=== PATIENT | female | born 1995 | race Caucasian/White ===

== ENCOUNTER 2021-01-21 03:05 | Emergency (ER) | payer MEDICAID ==
[2021-01-21] MEDS ORDERED: Reglan 10 MG/2 ML IV ONE (03:38)
[2021-01-21] MEDS ORDERED: TYLENOL 325 MG PO ONE (03:38)
[2021-01-21] MEDS ORDERED: MORPHINE SULFATE 4 MG INJ IV ONE (03:38)
[2021-01-21] MEDS ORDERED: BENADRYL 50 MG/ML IV ONE (03:38)
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
[2021-01-21] MEDS ORDERED: BENADRYL 50 MG/ML ONE (03:49)
[2021-01-21] MEDS ORDERED: TYLENOL 325 MG ONE ×2 (03:50→03:54)
[2021-01-21] MEDS ORDERED: MORPHINE SULFATE 4 MG INJ ONE ×2 (03:50→06:09)
[2021-01-21] MEDS ORDERED: Reglan 10 MG/2 ML ONE (03:50)
[2021-01-21] MEDS ORDERED: Sodium Chloride 0.9% 1000 ML 1,000 ML ONE (03:50)
[2021-01-21] MEDS: Sodium Chloride 0.9% 1000 ML 1,000 ML IV STA ×2 (03:53→06:19)
[2021-01-21] MEDS ORDERED: MORPHINE SULFATE 4 MG INJ IM ONE (06:08)
[2021-01-21 06:11] VITALS: BP 155/109; PULSE 74
[2021-01-23 08:39] VITALS: O2SAT 99
== END 2021-01-21 06:35 | disposition home or self-care (01) ==
LOC: ED 03:05
DX: G43.909 Migraine, unspecified, not intractable, without status migrainosus (principal)
CPT/HCPCS: 96372; 96374; 96375; 99284; J1200; J2270; A9270-GY

== ENCOUNTER 2021-02-15 21:08 | Emergency (ER) | payer MEDICAID ==
[2021-02-15] MEDS ORDERED: Zofran 4 MG/2 ML VIAL ONE (21:13)
[2021-02-15] MEDS ORDERED: MORPHINE SULFATE 4 MG INJ IV ONE (21:22)
[2021-02-15] MEDS ORDERED: Sodium Chloride 0.9% 1000 ML 1,000 ML IV STA (21:22)
[2021-02-15] MEDS ORDERED: Reglan 10 MG/2 ML IV ONE (21:22)
[2021-02-15] MEDS ORDERED: BENADRYL 50 MG/ML IV ONE (21:22)
[2021-02-15] MEDS ORDERED: Zofran 4 MG/2 ML VIAL IV ONE (21:32)
[2021-02-15] MEDS ORDERED: BENADRYL 50 MG/ML ONE (21:34)
[2021-02-15] MEDS ORDERED: Reglan 10 MG/2 ML ONE (21:35)
[2021-02-15] MEDS ORDERED: MORPHINE SULFATE 4 MG INJ ONE (21:35)
[2021-02-15] MEDS ORDERED: Sodium Chloride 0.9% 1000 ML 1,000 ML ONE (21:35)
[2021-02-15] MEDS ORDERED: MORPHINE SULFATE 2 MG INJ IV ONE (21:39)
[2021-02-15] MEDS ORDERED: MORPHINE SULFATE 2 MG INJ ONE (21:40)
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
[2021-02-15 21:47] LABS: Absolute Neutrophil Ct (ANC) 1.98 (1.4-6.9); BASOPHIL % 0.6 % (0.0-0.4); Basophil (Absolute #) 0.03 (0-0.4); Eosinophil % 4.3 % (0.00-5.0); Eosinophil (Absolute #) 0.21 (0-0.5); Hematocrit 39.9 % (35-47); Hemoglobin 12.9 gm/dl (12.0-16.0); Lymphocyte (Absolute #) 2.21 (1.0-4.6); Mean Cell Volume 94.3 fl (78-100); Mean Corpuscular Hemoglobin 30.5 pg (26-32); Mean Corpuscular Hgb Concent. 32.3 g/dl (32-36); Mean Platelet Volume 9.8 fl (7.5-11.0); Monocyte (Absolute #) 0.48 (0.0-1.3); Monocytes % 9.8 % (0.0-12.0); Neutrophil % 40.3 % (36.0-66.0); Platelet Count 185 K/mm3 (150-450); Red Blood Count 4.23 M/mm3 (4.1-5.4); Red Cell Distribution Width 13.4 % (11.5-14.0); White Blood Count 4.9 K/mm3 (4.0-10.5)
[2021-02-15 21:51] LABS: ALBUMIN 4.2 g/dL (3.5-5.0); ALKALINE PHOSPHATASE 100 U/L (38-126); ANION GAP 21.6 MEQ/L (5-15); BLOOD UREA NITROGEN 12 mg/dL (7-17); CHLORIDE 101 mmol/L (98-107); Calcium 9.4 mg/dL (8.4-10.2); Carbon Dioxide 28 mmol/L (22-30); Creatinine 1 0.51 mg/dL (0.52-1.04); EST GLOMERULAR FILTRATION RATE > 60.0 ML/MIN; Glucose 85 mg/dL (74-106); LIPASE 103 U/L (23-300); SGOT/AST 56 U/L (14-36); SGPT/ALT 87 U/L (0-35); SODIUM 147 mmol/L (137-145); Total Protein 7.6 g/dL (6.3-8.2)
[2021-02-16] MEDS ORDERED: MORPHINE SULFATE 2 MG INJ IV ONE (00:06)
[2021-02-16] MEDS ORDERED: MORPHINE SULFATE 2 MG INJ ONE (00:10)
[2021-02-16 00:40] VITALS: O2SAT 96
[2021-02-16 01:03] VITALS: BP 103/63; PULSE 65
--- NOTE | 2021-02-16 08:44 | XRAY ---
Indication: Aspiration. Comparison: None Portable chest demonstrates a few left perihilar calcified granulomas. Remaining heart and lungs unremarkable. 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 Impression: Nonacute chest with chronic features.
== END 2021-02-16 01:09 | disposition home or self-care (01) ==
LOC: ED 21:08
DX: E86.0 Dehydration (principal); G43.909 Migraine, unspecified, not intractable, without status migrainosus
CPT/HCPCS: 36415; 71045; 80053; 81025; 83690; 85025; 96360; 96361; 96374; 96375; 96376; 99284; J1200; J2270; J2405

== ENCOUNTER 2021-02-17 18:38 | Emergency (ER) | payer MEDICAID ==
[2021-02-17] MEDS ORDERED: TORAdol 30 mg Injection IV ONE (18:53)
[2021-02-17] MEDS ORDERED: Compazine 10 MG/2 ML IV ONE (18:53)
[2021-02-17] MEDS ORDERED: BENADRYL 50 MG/ML IV ONE (18:54)
[2021-02-17] MEDS ORDERED: BENADRYL 50 MG/ML ONE (18:56)
[2021-02-17] MEDS ORDERED: Compazine 10 MG/2 ML ONE (18:56)
[2021-02-17] MEDS ORDERED: Sodium Chloride 0.9% 1000 ML 1,000 ML ONE (18:56)
[2021-02-17] MEDS ORDERED: Sodium Chloride 0.9% 1000 ML 1,000 ML IV SCH (19:00)
[2021-02-17] MEDS ORDERED: TORAdol 30 mg Injection ONE (19:59)
[2021-02-17 20:04] VITALS: O2SAT 96
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
[2021-02-17 21:13] VITALS: BP 135/97; PULSE 64
--- NOTE | 2021-02-18 08:39 | XRAY ---
Indication: Headache, nausea, and vomiting. Multiple contiguous axial images obtained through the head without contrast. Comparison: None Normal appearing brain parenchyma, ventricles, and bony calvarium. Visualized paranasal sinuses and mastoid air cells are clear. Impression: Normal CT head without contrast exam.
== END 2021-02-17 21:18 | disposition home or self-care (01) ==
LOC: ED 18:38
DX: G43.909 Migraine, unspecified, not intractable, without status migrainosus (principal)
CPT/HCPCS: 36000; 70450; 94760; 96360; 96374; 96375; 99284; J1200; J1885

== ENCOUNTER 2021-02-26 23:18 | Emergency (ER) | payer MEDICAID ==
[2021-02-26] MEDS ORDERED: Compazine 10 MG/2 ML IV ONE (23:24)
[2021-02-26] MEDS ORDERED: TORAdol 30 mg Injection IV ONE (23:24)
[2021-02-26] MEDS ORDERED: BENADRYL 12.5 MG/5 ML PO STA (23:25)
[2021-02-26] MEDS ORDERED: Compazine 10 MG/2 ML ONE (23:53)
[2021-02-26] MEDS ORDERED: BENADRYL 12.5 MG/5 ML ONE (23:53)
[2021-02-26] MEDS ORDERED: TORAdol 30 mg Injection ONE (23:53)
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
[2021-02-27 01:23] VITALS: BP 105/56; PULSE 75
[2021-02-27 02:14] VITALS: O2SAT 98
== END 2021-02-27 02:14 | disposition home or self-care (01) ==
LOC: ED 23:18
DX: G43.909 Migraine, unspecified, not intractable, without status migrainosus (principal)
CPT/HCPCS: 96374; 96375; 99284; J1885; A9270-GY

== ENCOUNTER 2024-05-24 12:59 | Inpatient (IN) | payer MEDICAID ==
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
[2024-05-24] MEDS ORDERED: TYLENOL 325 MG ONE (14:06)
[2024-05-24] MEDS ORDERED: Sodium Chloride 0.9% 1000 ML 1,000 ML ONE (14:06)
[2024-05-24] MEDS: TYLENOL 325 MG PO ONE (14:07)
[2024-05-24] MEDS: Sodium Chloride 0.9% 1000 ML 1,000 ML IV STA (14:07)
[2024-05-24 14:35] LABS: Absolute Neutrophil Ct (ANC) 15.53 x10^3/uL (1.56-6.13); BASOPHIL % 0.3 % (0.1-1.2); Basophil (Absolute #) 0.05 x10^3/uL (0.01-0.08); Eosinophil (Absolute #) 0 x10^3/uL (0.04-0.36); Hematocrit 32.1 % (34.1-44.9); Hemoglobin 10.8 g/dL (11.2-15.7); IMMATURE GRAN # 0.23 x10^3u/L (0.001-0.031); IMMATURE GRAN % 1.2 % (0.001-0.429); Lymphocyte (Absolute #) 1.44 x10^3/uL (1.18-3.74); Lymphocytes % 7.5 % (19.3-51.7); Mean Cell Volume 86.1 fL (79.4-94.8); Mean Corpuscular Hgb Concent. 33.6 g/dL (32.2-35.5); Mean Platelet Volume 9.7 fL (9.4-12.3); Monocyte (Absolute #) 1.88 x10^3/uL (0.24-0.86); Monocytes % 9.8 % (4.7-12.5); Neutrophil % 81.2 % (34.0-71.1); Platelet Count 163 x10^3/uL (182-369); Red Blood Count 3.73 x10^6/uL (3.93-5.22); Red Cell Distribution Width 14.6 % (11.7-14.4); White Blood Count 19.1 x10^3/uL (3.98-10.04)
[2024-05-24 14:48] LABS: ALBUMIN 3.6 g/dL (3.5-5.0); ANION GAP 12.4 MEQ/L (5-15); BILIRUBIN,TOTAL 1.1 mg/dL (0.2-1.3); Calcium 8.2 mg/dL (8.4-10.2); Creatinine 1 0.86 mg/dL (0.52-1.04); EST GLOMERULAR FILTRATION RATE 95.5 ML/MIN; Potassium 3.5 mmol/L (3.5-5.1); Total Protein 6.7 g/dL (6.3-8.2)
[2024-05-24 15:12] LABS: Slide Review 1 YES
[2024-05-24 15:19] LABS: HCG URINE TEST NEGATIVE (NEGATIVE)
[2024-05-24] MEDS ORDERED: ROCEPHIN 2 GM/100 ML NACL 2 GM/100 ML IVPB IV ONE (15:20)
[2024-05-24] MEDS: ROCEPHIN 2 GM/100 ML NACL 2 GM/100 ML IVPB IV ONE (15:22)
[2024-05-24 15:49] LABS: Appearance Cloudy (Clear); Bacteria Rare /HPF (None Seen); Bilirubin Negative (Negative); Blood Large (Negative); Glucose, Urine Negative (Negative); Ketones Negative (Negative); Leukocyte Esterase Large (Negative); Nitrite Negative (Negative); Ph 6.5 (4.6-8.0); Protein,Urine Dip 100 (Negative); Urobilinogen 0.2 mg/dL (0.2); WBC >100 /HPF (0-5)
[2024-05-24 15:51] LABS: Epithelial Cells Rare /HPF (None Seen); Hyaline Casts None Seen /LPF (0-2)
--- NOTE | 2024-05-24 16:44 | XRAY ---
CLINICAL HISTORY: abd pain, uti COMPARISON: None TECHNIQUE: Non-contrast CT of the abdomen and pelvis was performed, with the following protocol: axial images, and reconstructed coronal and sagittal images. No intravenous contrast was administered. One of the following dose reduction techniques was utilized for this exam: Automated exposure control, adjustment of the mA and/or kV according to patient size, and use of iterative reconstruction. FINDINGS: Lung bases show left basal consolidation band, with ground glass veiling, may be sequel of previous infection. Abdomen: Liver: Normal in size, shape, and density. No focal lesions, cysts, or masses were identified. Gallbladder and Biliary System: The gallbladder is normal in size and shape. No wall thickening, pericholecystic fluid, or gallstones were identified. Pancreas: Pancreatic head, body, and tail are visualized and appear normal in size and density. No pancreatic masses or calcifications were noted. Spleen: Normal in size, shape, and density. No splenic lesions or masses were identified. Kidneys and Adrenal Glands: Both kidneys are enlarged in size, with mild [id number], no obstructing stones. Focal right renal parenchymal hypodense area in concern for focal acute pyelonephritis. Bilateral perinephris stranding, and retroperitoneal fluid tracking to right iliac fossa. Adrenal glands are unremarkable. Appendix: The appendix is normal in size without cary appendiceal fat stranding, and without an appendicolith. No evidence of appendiceal abscess or perforation. Pelvis: Urinary Bladder: martinez`s catheter in place, diffuse mild smooth wall thickening of 7.5 mm. Uterus: Normal in size and contour. No masses or abnormal thickening. Ovaries: Not well visualized but no gross abnormalities noted. Vagina: Normal in contour and wall thickness. Cervix: No evidence of mass or abnormal thickening. Peritoneal and Retroperitoneal Structures: No free fluid or abnormal fluid collections were identified within the abdomen or pelvis. No lymphadenopathy was noted. Bowel: The visualized bowel loops are normal in caliber and appearance. No evidence of bowel obstruction or wall thickening. Bones and Soft Tissues: Bone window shows mild osteopenia, multilevel facet and sacro-iliac joints (more on left) arthropathy. IMPRESSION: 1. Both kidneys are enlarged in size, with mild [id number], no obstructing stones. 2. Focal right renal parenchymal hypodense area in concern for focal acute pyelonephritis. 3. Bilateral perinephris stranding, and retroperitoneal fluid tracking to right iliac fossa. 4. Urinary Bladder: martinez`s catheter in place, diffuse mild smooth wall thickening of 7.5 mm. 5. Lung bases show left basal consolidation band, with ground glass veiling, may be sequel of previous infection. 6. Bone window shows mild osteopenia, multilevel facet and sacro-iliac joints (more on left) arthropathy. Overall picture of acute upper and lower urinary tract infectious process, denoted by: [facility] ER was called at [phone] at 03:37 PM SURG TECH, 05/24/2024 Merced Fernandez was informed regarding the presence of significant medical findings in the report. Electronically Signed by: Mariya Dimas MD. (05/24/2024 16:40:43 EDT)
[2024-05-24] MEDS ORDERED: Zofran 4 MG/2 ML VIAL ONE (17:40)
[2024-05-24] MEDS: Zofran 4 MG/2 ML VIAL IV ONE (17:41)
[2024-05-24] MEDS ORDERED: SUBLIMAZE 100 MCG/2 ML ONE (17:41)
[2024-05-24] MEDS: SUBLIMAZE 100 MCG/2 ML IV ONE (17:42)
[2024-05-24 19:16] LABS: Hemoglobin 9.8 g/dL (11.2-15.7); Mean Cell Volume 87.5 fL (79.4-94.8); Mean Corpuscular Hemoglobin 28.6 pg (25.6-32.2); Mean Corpuscular Hgb Concent. 32.7 g/dL (32.2-35.5); Mean Platelet Volume 9.6 fL (9.4-12.3); Platelet Count 153 x10^3/uL (182-369); Red Blood Count 3.43 x10^6/uL (3.93-5.22); Red Cell Distribution Width 14.6 % (11.7-14.4); White Blood Count 16.2 x10^3/uL (3.98-10.04)
[2024-05-24 19:36] LABS: ANION GAP 9.4 MEQ/L (5-15); Calcium 7.8 mg/dL (8.4-10.2); Creatinine 1 0.76 mg/dL (0.52-1.04); EST GLOMERULAR FILTRATION RATE 110.8 ML/MIN; PREALBUMIN 4.72 mg/dL (17.6-36.0); Potassium 3.4 mmol/L (3.5-5.1)
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
[2024-05-24] MEDS ORDERED: NON-FORMULARY ITEM (Quetiapine Fumarate [Quetiapine Fumarate] 50 MG Tablet) PO SCH (22:00)
[2024-05-24] MEDS ORDERED: NON-FORMULARY ITEM (Melatonin [Melatonin] 10 MG Tablet) PO SCH (22:00)
[2024-05-24] MEDS ORDERED: LACTOBACILLUS ACIDOPHILUS PO SCH (22:00)
[2024-05-24] MEDS ORDERED: NON-FORMULARY ITEM (Midodrine Hcl [Midodrine Hcl] 10 MG Tablet) PO SCH (22:00)
[2024-05-24] MEDS ORDERED: GUAIFENESIN 1200 MG PO SCH (22:00)
[2024-05-24] MEDS ORDERED: NON-FORMULARY ITEM (Baclofen [Baclofen] 5 MG Tablet) PO SCH (22:00)
[2024-05-24] MEDS ORDERED: OXYCODONE HCL 15 MG PO SCH (22:00)
[2024-05-24] MEDS ORDERED: NON-FORMULARY ITEM (Sertraline Hcl [Sertraline Hcl] 100 MG Tablet) PO SCH (22:00)
[2024-05-24] MEDS ORDERED: NON-FORMULARY ITEM (Gabapentin [Gabapentin] 800 MG Tablet) PO SCH (22:00)
[2024-05-24] MEDS ORDERED: SIMETHICONE 125 MG PO SCH (22:00)
[2024-05-24] MEDS ORDERED: XANAX 1 MG PO SCH (22:00)
[2024-05-24] MEDS: Sodium Chloride 0.9% 1000 ML 1,000 ML IV SCH (22:23)
[2024-05-24] MEDS: Mylicon 80MG PO SCH (22:23)
[2024-05-24] MEDS: ZOLOFT 50 MG TABLET PO SCH (22:26)
[2024-05-24] MEDS: Neurontin PO SCH (22:27)
[2024-05-24] MEDS: SENOKOT 8.6 MG PO SCH (22:27)
[2024-05-24] MEDS: MELATONIN PO SCH (22:27)
[2024-05-24] MEDS: LIORESAL 10 MG PO SCH (22:27)
[2024-05-24] MEDS: xanAX 0.5 MG PO SCH (22:29)
[2024-05-24] MEDS: Mucinex 600MG ER Tabs PO SCH (22:29)
[2024-05-24] MEDS: Pepcid 20 MG PO SCH (22:29)
[2024-05-24] MEDS: Oxy-IR 5 MG PO SCH (22:29)
[2024-05-24] MEDS: Docusate Sodium 100 MG PO SCH (22:29)
[2024-05-24] MEDS: Acidophilus TABLET PO SCH (22:29)
[2024-05-24] MEDS: Miralax Powder 17GM PACKET PO SCH (22:30)
[2024-05-24] MEDS: DUONEB 0.5-3 MG/3 ml Neb IH SCH (22:31)
[2024-05-24] MEDS: Zithromax 500 MG/ 250 ML NaCl Premix 500 MG/250 ML IVPB IV SCH (22:33)
[2024-05-24] MEDS: PROAMATINE PO SCH (22:33)
--- NOTE | 2024-05-24 23:21 | XRAY ---
CLINICAL HISTORY: pna COMPARISON: None. TECHNIQUE: Contiguous axial CT images of the chest were acquired without administration of intravenous contrast. Coronal and sagittal reconstructions were obtained. One of the following dose reduction techniques were utilized for this exam: Automated exposure control, adjustment of the mA and/or kV according to patient size, use of iterative reconstruction. FINDINGS: Lungs: 8 mm calcified nodule in the apical posterior segment of left upper lobe with thick fibroatelectatic bands and posterior parietal pleural thickening in the left lung. No evidence of interstitial lung disease or emphysema. No pleural effusion or pleural thickening. Mediastinum: Few subcentimeteric mediastinal nodes. The heart size is within normal limits. Hilar Structures: The hilar structures appear normal without enlargement or abnormality. Trachea and Main Bronchi: The trachea and main bronchi are patent without evidence of obstruction or abnormality. Chest Wall: The chest wall is unremarkable with no evidence of soft tissue or bony abnormalities. Upper Abdomen: The abdominal findings are discussed in separate report. Bones: Dextroscoliosis of thoracic spine. Lower cervical spinal fixation status. IMPRESSION: 1. 8 mm calcified nodule in the apical posterior segment of left upper lobe with thick fibro atelectatic bands and posterior parietal pleural thickening in left lung, Secondary to previous infection 2. No acute pathology is noted in both lungs. Electronically Signed by: Mariya Dimas MD. (05/24/2024 23:17:43 EDT)
[2024-05-24] MEDS: Zofran 4 MG/2 ML VIAL IV PRN (23:36)
[2024-05-24] MEDS: PIPERACILLIN/TAZOBACTAM 3.375 GM in Sodium Chloride 100ML MINI-BAG PLUS 100 ML IV SCH (23:36)
[2024-05-25 05:01] LABS: Absolute Neutrophil Ct (ANC) 10.45 x10^3/uL (1.56-6.13); BASOPHIL % 0.2 % (0.1-1.2); Basophil (Absolute #) 0.02 x10^3/uL (0.01-0.08); Eosinophil % 0.5 % (0.7-5.8); Eosinophil (Absolute #) 0.06 x10^3/uL (0.04-0.36); Hematocrit 26.7 % (34.1-44.9); Hemoglobin 8.5 g/dL (11.2-15.7); IMMATURE GRAN # 0.07 x10^3u/L (0.001-0.031); IMMATURE GRAN % 0.5 % (0.001-0.429); Lymphocytes % 9.2 % (19.3-51.7); Mean Cell Volume 87.8 fL (79.4-94.8); Mean Corpuscular Hgb Concent. 31.8 g/dL (32.2-35.5); Mean Platelet Volume 9.8 fL (9.4-12.3); Monocyte (Absolute #) 1.23 x10^3/uL (0.24-0.86); Monocytes % 9.4 % (4.7-12.5); Neutrophil % 80.2 % (34.0-71.1); Platelet Count 115 x10^3/uL (182-369); Red Blood Count 3.04 x10^6/uL (3.93-5.22); Red Cell Distribution Width 14.6 % (11.7-14.4)
--- NOTE | 2024-05-25 05:16 | PCM.NOTE ---
Date and Time: 05/25/24 0510 Subjective Assessment: Ms. Arzola is a 28 year old female with a pmhx of paraplegia with an indwelling catheter, recurrent UTIs/kidney stones, DVT, orthostatic hypotension (on midodrine) who presented to ED 05/24/24 with complaints of a 4-5 day history of fever (Tmax 103), cough, left sided abdominal/flank pain, nausea, vomiting, and hematuria. Patient septic on presentation with a temp of 103.9, tachycardic with HR at 115, and hypotensive with BP of 79/53. Ct of the abdomen/pelvis demonstrates bilateral enlarged kidneys with mild [id number], no obstructing stones. right side acute pyelonephritis and bilateral perinephric stranding and retroperitoneal fluid tracking into right iliac. Lab findings remarkable for leukocytosis with WBC at 19.1, normocytic anemia with hemoglobin at 10.8, thrombocytopenia with plts at 163, hyponatremia with sodium at 128, and UA suspicious for infection. Patient given fluid bolus and Rocephin in ED. CT chest showing no acute findings. Admission for sepsis secondary to pyelonephritis/hyponatremia. Plan for continued zosyn. 05/25/24: Met with patient bedside. Feeling much better today. Endorses continued left flank pain but this has improved some. Martinez cath secured - no hematuria noted- good output with clear/yellow urine. Afebrile overnight. Urine culture with gram negative ID. Plan to continue Zosyn - follow culture. Denies fever,cough, sob, cp, abdominal pain, dizziness, N/V/D. - Review of Systems Constitutional: Weakness Eyes: No Symptoms Ears, Nose, & Throat: No Symptoms Respiratory: Cough Cardiac: No Symptoms Genitourinary Symptoms: Flank Pain (left) Musculoskeletal: No Symptoms Skin: No Symptoms Neurological: Paralysis (BLE) Psychological: No Symptoms Endocrine: No Symptoms Hematologic/Lymphatic: Anemia Immunological/Allergic: No Symptoms Objective Exam General Appearance: no apparent distress Neurologic Exam: alert, oriented x 3, cooperative Skin Exam: dry, pale Wound Assessment: Skin/Wound Assessment Wound/Incision Assessment Start: 05/24/24 18:30 Text: Status: Active Freq: Q6H Protocol: Document 05/25/24 00:30 MP (Rec: 05/25/24 04:40 MP [id number]) Wound/Incision Assessment Right Anterior Foot Wound Assessment Shift Assessment Wound Type Abrasion Wound Stage Non Pressure Wound Comment sores on anterior foot and ankle Right Posterior Heel Wound Assessment Admission Wound Type Pressure Ulcer Wound Bed Greatest Portion Dusky Red Wound Bed Lesser Portion Black (Eschar) Wound Photo Photo Taken Yes Eye Exam: PERRL Ears, Nose, Throat Exam: normal ENT inspection Neck Exam: normal inspection Respiratory Exam: normal breath sounds, lungs clear Cardiovascular Exam: regular rate/rhythm, normal heart sounds Gastrointestinal/Abdomen Exam: soft, normal bowel sounds, other (martinez cath) Extremity Exam: paralysis (paraplegia) Back Exam: normal inspection Pelvic Exam: deferred Rectal Exam: deferred Objective Data Vital Signs: Vital Signs - 24 hr Temp Pulse Resp BP BP Pulse Ox 05/25/24 03:00 99.8 F 104 H 102/51 94 L 05/24/24 23:20 98.1 F 89 18 88/49 99 05/24/24 22:35 94 H 16 99 05/24/24 20:00 97.7 F 87 16 102/53 96 05/24/24 19:35 96 05/24/24 18:21 97.7 F 87 16 102/53 96 05/24/24 18:08 97.7 F 87 16 102/53 96 05/24/24 18:01 94 L 05/24/24 17:40 97 05/24/24 17:30 82 16 94/55 94 L 05/24/24 17:00 75 92/44 94 L 05/24/24 16:30 78 16 93/44 93 L 05/24/24 16:07 98.8 F 70 16 95/43 93 L 05/24/24 15:30 94/54 05/24/24 15:01 91/50 93 L 05/24/24 14:30 18 L 97/57 97 05/24/24 14:06 100 H 16 110/74 99 05/24/24 14:03 105 H 18 134/104 97 05/24/24 13:00 103.9 F 115 H 18 79/53 97 Pain Assessment - Last Documented Pain Intensity 0 Pain Scale Used 0-10 Pain Scale Intake and Output: Intake & Output 05/22/24 05/23/24 05/24/24 05/25/24 11:59 11:59 11:59 11:59 Output Total 1600 Balance -1600 Weight 73.1 kg Lab Results: Lab Results-Last 24 Hours 05/24/24 05/24/24 05/24/24 Range/Units 13:47 14:21 14:21 WBC 19.1 H (3.98-10.04) x10^3/uL RBC 3.73 L (3.93-5.22) x10^6/uL Hgb 10.8 L (11.2-15.7) g/dL Hct 32.1 L (34.1-44.9) % MCV 86.1 (79.4-94.8) fL MCH 29.0 (25.6-32.2) pg MCHC 33.6 (32.2-35.5) g/dL RDW 14.6 H (11.7-14.4) % Plt Count 163 L (182-369) x10^3/uL MPV 9.7 (9.4-12.3) fL Gran % 81.2 H (34.0-71.1) % Immature Gran % (Auto) 1.2 H (0.001-0.429) % Nucleat RBC Rel Count 0.0 (0.00-0.2) % Eos # (Auto) 0 L (0.04-0.36) x10^3/uL Immature Gran # (Auto) 0.23 H (0.001-0.031) x10^3u/L Absolute Lymphs (auto) 1.44 (1.18-3.74) x10^3/uL Absolute Monos (auto) 1.88 H (0.24-0.86) x10^3/uL Absolute Nucleated RBC 0.00 (0.00-0.012) x10^3u/L Lymphocytes % 7.5 L (19.3-51.7) % Monocytes % 9.8 (4.7-12.5) % Eosinophils % 0.0 L (0.7-5.8) % Basophils % 0.3 (0.1-1.2) % Absolute Granulocytes 15.53 H (1.56-6.13) x10^3/uL Basophils # 0.05 (0.01-0.08) x10^3/uL Sodium 128 L (135-145) mmol/L Potassium 3.5 (3.5-5.1) mmol/L Chloride 96 L (98-107) mmol/L Carbon Dioxide 23 (22-30) mmol/L Anion Gap 12.4 (5-15) MEQ/L BUN 18 H (7-17) mg/dL Creatinine 0.86 (0.52-1.04) mg/dL Estimated GFR 95.5 ML/MIN Glucose 106 (74-106) mg/dL Lactic Acid 0.9 (0.4-2.0) Calcium 8.2 L (8.4-10.2) mg/dL Total Bilirubin 1.10 (0.2-1.3) mg/dL AST 26 (14-36) U/L ALT 30 (0-35) U/L Alkaline Phosphatase 75 (38-126) U/L Serum Total Protein 6.7 (6.3-8.2) g/dL Albumin 3.6 (3.5-5.0) g/dL Prealbumin (17.6-36.0) mg/dL Lipase 15 L (23-300) U/L Urine Color (Yellow) Urine Appearance (Clear) Urine pH (4.6-8.0) Ur Specific [place] (1.005-1.030) Urine Protein (Negative) Urine Glucose (UA) (Negative) mg/dL Urine Ketones (Negative) Urine Blood (Negative) Urine Nitrite (Negative) Urine Bilirubin (Negative) Urine Urobilinogen (0.2) mg/dL Ur Leukocyte Esterase (Negative) U Hyaline Cast (Auto) (0-2) /LPF Urine Microscopic RBC (0-5) /HPF Urine Microscopic WBC (0-5) /HPF Ur Epithelial Cells (None Seen) /HPF Urine Bacteria (None Seen) /HPF Urine Culture Reflexed (NO) Urine HCG, Qual (NEGATIVE) Slides for Path Review YES 05/24/24 05/24/24 05/24/24 Range/Units 14:47 15:08 19:10 WBC 16.2 H (3.98-10.04) x10^3/uL RBC 3.43 L (3.93-5.22) x10^6/uL Hgb 9.8 L (11.2-15.7) g/dL Hct 30.0 L (34.1-44.9) % MCV 87.5 (79.4-94.8) fL MCH 28.6 (25.6-32.2) pg MCHC 32.7 (32.2-35.5) g/dL RDW 14.6 H (11.7-14.4) % Plt Count 153 L (182-369) x10^3/uL MPV 9.6 (9.4-12.3) fL Gran % (34.0-71.1) % Immature Gran % (Auto) (0.001-0.429) % Nucleat RBC Rel Count (0.00-0.2) % Eos # (Auto) (0.04-0.36) x10^3/uL Immature Gran # (Auto) (0.001-0.031) x10^3u/L Absolute Lymphs (auto) (1.18-3.74) x10^3/uL Absolute Monos (auto) (0.24-0.86) x10^3/uL Absolute Nucleated RBC (0.00-0.012) x10^3u/L Lymphocytes % (19.3-51.7) % Monocytes % (4.7-12.5) % Eosinophils % (0.7-5.8) % Basophils % (0.1-1.2) % Absolute Granulocytes (1.56-6.13) x10^3/uL Basophils # (0.01-0.08) x10^3/uL Sodium (135-145) mmol/L Potassium (3.5-5.1) mmol/L Chloride (98-107) mmol/L Carbon Dioxide (22-30) mmol/L Anion Gap (5-15) MEQ/L BUN (7-17) mg/dL Creatinine (0.52-1.04) mg/dL Estimated GFR ML/MIN Glucose (74-106) mg/dL Lactic Acid (0.4-2.0) Calcium (8.4-10.2) mg/dL Total Bilirubin (0.2-1.3) mg/dL AST (14-36) U/L ALT (0-35) U/L Alkaline Phosphatase (38-126) U/L Serum Total Protein (6.3-8.2) g/dL Albumin (3.5-5.0) g/dL Prealbumin (17.6-36.0) mg/dL Lipase (23-300) U/L Urine Color [place] A (Yellow) Urine Appearance Cloudy A (Clear) Urine pH 6.5 (4.6-8.0) Ur Specific [place] 1.010 (1.005-1.030) Urine Protein 100 A (Negative) Urine Glucose (UA) Negative (Negative) mg/dL Urine Ketones Negative (Negative) Urine Blood Large A (Negative) Urine Nitrite Negative (Negative) Urine Bilirubin Negative (Negative) Urine Urobilinogen 0.2 (0.2) mg/dL Ur Leukocyte Esterase Large A (Negative) U Hyaline Cast (Auto) None Seen (0-2) /LPF Urine Microscopic RBC 6-10 A (0-5) /HPF Urine Microscopic WBC >100 A (0-5) /HPF Ur Epithelial Cells Rare (None Seen) /HPF Urine Bacteria Rare A (None Seen) /HPF Urine Culture Reflexed YES (NO) Urine HCG, Qual NEGATIVE (NEGATIVE) Slides for Path Review 05/24/24 Range/Units 19:10 WBC (3.98-10.04) x10^3/uL RBC (3.93-5.22) x10^6/uL Hgb (11.2-15.7) g/dL Hct (34.1-44.9) % MCV (79.4-94.8) fL MCH (25.6-32.2) pg MCHC (32.2-35.5) g/dL RDW (11.7-14.4) % Plt Count (182-369) x10^3/uL MPV (9.4-12.3) fL Gran % (34.0-71.1) % Immature Gran % (Auto) (0.001-0.429) % Nucleat RBC Rel Count (0.00-0.2) % Eos # (Auto) (0.04-0.36) x10^3/uL Immature Gran # (Auto) (0.001-0.031) x10^3u/L Absolute Lymphs (auto) (1.18-3.74) x10^3/uL Absolute Monos (auto) (0.24-0.86) x10^3/uL Absolute Nucleated RBC (0.00-0.012) x10^3u/L Lymphocytes % (19.3-51.7) % Monocytes % (4.7-12.5) % Eosinophils % (0.7-5.8) % Basophils % (0.1-1.2) % Absolute Granulocytes (1.56-6.13) x10^3/uL Basophils # (0.01-0.08) x10^3/uL Sodium 130 L (135-145) mmol/L Potassium 3.4 L (3.5-5.1) mmol/L Chloride 101 (98-107) mmol/L Carbon Dioxide 23 (22-30) mmol/L Anion Gap 9.4 (5-15) MEQ/L BUN 16 (7-17) mg/dL Creatinine 0.76 (0.52-1.04) mg/dL Estimated GFR 110.8 ML/MIN Glucose 97 (74-106) mg/dL Lactic Acid (0.4-2.0) Calcium 7.8 L (8.4-10.2) mg/dL Total Bilirubin (0.2-1.3) mg/dL AST (14-36) U/L ALT (0-35) U/L Alkaline Phosphatase (38-126) U/L Serum Total Protein (6.3-8.2) g/dL Albumin (3.5-5.0) g/dL Prealbumin 4.72 L (17.6-36.0) mg/dL Lipase (23-300) U/L Urine Color (Yellow) Urine Appearance (Clear) Urine pH (4.6-8.0) Ur Specific [place] (1.005-1.030) Urine Protein (Negative) Urine Glucose (UA) (Negative) mg/dL Urine Ketones (Negative) Urine Blood (Negative) Urine Nitrite (Negative) Urine Bilirubin (Negative) Urine Urobilinogen (0.2) mg/dL Ur Leukocyte Esterase (Negative) U Hyaline Cast (Auto) (0-2) /LPF Urine Microscopic RBC (0-5) /HPF Urine Microscopic WBC (0-5) /HPF Ur Epithelial Cells (None Seen) /HPF Urine Bacteria (None Seen) /HPF Urine Culture Reflexed (NO) Urine HCG, Qual (NEGATIVE) Slides for Path Review Radiology Exams: Radiology Procedures Category Date Time Status ABDOMEN AND PELVIS W/0 CONTRAS [CT] Stat Exams 05/24/24 13:47 Completed CHEST WITHOUT CONTRAST [CT] Stat Exams 05/24/24 21:14 Completed Assessment/Plan (1) Sepsis Current Visit: Yes Status: Acute Assessment & Plan: -Most likely secondary to UTI - meeting criteria on admission with tachycardia, febrile, known source of infection, elevated lactate, hypotension -2L fluid bolus given -LA now wnl -WBC downtrending 13.0<16.2 -Zosyn/azithromycin started -continue -CT abd/pelvis demonstrates bilateral enlarged kidneys with mild [id number], no obstructing stones. right side acute pyelonephritis and bilateral perinephric stranding and retroperitoneal fluid tracking into right iliac. -blood culture pending -afebrile overnight -follow urine and blood cultures - urine cult pre-sanchez with gram - ID -supplemental oxygen with goal spo2 >92% - currently on RA (2) Acute pyelonephritis Current Visit: Yes Status: Acute Assessment & Plan: -as demonstrate on CT- see sepsis Code(s): N10 - ACUTE PYELONEPHRITIS (3) Pneumonia Current Visit: Yes Status: Acute Assessment & Plan: -CT Chest: IMPRESSION: 1. 8 mm calcified nodule in the apical posterior segment of left upper lobe with thick fibro atelectatic bands and posterior parietal pleural thickening in left lung, Secondary to previous infection 2. No acute pathology is noted in both lungs. -Continue zosyn/azithromycin Code(s): J18.9 - PNEUMONIA, UNSPECIFIED ORGANISM (4) Chronic indwelling Martinez catheter Current Visit: Yes Status: Acute Assessment & Plan: -Catheter changed in ED- monitor output closely - no obstruction noted on CT Code(s): Z97.8 - PRESENCE OF OTHER SPECIFIED DEVICES (5) Hypokalemia Current Visit: Yes Status: Acute Assessment & Plan: -replenish per protocol -tele Code(s): E87.6 - HYPOKALEMIA (6) Recurrent UTI Current Visit: Yes Status: Acute Assessment & Plan: - Zosyn given prior UTIs UCx pending; BCx pending; sputum Cx ordered Code(s): N39.0 - URINARY TRACT INFECTION, SITE NOT SPECIFIED (7) History of orthostatic hypotension Current Visit: Yes Status: Acute Assessment & Plan: -continue home midodrine Code(s): Z86.79 - PERSONAL HISTORY OF OTHER DISEASES OF THE CIRCULATORY SYSTEM (8) History of DVT (deep vein thrombosis) Current Visit: Yes Status: Acute Assessment & Plan: -hold eliquis until hematuria resolves Code(s): Z86.718 - PERSONAL HISTORY OF OTHER VENOUS THROMBOSIS AND EMBOLISM (9) Hyponatremia Current Visit: Yes Status: Acute Assessment & Plan: -improving with IVF - continue to monitor Code(s): E87.1 - HYPO-OSMOLALITY AND HYPONATREMIA (10) Paraplegia Current Visit: Yes Status: Acute Assessment & Plan: -noted adds complexity - chronic indwelling catheter Code(s): G82.20 - PARAPLEGIA, UNSPECIFIED
[2024-05-25 05:24] LABS: ALBUMIN 2.9 g/dL (3.5-5.0); ANION GAP 10.2 MEQ/L (5-15); BILIRUBIN,TOTAL 0.8 mg/dL (0.2-1.3); Calcium 7.5 mg/dL (8.4-10.2); Creatinine 1 0.66 mg/dL (0.52-1.04); Potassium 3.4 mmol/L (3.5-5.1); Total Protein 5.9 g/dL (6.3-8.2)
[2024-05-25] MEDS ORDERED: MELATONIN PO SCH (09:01)
[2024-05-25] MEDS: PROAMATINE PO SCH ×2 (09:16→10:57)
[2024-05-25] MEDS ORDERED: TYLENOL 325 MG PO SCH (10:00)
[2024-05-25] MEDS ORDERED: Dulcolax 10 MG SUPP RC SCH (10:00)
[2024-05-25] MEDS: ATARAX 25 MG PO SCH (10:58)
[2024-05-25] MEDS: Acidophilus TABLET PO SCH (11:06)
[2024-05-25] MEDS: Cyclobenzaprine 10 MG PO SCH (11:06)
[2024-05-25] MEDS: Klor Con PO SCH (11:07)
[2024-05-25] MEDS: Docusate Sodium 100 MG PO SCH (11:07)
[2024-05-25] MEDS: Vitamin B-12 500 MCG PO SCH (11:07)
[2024-05-25] MEDS: LACTULOSE 20 GM/30ML UD CUP PO PRN (11:17)
[2024-05-25] MEDS: BUSPAR 5 MG PO SCH (11:17)
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
[2024-05-25] MEDS: ULTRAM 50 MG PO SCH (12:25)
--- NOTE | 2024-05-25 12:37 | XRAY ---
Indication: Nonhealing heel. Comparison: None 3 nonweightbearing views right foot demonstrates osteopenia, remote 1st-3rd tarsometatarsal arthrodesis with intact screws, and incidental tiny cuboid accessory ossicle. No other bony, articular, or soft tissue abnormalities.
--- NOTE | 2024-05-25 14:33 | XRAY ---
Indication: Right heel ulcer. Paraplegia. Sagittal, coronal, and axial MRI right ankle performed without contrast using T1, T2, and STIR sequences. Comparison: None Right ankle mortise anatomic without abnormal effusion. Posterior lateral heel demonstrates mild subcutaneous soft tissue swelling/edema signal with small focus posterior decubitus ulcer. No focal solid/cystic soft tissue mass or abnormal fluid collection. Mid to posterior calcaneus demonstrates moderate size focus of bone edema signal, probable osteomyelitis. Elsewhere no acute fracture or suspicious bony lesions. Ferromagnetic artifact from tarsometatarsal arthrodesis. Major medial/lateral ankle ligaments/tendons and Achilles tendon intact without abnormal signal. Impression: Small focus known decubitus ulcer posterior heel with surrounding soft tissue swelling/edema. Bony edema signal mid to posterior calcaneus likely represents osteomyelitis.
[2024-05-25] MEDS ORDERED: ULTRAM 50 MG PO SCH (15:00)
[2024-05-25] MEDS ORDERED: PHARMACY DOSING REQUIRED: VANCOMYCIN IV SCH (15:30)
[2024-05-25] MEDS: VANCOMYCIN 1 GRAM/200 ML BAG 1 GM/200 ML PIGGYBACK IV SCH (16:31)
--- NOTE | 2024-05-25 16:48 | XRAY ---
Indication: Nonhealing heel. Two-dimensional sonogram and color Doppler imaging major arteries right leg performed. Comparison: None Visualized right common femoral, deep femoral, superficial femoral, and posterior tibial arteries are widely patent. Mild arteriosclerotic disease in the remaining popliteal and dorsal pedal arteries. Arterial waveforms are multiphasic throughout right leg. Unable to obtain ankle brachial index due to indwelling IV right upper extremity and right ankle wound. Impression: Mild arteriosclerotic disease popliteal and dorsal pedal arteries without critical stenosis/obstruction.
[2024-05-25] MEDS: MORPHINE SULFATE 2 MG INJ IV PRN (18:49)
[2024-05-25] MEDS: DUONEB 0.5-3 MG/3 ml Neb IH SCH (19:29)
[2024-05-25] MEDS: MELATONIN PO SCH (20:35)
[2024-05-25] MEDS ORDERED: Zithromax 500 MG/ 250 ML NaCl Premix 500 MG/250 ML IVPB IV SCH (22:00)
--- NOTE | 2024-05-26 05:06 | PCM.NOTE ---
Date and Time: 05/26/24 0505 Subjective Assessment: Ms. Arzola is a 28 year old female with a pmhx of paraplegia with an indwelling catheter, recurrent UTIs/kidney stones, DVT, orthostatic hypotension (on midodrine) who presented to ED 05/24/24 with complaints of a 4-5 day history of fever (Tmax 103), cough, left sided abdominal/flank pain, nausea, vomiting, and hematuria. Patient septic on presentation with a temp of 103.9, tachycardic with HR at 115, and hypotensive with BP of 79/53. Ct of the abdomen/pelvis demonstrates bilateral enlarged kidneys with mild [id number]-[id number], no obstructing stones. right side acute pyelonephritis and bilateral perinephric stranding and retroperitoneal fluid tracking into right iliac. Lab findings remarkable for leukocytosis with WBC at 19.1, normocytic anemia with hemoglobin at 10.8, thrombocytopenia with plts at 163, hyponatremia with sodium at 128, and UA suspicious for infection. Patient given fluid bolus and Rocephin in ED. CT chest showing no acute findings. Admission for sepsis secondary to pyelonephritis/hyponatremia. Plan for continued zosyn. Right heel ulcer on exam - podiatry consulted - MRI concerning for OM. Podiatry recommendations - obtain bone biopsy and bone culture and will likely treat conservatively with bone debridement. This can be performed at bedside. 05/25/24: Met with patient bedside. Feeling much better today. Endorses continued left flank pain but this has improved some. Ashford cath secured - no hematuria noted- good output with clear/yellow urine. Afebrile overnight. Urine culture with gram negative ID. Plan to continue Zosyn - follow culture. Denies fever,cough, sob, cp, abdominal pain, dizziness, N/V/D. 05/26: Patient is feeling better today. Endorses left foot/ankle pain and mild left flank pain. Patient states she is on oxy ER at home. Will continue. Discussed MRI findings concerning for OM - per podiatry notes, plan for possible bone debridement. WBC now WNL. Continue Vanc/Zosyn for now. - Review of Systems Constitutional: No Symptoms Eyes: No Symptoms Ears, Nose, & Throat: No Symptoms Respiratory: No Symptoms Cardiac: No Symptoms Abdominal/Gastrointestinal: No Symptoms Genitourinary Symptoms: Flank Pain (left) Musculoskeletal: Joint Pain (left ankle) Skin: Other (right heel pressure ulcer stage 3) Neurological: Paralysis Psychological: No Symptoms Endocrine: No Symptoms Hematologic/Lymphatic: No Symptoms Immunological/Allergic: No Symptoms Objective Exam General Appearance: no apparent distress Neurologic Exam: alert, oriented x 3, cooperative Skin Exam: pale, other (Right heel stage 3 pressure ulcer) Wound Assessment: Skin/Wound Assessment Wound/Incision Assessment Start: 05/24/24 18:30 Text: Status: Active Freq: Q6H Protocol: Document 05/26/24 00:00 MP (Rec: 05/26/24 00:15 MP [id number]) Wound/Incision Assessment Right Anterior Foot Wound Assessment Shift Assessment Wound Type Abrasion Wound Stage Non Pressure Wound Comment wrapped per podiatry Right Posterior Heel Wound Assessment Shift Assessment Wound Type Pressure Ulcer Comment wrapped per podiatry Wound Photo Photo Taken No Comment: photo taken at admission Eye Exam: PERRL Ears, Nose, Throat Exam: normal ENT inspection Neck Exam: normal inspection Respiratory Exam: normal breath sounds, lungs clear Cardiovascular Exam: regular rate/rhythm, normal heart sounds Gastrointestinal/Abdomen Exam: soft, normal bowel sounds Extremity Exam: paralysis Back Exam: normal inspection Pelvic Exam: deferred Objective Data Vital Signs: Vital Signs - 24 hr Temp Pulse Resp BP Pulse Ox 05/26/24 00:00 97.7 F 90 15 126/82 96 05/25/24 19:49 98.6 F 87 16 111/62 95 05/25/24 19:10 95 H 16 95 05/25/24 15:20 87 16 94 L 05/25/24 15:00 98.1 F 82 18 121/63 96 05/25/24 11:00 98.6 F 91 H 18 111/59 95 05/25/24 07:00 98.4 F 96 H 16 94/50 92 L 05/25/24 06:39 85 16 94 L Pain Assessment - Last Documented Pain Intensity 5 Pain Scale Used 0-10 Pain Scale Intake and Output: Intake & Output 05/23/24 05/24/24 05/25/24 05/26/24 11:59 11:59 11:59 11:59 Intake Total 120 2413 Output Total 1600 7200 Balance -4450 -2435 Weight 73.1 kg Lab Results: Lab Results-Last 24 Hours 05/25/24 05/25/24 05/25/24 Range/Units 04:50 04:50 04:50 WBC 13.0 H (3.98-10.04) x10^3/uL RBC 3.04 L (3.93-5.22) x10^6/uL Hgb 8.5 L (11.2-15.7) g/dL Hct 26.7 L (34.1-44.9) % MCV 87.8 (79.4-94.8) fL MCH 28.0 (25.6-32.2) pg MCHC 31.8 L (32.2-35.5) g/dL RDW 14.6 H (11.7-14.4) % Plt Count 115 L (182-369) x10^3/uL MPV 9.8 (9.4-12.3) fL Gran % 80.2 H (34.0-71.1) % Immature Gran % (Auto) 0.5 H (0.001-0.429) % Nucleat RBC Rel Count 0.0 (0.00-0.2) % Eos # (Auto) 0.06 (0.04-0.36) x10^3/uL Immature Gran # (Auto) 0.07 H (0.001-0.031) x10^3u/L Absolute Lymphs (auto) 1.20 (1.18-3.74) x10^3/uL Absolute Monos (auto) 1.23 H (0.24-0.86) x10^3/uL Absolute Nucleated RBC 0.00 (0.00-0.012) x10^3u/L Lymphocytes % 9.2 L (19.3-51.7) % Monocytes % 9.4 (4.7-12.5) % Eosinophils % 0.5 L (0.7-5.8) % Basophils % 0.2 (0.1-1.2) % Absolute Granulocytes 10.45 H (1.56-6.13) x10^3/uL Basophils # 0.02 (0.01-0.08) x10^3/uL Sodium 129 L (135-145) mmol/L Potassium 3.4 L (3.5-5.1) mmol/L Chloride 100 (98-107) mmol/L Carbon Dioxide 22 (22-30) mmol/L Anion Gap 10.2 (5-15) MEQ/L BUN 12 (7-17) mg/dL Creatinine 0.66 (0.52-1.04) mg/dL Estimated GFR 124.0 ML/MIN Glucose 92 (74-106) mg/dL Calcium 7.5 L (8.4-10.2) mg/dL Magnesium 2.0 (1.6-2.3) mg/dL Total Bilirubin 0.80 (0.2-1.3) mg/dL AST 18 (14-36) U/L ALT 21 (0-35) U/L Alkaline Phosphatase 65 (38-126) U/L Serum Total Protein 5.9 L (6.3-8.2) g/dL Albumin 2.9 L (3.5-5.0) g/dL Procalcitonin (0.030-0.080) ng/mL 05/25/24 05/25/24 05/25/24 Range/Units 05:20 15:18 17:50 WBC (3.98-10.04) x10^3/uL RBC (3.93-5.22) x10^6/uL Hgb (11.2-15.7) g/dL Hct (34.1-44.9) % MCV (79.4-94.8) fL MCH (25.6-32.2) pg MCHC (32.2-35.5) g/dL RDW (11.7-14.4) % Plt Count (182-369) x10^3/uL MPV (9.4-12.3) fL Gran % (34.0-71.1) % Immature Gran % (Auto) (0.001-0.429) % Nucleat RBC Rel Count (0.00-0.2) % Eos # (Auto) (0.04-0.36) x10^3/uL Immature Gran # (Auto) (0.001-0.031) x10^3u/L Absolute Lymphs (auto) (1.18-3.74) x10^3/uL Absolute Monos (auto) (0.24-0.86) x10^3/uL Absolute Nucleated RBC (0.00-0.012) x10^3u/L Lymphocytes % (19.3-51.7) % Monocytes % (4.7-12.5) % Eosinophils % (0.7-5.8) % Basophils % (0.1-1.2) % Absolute Granulocytes (1.56-6.13) x10^3/uL Basophils # (0.01-0.08) x10^3/uL Sodium 133 L (135-145) mmol/L Potassium 3.5 (3.5-5.1) mmol/L Chloride (98-107) mmol/L Carbon Dioxide (22-30) mmol/L Anion Gap (5-15) MEQ/L BUN (7-17) mg/dL Creatinine (0.52-1.04) mg/dL Estimated GFR ML/MIN Glucose (74-106) mg/dL Calcium (8.4-10.2) mg/dL Magnesium (1.6-2.3) mg/dL Total Bilirubin (0.2-1.3) mg/dL AST (14-36) U/L ALT (0-35) U/L Alkaline Phosphatase (38-126) U/L Serum Total Protein (6.3-8.2) g/dL Albumin (3.5-5.0) g/dL Procalcitonin 1.800 H (0.030-0.080) ng/mL Radiology Exams: Radiology Procedures Category Date Time Status ABDOMEN AND PELVIS W/0 CONTRAS [CT] Stat Exams 05/24/24 13:47 Completed ARTERIAL UNILAT/LTD LOWER EXT [US] Stat Exams 05/25/24 11:52 Completed CHEST WITHOUT CONTRAST [CT] Stat Exams 05/24/24 21:14 Completed FOOT (MINIMUM 3 VIEWS) Stat Exams 05/25/24 11:52 Completed MRI LOWER EXT WITH CONTRAST [MRI] Routine Exams 05/25/24 11:49 Completed Multi-Disciplinary Progress Notes: Multi-Disciplinary Progress Notes 05/25/24 15:47 Pharmacy Note by Mamadou Louis Vancomycin dosed at 1gm iv q12h. Trough with 16:00 dose on 05-27. Initialized on 05/25/24 15:47 - END OF NOTE 05/25/24 11:12 Case Management Note by Savi Worthington S/W [facility]- THEY HAD DROPPED PATIENT D/T BEING OUT OF SERVICING AREA. PATIENT HAS SINCE MOVED IN WITH BROTHER IN [place]. WILL SEND NEW REFERRAL- THEY WILL BE ABLE TO PICK PATIENT BACK UP. REFERRAL SENT THEY WILL NEED NOTIFIED AT TIME OF DC AT [phone]. THEY WILL NEED FAXED THE DC INSTRUCTIONS, DC MED LIST AND DC SUMMARY TO [phone] Initialized on 05/25/24 11:12 - END OF NOTE Assessment/Plan (1) Sepsis Current Visit: Yes Status: Acute Assessment & Plan: -Most likely secondary to UTI - meeting criteria on admission with tachycardia, febrile, known source of infection, elevated lactate, hypotension -2L fluid bolus given -LA now wnl -WBC downtrending 13.0<16.2 -Zosyn/azithromycin started -continue -CT abd/pelvis demonstrates bilateral enlarged kidneys with mild [id number]-drlmyeypj, no obstructing stones. right side acute pyelonephritis and bilateral perinephric stranding and retroperitoneal fluid tracking into right iliac. -blood culture pending -afebrile overnight -follow urine and blood cultures - urine cult pre-sanchez with gram - ID -supplemental oxygen with goal spo2 >92% - currently on RA 05/26: -no longer meeting criteria -multifactoral with UTI/OM to right heel -WBC now wnl -continue vanc/zosyn ## Pressure ulcer stage 3 right heel ##Osteomyelitis -chronic - did receive wound therapy as op - has not had in several months - has not followed up with podiatry -podiatry consulted - reviewed note - MRI is concerning for OM - plan for bedside debridement Tuesday -vanc/zosyn (2) Acute pyelonephritis Current Visit: Yes Status: Acute Assessment & Plan: -as demonstrate on CT- see sepsis Code(s): N10 - ACUTE PYELONEPHRITIS (3) Pneumonia Current Visit: Yes Status: Acute Assessment & Plan: -CT Chest: IMPRESSION: 1. 8 mm calcified nodule in the apical posterior segment of left upper lobe with thick fibro atelectatic bands and posterior parietal pleural thickening in left lung, Secondary to previous infection 2. No acute pathology is noted in both lungs. -Continue zosyn/azithromycin 05/25: -abx changed to vanc/zosyn - azith d/cd due to right heel OM Code(s): J18.9 - PNEUMONIA, UNSPECIFIED ORGANISM (4) Chronic indwelling Ashford catheter Current Visit: Yes Status: Acute Assessment & Plan: -Catheter changed in ED- monitor output closely - no obstruction noted on CT Code(s): Z97.8 - PRESENCE OF OTHER SPECIFIED DEVICES (5) Hypokalemia Current Visit: Yes Status: Acute Assessment & Plan: -replenish per protocol -tele 05/26: -resolved Code(s): E87.6 - HYPOKALEMIA (6) Recurrent UTI Current Visit: Yes Status: Acute Assessment & Plan: - Zosyn given prior UTIs UCx pending; BCx pending; sputum Cx ordered 05/26 _UCult with gram - ID, will follow Code(s): N39.0 - URINARY TRACT INFECTION, SITE NOT SPECIFIED (7) History of orthostatic hypotension Current Visit: Yes Status: Acute Assessment & Plan: -continue home midodrine Code(s): Z86.79 - PERSONAL HISTORY OF OTHER DISEASES OF THE CIRCULATORY SYSTEM (8) History of DVT (deep vein thrombosis) Current Visit: Yes Status: Acute Assessment & Plan: -hold eliquis until hematuria resolves 05/26: -Resume eliquis Code(s): Z86.718 - PERSONAL HISTORY OF OTHER VENOUS THROMBOSIS AND EMBOLISM (9) Hyponatremia Current Visit: Yes Status: Acute Assessment & Plan: -improving with IVF - continue to monitor 05/26: -resolved Code(s): E87.1 - HYPO-OSMOLALITY AND HYPONATREMIA (10) Paraplegia Current Visit: Yes Status: Acute Assessment & Plan: -noted adds complexity - chronic indwelling catheter Code(s): G82.20 - PARAPLEGIA, UNSPECIFIED (2) Acute pyelonephritis Current Visit: Yes Status: Acute Code(s): N10 - ACUTE PYELONEPHRITIS (3) Pneumonia Current Visit: Yes Status: Acute Code(s): J18.9 - PNEUMONIA, UNSPECIFIED ORGANISM (4) Osteomyelitis Current Visit: Yes Status: Acute Code(s): M86.9 - OSTEOMYELITIS, UNSPECIFIED (5) Pressure ulcer of right heel, stage 3 Current Visit: Yes Status: Acute Code(s): L89.613 - PRESSURE ULCER OF RIGHT HEEL, STAGE 3 (6) Chronic indwelling Ashford catheter Current Visit: Yes Status: Acute Code(s): Z97.8 - PRESENCE OF OTHER SPECIFIED DEVICES (7) Hypokalemia Current Visit: Yes Status: Acute Code(s): E87.6 - HYPOKALEMIA (8) Recurrent UTI Current Visit: Yes Status: Acute Code(s): N39.0 - URINARY TRACT INFECTION, SITE NOT SPECIFIED (9) History of orthostatic hypotension Current Visit: Yes Status: Acute Code(s): Z86.79 - PERSONAL HISTORY OF OTHER DISEASES OF THE CIRCULATORY SYSTEM (10) History of DVT (deep vein thrombosis) Current Visit: Yes Status: Acute Code(s): Z86.718 - PERSONAL HISTORY OF OTHER VENOUS THROMBOSIS AND EMBOLISM (11) Hyponatremia Current Visit: Yes Status: Acute Code(s): E87.1 - HYPO-OSMOLALITY AND HYPONATREMIA (12) Paraplegia Current Visit: Yes Status: Acute Code(s): G82.20 - PARAPLEGIA, UNSPECIFIED
[2024-05-26 09:14] LABS: Absolute Neutrophil Ct (ANC) 3.12 x10^3/uL (1.56-6.13); BASOPHIL % 0.6 % (0.1-1.2); Basophil (Absolute #) 0.03 x10^3/uL (0.01-0.08); Eosinophil % 6.3 % (0.7-5.8); Eosinophil (Absolute #) 0.33 x10^3/uL (0.04-0.36); Hematocrit 28.8 % (34.1-44.9); Hemoglobin 9.2 g/dL (11.2-15.7); IMMATURE GRAN # 0.02 x10^3u/L (0.001-0.031); IMMATURE GRAN % 0.4 % (0.001-0.429); Lymphocyte (Absolute #) 1.18 x10^3/uL (1.18-3.74); Lymphocytes % 22.6 % (19.3-51.7); Mean Cell Volume 88.9 fL (79.4-94.8); Mean Corpuscular Hemoglobin 28.4 pg (25.6-32.2); Mean Corpuscular Hgb Concent. 31.9 g/dL (32.2-35.5); Monocyte (Absolute #) 0.53 x10^3/uL (0.24-0.86); Monocytes % 10.2 % (4.7-12.5); Neutrophil % 59.9 % (34.0-71.1); Platelet Count 132 x10^3/uL (182-369); Red Blood Count 3.24 x10^6/uL (3.93-5.22); Red Cell Distribution Width 14.5 % (11.7-14.4); White Blood Count 5.2 x10^3/uL (3.98-10.04)
[2024-05-26 09:36] LABS: ALBUMIN 3.1 g/dL (3.5-5.0); ANION GAP 12.7 MEQ/L (5-15); BILIRUBIN,TOTAL 0.5 mg/dL (0.2-1.3); Calcium 8.8 mg/dL (8.4-10.2); Creatinine 1 0.55 mg/dL (0.52-1.04); EST GLOMERULAR FILTRATION RATE 129.6 ML/MIN; Potassium 3.9 mmol/L (3.5-5.1); Total Protein 6.3 g/dL (6.3-8.2)
--- NOTE | 2024-05-26 10:10 | XRAY ---
CLINICAL HISTORY: foot pain COMPARISON: None. TECHNIQUE: X-ray of left foot was obtained in AP, oblique and lateral views. FINDINGS: Diffuse osteopenia. Subtle cortical breach and overlying periosteal response on the medial aspect in distal shaft of tibia possibly healing fracture. Linear lucency in medullary cavity in distal tibia. Os peroneum seen. Rest of visualised bones appear normal in outline. Normal metatarsophalangeal and interphalangeal joint spaces. Articular margins are intact. Soft tissues appear unremarkable. IMPRESSION: 1. Diffuse osteopenia. 2. Subtle cortical breach and overlying periosteal response on the medial aspect in distal shaft of tibia possibly healing fracture. DISCLAIMER:A subtle bone abnormality or fracture may not be readily apparent on x-rays, thus clinical correlation and further imaging including follow up CT, MRI, or follow up x-rays are advised as needed. Electronically Signed by: Mariya Dimas MD. (05/26/2024 10:05:42 EDT)
[2024-05-26] MEDS: Oxycontin 10 MG ER PO SCH (11:07)
[2024-05-26] MEDS: ELIQUIS 2.5 MG TABLET PO SCH (12:42)
[2024-05-26] MEDS: DUONEB 0.5-3 MG/3 ml Neb IH PRN (19:00)
[2024-05-26] MEDS ORDERED: NON-FORMULARY ITEM (Apixaban [Eliquis] 5 MG Tablet) PO SCH (22:00)
--- NOTE | 2024-05-27 05:05 | PCM.NOTE ---
Date and Time: 05/27/24 0505 Subjective Assessment: Ms. Arzola is a 28 year old female with a pmhx of paraplegia with an indwelling catheter, recurrent UTIs/kidney stones, DVT, orthostatic hypotension (on midodrine) who presented to ED 05/24/24 with complaints of a 4-5 day history of fever (Tmax 103), cough, left sided abdominal/flank pain, nausea, vomiting, and hematuria. Patient septic on presentation with a temp of 103.9, tachycardic with HR at 115, and hypotensive with BP of 79/53. Ct of the abdomen/pelvis demonstrates bilateral enlarged kidneys with mild [id number]-mnlutfepq, no obstructing stones. right side acute pyelonephritis and bilateral perinephric stranding and retroperitoneal fluid tracking into right iliac. Lab findings remarkable for leukocytosis with WBC at 19.1, normocytic anemia with hemoglobin at 10.8, thrombocytopenia with plts at 163, hyponatremia with sodium at 128, and UA suspicious for infection. Patient given fluid bolus and Rocephin in ED. CT chest showing no acute findings. Admission for sepsis secondary to pyelonephritis/hyponatremia. Plan for continued zosyn. Right heel ulcer on exam - podiatry consulted - MRI concerning for OM. Podiatry recommendations - obtain bone biopsy and bone culture and will likely treat conservatively with bone debridement. This can be performed at bedside. 05/25/24: Met with patient bedside. Feeling much better today. Endorses continued left flank pain but this has improved some. [place] cath secured - no hematuria noted- good output with clear/yellow urine. Afebrile overnight. Urine culture with gram negative ID. Plan to continue Zosyn - follow culture. Denies fever,cough, sob, cp, abdominal pain, dizziness, N/V/D. 05/26: Patient is feeling better today. Endorses left foot/ankle pain and mild left flank pain. Patient states she is on oxy ER at home. Will continue. Discussed MRI findings concerning for OM - per podiatry notes, plan for possible bone debridement. WBC now WNL. Continue Vanc/Zosyn for now. 05/27: Met with patient bedside. No overnight events noted. Endorses some constipation - requesting enema this morning. Cough with white/yellow sputum. Pain is contro lled with oxy ER. Wound culture showing ecoli/and proteus mirabilis/ucult with ecoli. All with sensitivities to zosyn - can dc vanc. Blood culture with NGTD. <CARROLL CATALAN - Last Filed: 05/27/24 10:40> Date and Time: 05/27/242139 <TEMO BIGGS - Last Filed: 05/27/24 21:40> - Review of Systems Constitutional: No Symptoms Eyes: No Symptoms Ears, Nose, & Throat: No Symptoms Respiratory: Cough Cardiac: No Symptoms Abdominal/Gastrointestinal: Constipation Genitourinary Symptoms: Flank Pain (left ) Musculoskeletal: No Symptoms Skin: Other (RLE pressure wound stage 3 ) Neurological: Paralysis Psychological: No Symptoms Endocrine: No Symptoms Hematologic/Lymphatic: No Symptoms Immunological/Allergic: No Symptoms <CARROLL CATALAN - Last Filed: 05/27/24 10:40> Objective Exam General Appearance: no apparent distress Neurologic Exam: alert, oriented x 3, cooperative Skin Exam: pale, other (right heel pressure ulcer stage 3) Wound Assessment: Skin/Wound Assessment Wound/Incision Assessment Start: 05/24/24 18:30 Text: Status: Active Freq: Q6H Protocol: Document 05/27/24 02:00 MP (Rec: 05/27/24 02:34 MP [id number]) Wound/Incision Assessment Right Anterior Foot Wound Assessment Shift Assessment Wound Type Abrasion Wound Stage Non Pressure Wound Comment wrapped per podiatry Right Posterior Heel Wound Assessment Shift Assessment Wound Type Pressure Ulcer Comment wrapped per podiatry Wound Photo Photo Taken No Comment: photo taken at admission Eye Exam: PERRL Ears, Nose, Throat Exam: normal ENT inspection Neck Exam: normal inspection Respiratory Exam: normal breath sounds, lungs clear Cardiovascular Exam: regular rate/rhythm, normal heart sounds Gastrointestinal/Abdomen Exam: soft, normal bowel sounds Extremity Exam: paralysis Back Exam: normal inspection Pelvic Exam: deferred Rectal Exam: deferred <CARROLL CATALAN - Last Filed: 05/27/24 10:40> Wound Assessment: Skin/Wound Assessment Wound/Incision Assessment Start: 05/24/24 18:30 Text: Status: Active Freq: Q6H Protocol: Document 05/27/24 20:00 DALE (Rec: 05/27/24 20:22 DALE [id number]) Wound/Incision Assessment Right Anterior Foot Wound Assessment Shift Assessment Wound Type Abrasion Wound Stage Non Pressure Wound Dressing Status Dry & Intact Drainage Amount None Drainage Odor None/Absent Comment Dressing C/D/I; Podiatry to manage dressing care. Right Posterior Heel Wound Assessment Shift Assessment Wound Type Pressure Ulcer Dressing Status Dry & Intact Drainage Amount None Drainage Odor None/Absent Comment Dressing C/D/I; Podiatry to manage dressing care. Wound Photo Photo Taken No Comment: See paper chart for photos on admission. <TEMO BIGGS - Last Filed: 05/27/24 21:40> Objective Data Vital Signs: Vital Signs - 24 hr Temp Pulse Resp BP Pulse Ox 05/27/24 04:00 97.3 F 90 18 94/55 97 05/26/24 23:28 98.9 F 75 15 99/51 98 05/26/24 20:00 97.1 F 95 H 16 117/61 96 05/26/24 19:00 65 16 97 05/26/24 16:00 96.9 F 77 16 152/77 98 05/26/24 11:19 97.3 F 75 19 121/84 100 05/26/24 10:59 77 16 95 05/26/24 07:14 97.1 F 73 20 113/72 96 Pain Assessment - Last Documented Pain Intensity 4 Pain Scale Used 0-10 Pain Scale Intake and Output: Intake & Output 05/24/24 05/25/24 05/26/24 05/27/24 11:59 11:59 11:59 11:59 Intake Total 120 3949 3659 Output Total 1600 9100 3100 Balance -1480 -5151 559 Weight 73.1 kg Lab Results: Lab Results-Last 24 Hours 05/26/24 05/26/24 Range/Units 09:14 09:14 WBC 5.2 (3.98-10.04) x10^3/uL RBC 3.24 L (3.93-5.22) x10^6/uL Hgb 9.2 L (11.2-15.7) g/dL Hct 28.8 L (34.1-44.9) % MCV 88.9 (79.4-94.8) fL MCH 28.4 (25.6-32.2) pg MCHC 31.9 L (32.2-35.5) g/dL RDW 14.5 H (11.7-14.4) % Plt Count 132 L (182-369) x10^3/uL MPV 10.0 (9.4-12.3) fL Gran % 59.9 (34.0-71.1) % Immature Gran % (Auto) 0.4 (0.001-0.429) % Nucleat RBC Rel Count 0.0 (0.00-0.2) % Eos # (Auto) 0.33 (0.04-0.36) x10^3/uL Immature Gran # (Auto) 0.02 (0.001-0.031) x10^3u/L Absolute Lymphs (auto) 1.18 (1.18-3.74) x10^3/uL Absolute Monos (auto) 0.53 (0.24-0.86) x10^3/uL Absolute Nucleated RBC 0.00 (0.00-0.012) x10^3u/L Lymphocytes % 22.6 (19.3-51.7) % Monocytes % 10.2 (4.7-12.5) % Eosinophils % 6.3 H (0.7-5.8) % Basophils % 0.6 (0.1-1.2) % Absolute Granulocytes 3.12 (1.56-6.13) x10^3/uL Basophils # 0.03 (0.01-0.08) x10^3/uL Sodium 137 (135-145) mmol/L Potassium 3.9 (3.5-5.1) mmol/L Chloride 103 (98-107) mmol/L Carbon Dioxide 25 (22-30) mmol/L Anion Gap 12.7 (5-15) MEQ/L BUN 4 L (7-17) mg/dL Creatinine 0.55 (0.52-1.04) mg/dL Estimated GFR 129.6 ML/MIN Glucose 125 H (74-106) mg/dL Calcium 8.8 D (8.4-10.2) mg/dL Total Bilirubin 0.50 (0.2-1.3) mg/dL AST 25 (14-36) U/L ALT 28 (0-35) U/L Alkaline Phosphatase 63 (38-126) U/L Serum Total Protein 6.3 (6.3-8.2) g/dL Albumin 3.1 L (3.5-5.0) g/dL Radiology Exams: Radiology Procedures Category Date Time Status ARTERIAL UNILAT/LTD LOWER EXT [US] Stat Exams 05/25/24 11:52 Completed FOOT (MINIMUM 3 VIEWS) Stat Exams 05/25/24 11:52 Completed FOOT (MINIMUM 3 VIEWS) Stat Exams 05/26/24 08:50 Completed MRI LOWER EXT WITH CONTRAST [MRI] Routine Exams 05/25/24 11:49 Completed <CARROLL CATALAN - Last Filed: 05/27/24 10:40> Vital Signs: Vital Signs - 24 hr Temp Pulse Resp BP Pulse Ox 05/27/24 20:32 86 16 99 05/27/24 20:00 97.3 F 70 16 139/74 97 05/27/24 16:00 97.6 F 86 14 133/91 99 05/27/24 11:52 97.4 F 80 15 99/58 99 05/27/24 07:56 97.6 F 87 17 149/71 96 05/27/24 04:00 97.3 F 90 18 94/55 97 05/26/24 23:28 98.9 F 75 15 99/51 98 Pain Assessment - Last Documented Pain Intensity 4 Pain Scale Used 0-10 Pain Scale Intake and Output: Intake & Output 05/25/24 05/26/24 05/27/24 05/28/24 11:59 11:59 11:59 11:59 Intake Total 120 3949 3899 240 Output Total 1600 9100 4900 1400 Balance -8129 -8874 -1001 -1160 Weight 73.1 kg Lab Results: Lab Results-Last 24 Hours 05/27/24 05/27/24 05/27/24 Range/Units 05:30 05:30 15:00 WBC 4.6 (3.98-10.04) x10^3/uL RBC 3.13 L (3.93-5.22) x10^6/uL Hgb 8.7 L (11.2-15.7) g/dL Hct 27.2 L (34.1-44.9) % MCV 86.9 (79.4-94.8) fL MCH 27.8 (25.6-32.2) pg MCHC 32.0 L (32.2-35.5) g/dL RDW 14.4 (11.7-14.4) % Plt Count 162 L (182-369) x10^3/uL MPV 10.2 (9.4-12.3) fL Gran % 51.0 (34.0-71.1) % Immature Gran % (Auto) 0.2 (0.001-0.429) % Nucleat RBC Rel Count 0.0 (0.00-0.2) % Eos # (Auto) 0.32 (0.04-0.36) x10^3/uL Immature Gran # (Auto) 0.01 (0.001-0.031) x10^3u/L Absolute Lymphs (auto) 1.38 (1.18-3.74) x10^3/uL Absolute Monos (auto) 0.50 (0.24-0.86) x10^3/uL Absolute Nucleated RBC 0.00 (0.00-0.012) x10^3u/L Lymphocytes % 30.0 (19.3-51.7) % Monocytes % 10.9 (4.7-12.5) % Eosinophils % 7.0 H (0.7-5.8) % Basophils % 0.9 (0.1-1.2) % Absolute Granulocytes 2.35 (1.56-6.13) x10^3/uL Basophils # 0.04 (0.01-0.08) x10^3/uL Sodium 133 L (135-145) mmol/L Potassium 3.7 (3.5-5.1) mmol/L Chloride 99 (98-107) mmol/L Carbon Dioxide 28 (22-30) mmol/L Anion Gap 10.3 (5-15) MEQ/L BUN 4 L (7-17) mg/dL Creatinine 0.50 L (0.52-1.04) mg/dL Estimated GFR 132.6 ML/MIN Glucose 92 (74-106) mg/dL Calcium 8.5 (8.4-10.2) mg/dL Total Bilirubin 0.30 (0.2-1.3) mg/dL AST 23 (14-36) U/L ALT 22 (0-35) U/L Alkaline Phosphatase 61 (38-126) U/L Serum Total Protein 6.1 L (6.3-8.2) g/dL Albumin 3.0 L (3.5-5.0) g/dL Vancomycin Trough 9.56 L (10-20) ug/mL Radiology Exams: Radiology Procedures Category Date Time Status FOOT (MINIMUM 3 VIEWS) Stat Exams 05/26/24 08:50 Completed <TEMO BIGGS - Last Filed: 05/27/24 21:40> Assessment/Plan (1) Sepsis Current Visit: Yes Status: Acute Assessment & Plan: -Most likely secondary to UTI - meeting criteria on admission with tachycardia, febrile, known source of infection, elevated lactate, hypotension -2L fluid bolus given -LA now wnl -WBC downtrending 13.0<16.2 -Zosyn/azithromycin started -continue -CT abd/pelvis demonstrates bilateral enlarged kidneys with mild twevn-zagftdd-ycllybakk, no obstructing stones. right side acute pyelonephritis and bilateral perinephric stranding and retroperitoneal fluid tracking into right iliac. -blood culture pending -afebrile overnight -follow urine and blood cultures - urine cult pre-sanchez with gram - ID -supplemental oxygen with goal spo2 >92% - currently on 05/26: -no longer meeting criteria -multifactoral with UTI/OM to right heel -WBC now wnl -continue vanc/zosyn 05/27: -wound cultures with proteus miribilis/ecoli -ucult with ecoli -D/c vanc- continue zosyn ## Pressure ulcer stage 3 right heel ##Osteomyelitis -chronic - did receive wound therapy as op - has not had in several months - has not followed up with podiatry -podiatry consulted - reviewed note - MRI is concerning for OM - plan for bedside debridement Tuesday -vanc/zosyn 05/27: wound cultures with proteus miribilis/ecoli -continue zosyn - dc vanc (2) Acute pyelonephritis Current Visit: Yes Status: Acute Assessment & Plan: -as demonstrate on CT- see sepsis Code(s): N10 - ACUTE PYELONEPHRITIS (3) Pneumonia Current Visit: Yes Status: Acute Assessment & Plan: -CT Chest: IMPRESSION: 1. 8 mm calcified nodule in the apical posterior segment of left upper lobe with thick fibro atelectatic bands and posterior parietal pleural thickening in left lung, Secondary to previous infection 2. No acute pathology is noted in both lungs. -Continue zosyn/azithromycin 05/25: -abx changed to vanc/zosyn - azith d/cd due to right heel OM Code(s): J18.9 - PNEUMONIA, UNSPECIFIED ORGANISM (4) Chronic indwelling [place] catheter Current Visit: Yes Status: Acute Assessment & Plan: -Catheter changed in ED- monitor output closely - no obstruction noted on CT Code(s): Z97.8 - PRESENCE OF OTHER SPECIFIED DEVICES (5) Hypokalemia Current Visit: Yes Status: Acute Assessment & Plan: -replenish per protocol -tele 05/26: -resolved Code(s): E87.6 - HYPOKALEMIA (6) Recurrent UTI Current Visit: Yes Status: Acute Assessment & Plan: - Zosyn given prior UTIs UCx pending; BCx pending; sputum Cx ordered 05/26 _UCult with gram - ID, will follow Code(s): N39.0 - URINARY TRACT INFECTION, SITE NOT SPECIFIED (7) History of orthostatic hypotension Current Visit: Yes Status: Acute Assessment & Plan: -continue home midodrine Code(s): Z86.79 - PERSONAL HISTORY OF OTHER DISEASES OF THE CIRCULATORY SYSTEM (8) History of DVT (deep vein thrombosis) Current Visit: Yes Status: Acute Assessment & Plan: -hold eliquis until hematuria resolves 05/26: -Resume eliquis Code(s): Z86.718 - PERSONAL HISTORY OF OTHER VENOUS THROMBOSIS AND EMBOLISM (9) Hyponatremia Current Visit: Yes Status: Acute Assessment & Plan: -improving with IVF - continue to monitor 05/26: -resolved Code(s): E87.1 - HYPO-OSMOLALITY AND HYPONATREMIA (10) Paraplegia Current Visit: Yes Status: Acute Assessment & Plan: -noted adds complexity - chronic indwelling catheter Code(s): G82.20 - PARAPLEGIA, UNSPECIFIED Constipation -patient requesting enema - will order (2) Acute pyelonephritis Current Visit: Yes Status: Acute Code(s): N10 - ACUTE PYELONEPHRITIS (3) Pneumonia Current Visit: Yes Status: Acute Code(s): J18.9 - PNEUMONIA, UNSPECIFIED ORGANISM (4) Osteomyelitis Current Visit: Yes Status: Acute Code(s): M86.9 - OSTEOMYELITIS, UNSPECIFIED (5) Pressure ulcer of right heel, stage 3 Current Visit: Yes Status: Acute Code(s): L89.613 - PRESSURE ULCER OF RIGHT HEEL, STAGE 3 (6) Chronic indwelling [place] catheter Current Visit: Yes Status: Acute Code(s): Z97.8 - PRESENCE OF OTHER SPECIFIED DEVICES (7) Hypokalemia Current Visit: Yes Status: Acute Code(s): E87.6 - HYPOKALEMIA (8) Recurrent UTI Current Visit: Yes Status: Acute Code(s): N39.0 - URINARY TRACT INFECTION, SITE NOT SPECIFIED (9) History of orthostatic hypotension Current Visit: Yes Status: Acute Code(s): Z86.79 - PERSONAL HISTORY OF OTHER DISEASES OF THE CIRCULATORY SYSTEM (10) History of DVT (deep vein thrombosis) Current Visit: Yes Status: Acute Code(s): Z86.718 - PERSONAL HISTORY OF OTHER VENOUS THROMBOSIS AND EMBOLISM (11) Hyponatremia Current Visit: Yes Status: Acute Code(s): E87.1 - HYPO-OSMOLALITY AND HYPONATREMIA (12) Paraplegia Current Visit: Yes Status: Acute Code(s): G82.20 - PARAPLEGIA, UNSPECIFIED <CARROLL CATALAN - Last Filed: 05/27/24 10:40> EDUIN Encounter - EDUIN Encounter Attestation EDUIN Encounter Attestation: "IhbrendenpersonallysHIRAL Pal andhavediscussed pertinent aspects of their care with Carroll Gutierrez agree with the history, physical exam (any modifications based on my personal exam will be noted below), assessment, and plan as outlined in original note. Please see immediately below for my summary of findings and additional assessment and plan along with any meaningful corrections/explanations to the Subjective/Objective portions of the EDUIN note will be noted." My portion of the encounter took place via telemedicine. -Sepsis due to UTI improving. Also has a right heel pressure ulcer with OM, and will be undergoing bedside debridement by podiatry. <TEMO BIGGS - Last Filed: 05/27/24 21:40>
[2024-05-27 06:04] LABS: Absolute Neutrophil Ct (ANC) 2.35 x10^3/uL (1.56-6.13); BASOPHIL % 0.9 % (0.1-1.2); Basophil (Absolute #) 0.04 x10^3/uL (0.01-0.08); Eosinophil (Absolute #) 0.32 x10^3/uL (0.04-0.36); Hematocrit 27.2 % (34.1-44.9); Hemoglobin 8.7 g/dL (11.2-15.7); IMMATURE GRAN # 0.01 x10^3u/L (0.001-0.031); IMMATURE GRAN % 0.2 % (0.001-0.429); Lymphocyte (Absolute #) 1.38 x10^3/uL (1.18-3.74); Mean Cell Volume 86.9 fL (79.4-94.8); Mean Corpuscular Hemoglobin 27.8 pg (25.6-32.2); Mean Platelet Volume 10.2 fL (9.4-12.3); Monocytes % 10.9 % (4.7-12.5); Platelet Count 162 x10^3/uL (182-369); Red Blood Count 3.13 x10^6/uL (3.93-5.22); Red Cell Distribution Width 14.4 % (11.7-14.4); White Blood Count 4.6 x10^3/uL (3.98-10.04)
[2024-05-27 06:24] LABS: ANION GAP 10.3 MEQ/L (5-15); BILIRUBIN,TOTAL 0.3 mg/dL (0.2-1.3); Calcium 8.5 mg/dL (8.4-10.2); Creatinine 1 0.5 mg/dL (0.52-1.04); EST GLOMERULAR FILTRATION RATE 132.6 ML/MIN; Potassium 3.7 mmol/L (3.5-5.1); Total Protein 6.1 g/dL (6.3-8.2)
[2024-05-27] MEDS: TYLENOL EXTRA STRENGTH 500 MG PO PRN (18:05)
[2024-05-27] MEDS: TROUGH DRUG LEVELS IJ ONE (18:06)
[2024-05-28 04:59] LABS: Absolute Neutrophil Ct (ANC) 1.98 x10^3/uL (1.56-6.13); BASOPHIL % 0.8 % (0.1-1.2); Basophil (Absolute #) 0.04 x10^3/uL (0.01-0.08); Eosinophil % 7.5 % (0.7-5.8); Eosinophil (Absolute #) 0.36 x10^3/uL (0.04-0.36); Hematocrit 29.1 % (34.1-44.9); Hemoglobin 9.4 g/dL (11.2-15.7); IMMATURE GRAN # 0.02 x10^3u/L (0.001-0.031); IMMATURE GRAN % 0.4 % (0.001-0.429); Lymphocyte (Absolute #) 2.01 x10^3/uL (1.18-3.74); Lymphocytes % 41.9 % (19.3-51.7); Mean Cell Volume 85.3 fL (79.4-94.8); Mean Corpuscular Hemoglobin 27.6 pg (25.6-32.2); Mean Corpuscular Hgb Concent. 32.3 g/dL (32.2-35.5); Mean Platelet Volume 10.5 fL (9.4-12.3); Monocyte (Absolute #) 0.39 x10^3/uL (0.24-0.86); Monocytes % 8.1 % (4.7-12.5); Neutrophil % 41.3 % (34.0-71.1); Platelet Count 216 x10^3/uL (182-369); Red Blood Count 3.41 x10^6/uL (3.93-5.22); Red Cell Distribution Width 14.2 % (11.7-14.4); White Blood Count 4.8 x10^3/uL (3.98-10.04)
[2024-05-28 05:37] LABS: ALBUMIN 3.2 g/dL (3.5-5.0); ANION GAP 10.1 MEQ/L (5-15); BILIRUBIN,TOTAL 0.4 mg/dL (0.2-1.3); Calcium 8.6 mg/dL (8.4-10.2); Creatinine 1 0.53 mg/dL (0.52-1.04); EST GLOMERULAR FILTRATION RATE 130.7 ML/MIN; Potassium 3.5 mmol/L (3.5-5.1); Total Protein 6.4 g/dL (6.3-8.2)
[2024-05-28] MEDS: Hydromorphone 1 mg/ml Injection IV ONE (07:47)
--- NOTE | 2024-05-28 12:47 | PCM.NOTE ---
Date and Time: 05/28/24 1236 Subjective Assessment: Ms. Arzola is a 28 year old female with a pmhx of paraplegia with an indwelling catheter, recurrent UTIs/kidney stones, DVT, orthostatic hypotension (on midodrine). She presented to ED 05/24/24 with complaints of a 4-5 day history of fever (Tmax 103), cough, left sided abdominal/flank pain, nausea, vomiting, and hematuria. Patient septic on presentation with a temp of 103.9, tachycardic with HR at 115, and hypotensive with BP of 79/53. Ct of the abdomen/pelvis demonstrates bilateral enlarged kidneys with mild bggow-ofngnie-lkwuflyam, no obstructing stones. right side acute pyelonephritis and bilateral perinephric stranding and retroperitoneal fluid tracking into right iliac. Lab findings remarkable for leukocytosis with WBC at 19.1, normocytic anemia with hemoglobin at 10.8, thrombocytopenia with plts at 163, hyponatremia with sodium at 128, and UA suspicious for infection. Patient given fluid bolus and Rocephin in ED. CT chest showing no acute findings. Admission for sepsis secondary to pyelonephritis/hyponatremia. Continued zosyn IP. Right heel ulcer on exam - podiatry consulted - MRI concerning for OM. Podiatry recommendations - obtain bone biopsy and bone culture and will likely treat conservatively with bone debridement. This was performed at bedside today. Pt tolerated well with Di laudid gave IV at time of procedure. BX x2 negative. Urine + e-coli. right heel + e-coli and proteus mirabilis. Continue Zosyn per sensitivity results. Pt had a BM yesterday but still feels constipated. Continue miralax and colace. Continue IVF. Per nursing pt having white vaginal discharge and diflucan started. - Review of Systems Constitutional: No Fever, No Chills Eyes: No Symptoms Ears, Nose, & Throat: No Symptoms Respiratory: No Cough, No Short Of Breath Cardiac: No Chest Pain, No Edema, No Syncope Abdominal/Gastrointestinal: Constipation, No Abdominal Pain, No Nausea, No Vomiting, No Diarrhea Genitourinary Symptoms: Vaginal Discharge (white, thick), No Dysuria Musculoskeletal: No Back Pain, No Neck Pain Skin: Skin Lesions (RLE wrapped ), No Rash Neurological: No Dizziness, No Focal Weakness, No Sensory Changes Psychological: No Symptoms Endocrine: No Symptoms Hematologic/Lymphatic: No Symptoms Immunological/Allergic: No Symptoms Objective Exam General Appearance: no apparent distress, alert Neurologic Exam: alert, oriented x 3, cooperative, normal mood/affect, nml cerebellar function, sensation nml, No motor deficits Skin Exam: normal color, warm, dry Wound Assessment: Skin/Wound Assessment Wound/Incision Assessment Start: 05/24/24 18:30 Text: Status: Active Freq: Q6H Protocol: Document 05/28/24 08:00 RF (Rec: 05/28/24 09:13 RF [id number]) Wound/Incision Assessment Right Anterior Foot Wound Assessment Shift Assessment Wound Type Abrasion Wound Stage Non Pressure Wound Dressing Status Dry & Intact Drainage Amount None Drainage Odor None/Absent Comment Dressing C/D/I; Podiatry to manage dressing care-REMAINS TRUE Right Posterior Heel Wound Assessment Shift Assessment Wound Type Pressure Ulcer Dressing Status Dry & Intact Drainage Amount None Drainage Odor None/Absent Comment Dressing remains C/D/I; Podiatry to manage dressing care-REMAINS TRUE Wound Photo Photo Taken No Comment: See paper chart for photos on admission. Eye Exam: PERRL, EOMI, eyes nml inspection Ears, Nose, Throat Exam: normal ENT inspection, pharynx normal, moist mucous membranes Neck Exam: normal inspection, non-tender, supple, full range of motion Respiratory Exam: normal breath sounds, lungs clear, No respiratory distress Cardiovascular Exam: regular rate/rhythm, normal heart sounds Gastrointestinal/Abdomen Exam: soft, No tenderness, No mass Extremity Exam: normal inspection, normal range of motion, tenderness (RLE wrapped and bleeding from procedure today. Dressing reinforced by nursing. Leg elevated on pillow.) Back Exam: normal inspection, normal range of motion, No CVA tenderness, No vertebral tenderness Pelvic Exam: deferred Rectal Exam: deferred Objective Data Vital Signs: Vital Signs - 24 hr Temp Pulse Resp BP Pulse Ox 05/28/24 11:32 97.7 F 77 16 159/104 95 05/28/24 07:19 76 18 98 05/28/24 07:17 97.7 F 78 16 155/96 97 05/28/24 04:00 97.6 F 71 17 145/83 97 05/28/24 00:00 96.8 F 72 16 139/96 98 05/27/24 20:32 86 16 99 05/27/24 20:00 97.3 F 70 16 139/74 97 05/27/24 16:00 97.6 F 86 14 133/91 99 Pain Assessment - Last Documented Pain Intensity 5 Pain Scale Used 0-10 Pain Scale Intake and Output: Intake & Output 05/26/24 05/27/24 05/28/24 05/29/24 11:59 11:59 11:59 11:59 Intake Total 3942 2043 9068 Output Total 9126 3549 9213 [id number] [phone] Lab Results: Lab Results-Last 24 Hours 05/27/24 05/28/24 05/28/24 Range/Units 15:00 04:45 04:45 WBC 4.8 (3.98-10.04) x10^3/uL RBC 3.41 L (3.93-5.22) x10^6/uL Hgb 9.4 L (11.2-15.7) g/dL Hct 29.1 L (34.1-44.9) % MCV 85.3 (79.4-94.8) fL MCH 27.6 (25.6-32.2) pg MCHC 32.3 (32.2-35.5) g/dL RDW 14.2 (11.7-14.4) % Plt Count 216 (182-369) x10^3/uL MPV 10.5 (9.4-12.3) fL Gran % 41.3 (34.0-71.1) % Immature Gran % (Auto) 0.4 (0.001-0.429) % Nucleat RBC Rel Count 0.0 (0.00-0.2) % Eos # (Auto) 0.36 (0.04-0.36) x10^3/uL Immature Gran # (Auto) 0.02 (0.001-0.031) x10^3u/L Absolute Lymphs (auto) 2.01 (1.18-3.74) x10^3/uL Absolute Monos (auto) 0.39 (0.24-0.86) x10^3/uL Absolute Nucleated RBC 0.00 (0.00-0.012) x10^3u/L Lymphocytes % 41.9 (19.3-51.7) % Monocytes % 8.1 (4.7-12.5) % Eosinophils % 7.5 H (0.7-5.8) % Basophils % 0.8 (0.1-1.2) % Absolute Granulocytes 1.98 (1.56-6.13) x10^3/uL Basophils # 0.04 (0.01-0.08) x10^3/uL Sodium 137 (135-145) mmol/L Potassium 3.5 (3.5-5.1) mmol/L Chloride 100 (98-107) mmol/L Carbon Dioxide 31 H (22-30) mmol/L Anion Gap 10.1 (5-15) MEQ/L BUN 2 L (7-17) mg/dL Creatinine 0.53 (0.52-1.04) mg/dL Estimated GFR 130.7 ML/MIN Glucose 88 (74-106) mg/dL Calcium 8.6 (8.4-10.2) mg/dL Total Bilirubin 0.40 (0.2-1.3) mg/dL AST 24 (14-36) U/L ALT 21 (0-35) U/L Alkaline Phosphatase 66 (38-126) U/L Serum Total Protein 6.4 (6.3-8.2) g/dL Albumin 3.2 L (3.5-5.0) g/dL Vancomycin Trough 9.56 L (10-20) ug/mL Multi-Disciplinary Progress Notes: Multi-Disciplinary Progress Notes 05/28/24 11:10 Case Management Note by Savi Worthington S/W PATIENT -SHE LIVES WITH HER BROTHER. SHE HAS FAMILY AND AIDS THAT ASSIST HER WITH ADLS. REFERRAL WAS SENT TO [facility] FOR HHC. SHE DENIES ANY OTHER NEEDS. SHE PLANS TO RETURN HOME TO HER PLF AT TIME OF DC Initialized on 05/28/24 11:10 - END OF NOTE Assessment/Plan (1) Sepsis Current Visit: Yes Status: Acute Assessment & Plan: -Most likely secondary to UTI - meeting criteria on admission with tachycardia, febrile, known source of infection, elevated lactate, hypotension -2L fluid bolus given on admission -LA now wnl -WBC downtrending 13.0<16.2 -Zosyn/azithromycin started -continue -CT abd/pelvis demonstrates bilateral enlarged kidneys with mild ipnlh-nyckcin-wbsuzyrlm, no obstructing stones. right side acute pyelonephritis and bilateral perinephric stranding and retroperitoneal fluid tracking into ri ght iliac. -blood culture pending -afebrile overnight -follow urine and blood cultures - urine cult pre-sanchez with gram - ID -supplemental oxygen with goal spo2 >92% - currently on RA 05/26: -no longer meeting criteria -multifactoral with UTI/OM to right heel -WBC now wnl -continue vanc/zosyn 05/27: -wound cultures with proteus miribilis/ecoli -ucult with ecoli -D/c vanc- continue zosyn (2) Pressure ulcer of right heel, stage 3 Current Visit: Yes Status: Acute Assessment & Plan: -chronic - did receive wound therapy as op - has not had in several months - has not followed up with podiatry -podiatry consulted - reviewed note - MRI is concerning for OM - plan for bedside debridement Tuesday -vanc/zosyn 05/27-wound cultures with proteus miribilis/ecoli -continue zosyn - dc vanc 05/28- bedside debridement today with podiatry Code(s): L89.613 - PRESSURE ULCER OF RIGHT HEEL, STAGE 3 (3) Vaginal yeast infection Current Visit: Yes Status: Acute Assessment & Plan: - started Diflucan PO Code(s): B37.31 - ACUTE CANDIDIASIS OF VULVA AND VAGINA (4) Acute pyelonephritis Current Visit: Yes Status: Acute Assessment & Plan: -as demonstrate on CT- see sepsis Code(s): N10 - ACUTE PYELONEPHRITIS (5) Chronic indwelling Martinez catheter Current Visit: Yes Status: Chronic Assessment & Plan: -Catheter changed in ED- monitor output closely - no obstruction noted on CT Code(s): Z97.8 - PRESENCE OF OTHER SPECIFIED DEVICES (6) History of DVT (deep vein thrombosis) Current Visit: Yes Status: Acute Assessment & Plan: 05/26 Resumed eliquis Code(s): Z86.718 - PERSONAL HISTORY OF OTHER VENOUS THROMBOSIS AND EMBOLISM (7) History of orthostatic hypotension Current Visit: Yes Status: Acute Assessment & Plan: -continue home midodrine - med held this AM since BP somewhat elevated Code(s): Z86.79 - PERSONAL HISTORY OF OTHER DISEASES OF THE CIRCULATORY SYSTEM (8) Osteomyelitis Current Visit: Yes Status: Acute Assessment & Plan: 05/27:wound cultures with proteus miribilis/ecoli -continue zosyn - dc vanc 05/28: foot debridement this AM Code(s): M86.9 - OSTEOMYELITIS, UNSPECIFIED (9) Paraplegia Current Visit: Yes Status: Chronic Assessment & Plan: -noted adds complexity - chronic indwelling catheter Code(s): G82.20 - PARAPLEGIA, UNSPECIFIED (10) Pneumonia Current Visit: Yes Status: Acute Assessment & Plan: -CT Chest: IMPRESSION: 1. 8 mm calcified nodule in the apical posterior segment of left upper lobe with thick fibro atelectatic bands and posterior parietal pleural thickening in left lung, Secondary to previous infection 2. No acute pathology is noted in both lungs. -Continue zosyn/azithromycin 05/25:-abx changed to vanc/zosyn - azith d/cd due to right heel OM 05/27- Vancomycin stopped 05/28- Continue Zosyn - RA 95% Code(s): J18.9 - PNEUMONIA, UNSPECIFIED ORGANISM (11) Recurrent UTI Current Visit: Yes Status: Acute Assessment & Plan: - Complicated as has chronic indwelling martinez - has chronic UTI's - Continue Zosyn IV - UC + e-coli Code(s): N39.0 - URINARY TRACT INFECTION, SITE NOT SPECIFIED (12) Hypokalemia Current Visit: Yes Status: Resolved Assessment & Plan: - resolved Code(s): E87.6 - HYPOKALEMIA (13) Hyponatremia Current Visit: Yes Status: Resolved Assessment & Plan: - resolved VTE: Eliquis PPI: Protionix Next of KIN: Jennifer Ulloa [phone] D/C plan: per podiatry Code status: Full Code(s): E87.1 - HYPO-OSMOLALITY AND HYPONATREMIA
[2024-05-28] MEDS: Diflucan 100 MG PO SCH (13:18)
[2024-05-29 05:10] LABS: Hematocrit 29.1 % (34.1-44.9); Hemoglobin 9.3 g/dL (11.2-15.7); Mean Cell Volume 86.9 fL (79.4-94.8); Mean Corpuscular Hemoglobin 27.8 pg (25.6-32.2); Platelet Count 224 x10^3/uL (182-369); Red Blood Count 3.35 x10^6/uL (3.93-5.22); Red Cell Distribution Width 14.4 % (11.7-14.4); White Blood Count 4.3 x10^3/uL (3.98-10.04)
[2024-05-29 05:39] LABS: ALBUMIN 3.2 g/dL (3.5-5.0); ANION GAP 9.4 MEQ/L (5-15); BILIRUBIN,TOTAL 0.4 mg/dL (0.2-1.3); Creatinine 1 0.53 mg/dL (0.52-1.04); EST GLOMERULAR FILTRATION RATE 130.7 ML/MIN; Potassium 3.6 mmol/L (3.5-5.1); Total Protein 6.5 g/dL (6.3-8.2)
[2024-05-29 05:59] LABS: Eosinophil 2 % (0.7-5.8); Lymphocytes 41 % (19.3-51.7); Monocyte 2 % (4.7-12.5); Neutrophils 55 % (34.0-71.1); Total Cells Counted 100
[2024-05-29 06:00] LABS: Platelet Estimate NORMAL (NORMAL)
--- NOTE | 2024-05-29 09:38 | PCM.NOTE ---
Date and Time: 05/29/24 0937 Subjective Assessment: 05/28/24 Ms. Arzola is a 28 year old female with a pmhx of paraplegia with an indwelling catheter, recurrent UTIs/kidney stones, DVT, orthostatic hypotension (on midodrine). She presented to ED 05/24/24 with complaints of a 4-5 day history of fever (Tmax 103), cough, left sided abdominal/flank pain, nausea, vomiting, and hematuria. Patient septic on presentation with a temp of 103.9, tachycardic with HR at 115, and hypotensive with BP of 79/53. Ct of the abdomen/pelvis demonstrates bilateral enlarged kidneys with mild ivlcj-fvlgmzf-xlvmytnrp, no obstructing stones. right side acute pyelonephritis and bilateral perinephric stranding and retroperitoneal fluid tracking into right iliac. Lab findings radha rkable for leukocytosis with WBC at 19.1, normocytic anemia with hemoglobin at 10.8, thrombocytopenia with plts at 163, hyponatremia with sodium at 128, and UA suspicious for infection. Patient given fluid bolus and Rocephin in ED. CT chest showing no acute findings. Admission for sepsis secondary to pyelonephritis/hyponatremia. Continued zosyn IP. Right heel ulcer on exam - podiatry consulted - MRI concerning for OM. Podiatry recommendations - obtain bone biopsy and bone culture and will likely treat conservatively with bone debridement. This was performed at bedside today. Pt tolerated well with Dilaudid gave IV at time of procedure. BX x2 negative. Urine + e-coli. right heel + e-coli and proteus mirabilis. Continue Zosyn per sensitivity results. Pt had a BM yesterday but still feels constipated. Continue miralax and colace. Continue IVF. Per nursing pt having white vaginal discharge and diflucan started. 05/29/24 Pt resting in bed and has no complaints. Vital signs stable HR 73, T 97.9, BP improved 134/95. N/V and flank/abdominal pain has improved. No evidence of hematuria. WBC is 4.3 today. Podiatry treated right foot wound at bedside yesterday. Right heel culture results pending. Will continue IV antibiotics. Awaiting podiatry recs for d/c plan. - Review of Systems Constitutional: No Fever, No Chills Eyes: No Symptoms Ears, Nose, & Throat: No Symptoms Respiratory: No Cough, No Short Of Breath Cardiac: No Chest Pain, No Edema, No Syncope Abdominal/Gastrointestinal: No Abdominal Pain, No Nausea, No Vomiting, No Diarrhea Genitourinary Symptoms: Vaginal Discharge, No Dysuria Musculoskeletal: Other (chronic paraplegic), No Back Pain, No Neck Pain Skin: Other (Right foot dressing ), No Rash Neurological: Paralysis, No Dizziness, No Focal Weakness, No Sensory Changes Psychological: No Symptoms Endocrine: No Symptoms Hematologic/Lymphatic: No Symptoms Immunological/Allergic: No Symptoms Objective Exam General Appearance: no apparent distress, alert Neurologic Exam: alert, oriented x 3, cooperative, normal mood/affect, nml cerebellar function, sensation nml, No motor deficits Skin Exam: normal color, warm, dry, other (RLE wrapped, toes warm and pink) Wound Assessment: Skin/Wound Assessment Wound/Incision Assessment Start: 05/24/24 18:30 Text: Status: Active Freq: Q6H Protocol: Document 05/29/24 02:00 MM (Rec: 05/29/24 02:51 MM [id number]) Wound/Incision Assessment Right Anterior Foot Wound Assessment Shift Assessment Wound Type Abrasion Wound Stage Non Pressure Wound Dressing Status Dry & Intact Drainage Amount Moderate Drainage Description Sanguineous Drainage Odor None/Absent Comment Right foot dressing remains C/ D/I- dressing changes per podiatry Right Posterior Heel Wound Assessment Shift Assessment Wound Type Pressure Ulcer Dressing Status Dry & Intact Drainage Amount Moderate Drainage Description Sanguineous Drainage Odor None/Absent Comment Right foot dressing remains C/ D/I- dressing changes per podiatry Wound Photo Photo Taken No Comment: See paper chart for photos on admission. Eye Exam: PERRL, EOMI, eyes nml inspection Ears, Nose, Throat Exam: normal ENT inspection, pharynx normal, moist mucous membranes Neck Exam: normal inspection, non-tender, supple, full range of motion Respiratory Exam: normal breath sounds, lungs clear, No respiratory distress Cardiovascular Exam: regular rate/rhythm, normal heart sounds Gastrointestinal/Abdomen Exam: soft, No tenderness, No mass Extremity Exam: normal inspection, normal range of motion, paralysis, other (Chronic paraplegic) Back Exam: normal inspection, normal range of motion, No CVA tenderness, No vertebral tenderness Pelvic Exam: deferred, vaginal discharge Rectal Exam: deferred Objective Data Vital Signs: Vital Signs - 24 hr Temp Pulse Resp BP Pulse Ox 05/29/24 07:47 97.9 F 73 16 134/95 95 05/29/24 07:18 70 16 96 05/29/24 04:00 97.1 F 75 16 167/97 96 05/28/24 23:08 97.2 F 89 16 136/89 92 L 05/28/24 19:40 85 16 95 05/28/24 18:58 80/50 05/28/24 18:57 96.2 F 90 16 73/38 95 05/28/24 16:00 97.8 F 79 16 142/71 96 05/28/24 11:32 97.7 F 77 16 159/104 95 Pain Assessment - Last Documented Pain Intensity 4 Pain Scale Used 0-10 Pain Scale Intake and Output: Intake & Output 05/26/24 05/27/24 05/28/24 05/29/24 11:59 11:59 11:59 11:59 Intake Total 3949 3899 3618 2260 Output Total 9109 4900 5129 2800 Balance -5151 -1001 -1507 -540 Weight 73.1 kg Lab Results: Lab Results-Last 24 Hours 05/29/24 05/29/24 Range/Units 05:05 05:05 WBC 4.3 (3.98-10.04) x10^3/uL RBC 3.35 L (3.93-5.22) x10^6/uL Hgb 9.3 L (11.2-15.7) g/dL Hct 29.1 L (34.1-44.9) % MCV 86.9 (79.4-94.8) fL MCH 27.8 (25.6-32.2) pg MCHC 32.0 L (32.2-35.5) g/dL RDW 14.4 (11.7-14.4) % Plt Count 224 (182-369) x10^3/uL MPV 10.0 (9.4-12.3) fL Segmented Neutrophils 55 (34.0-71.1) % Lymphocytes (Manual) 41 (19.3-51.7) % Monocytes (Manual) 2 L (4.7-12.5) % Eosinophils (Manual) 2 (0.7-5.8) % Platelet Estimate NORMAL (NORMAL) RBC Morphology NORMAL Sodium 138 (135-145) mmol/L Potassium 3.6 (3.5-5.1) mmol/L Chloride 102 (98-107) mmol/L Carbon Dioxide 29 (22-30) mmol/L Anion Gap 9.4 (5-15) MEQ/L BUN 6 L (7-17) mg/dL Creatinine 0.53 (0.52-1.04) mg/dL Estimated GFR 130.7 ML/MIN Glucose 89 (74-106) mg/dL Calcium 9.0 (8.4-10.2) mg/dL Total Bilirubin 0.40 (0.2-1.3) mg/dL AST 25 (14-36) U/L ALT 20 (0-35) U/L Alkaline Phosphatase 73 (38-126) U/L Serum Total Protein 6.5 (6.3-8.2) g/dL Albumin 3.2 L (3.5-5.0) g/dL Multi-Disciplinary Progress Notes: Multi-Disciplinary Progress Notes 05/28/24 17:04 Nutrition Note by Tyron Centeno Dressing to right lower leg changed. Applied iodine to wound, applied adaptic, sterile 4x4 gauze over wound. Applied unna boot, fan-folded to level of tibial tuberosity. Applied ABD over heel. Wrapped foot and lower leg with kerlix to same level. Wrapped with coban with mild compression to same level. Pt tolerated well. Initialized on 05/28/24 17:04 - END OF NOTE 05/28/24 11:10 Case Management Note by Savi Worthington S/W PATIENT -SHE LIVES WITH HER BROTHER. SHE HAS FAMILY AND AIDS THAT ASSIST HER WITH ADLS. REFERRAL WAS SENT TO [facility] FOR [facility]. SHE DENIES ANY OTHER NEEDS. SHE PLANS TO RETURN HOME TO HER PLF AT TIME OF DC Initialized on 05/28/24 11:10 - END OF NOTE Assessment/Plan (1) Sepsis Current Visit: Yes Status: Acute (2) Pressure ulcer of right heel, stage 3 Current Visit: Yes Status: Acute Code(s): L89.613 - PRESSURE ULCER OF RIGHT HEEL, STAGE 3 (3) Vaginal yeast infection Current Visit: Yes Status: Acute Code(s): B37.31 - ACUTE CANDIDIASIS OF VULVA AND VAGINA (4) Acute pyelonephritis Current Visit: Yes Status: Acute Code(s): N10 - ACUTE PYELONEPHRITIS (5) Chronic indwelling Martinez catheter Current Visit: Yes Status: Chronic Code(s): Z97.8 - PRESENCE OF OTHER SPECIFIED DEVICES (6) History of DVT (deep vein thrombosis) Current Visit: Yes Status: Acute Code(s): Z86.718 - PERSONAL HISTORY OF OTHER VENOUS THROMBOSIS AND EMBOLISM (7) History of orthostatic hypotension Current Visit: Yes Status: Acute Code(s): Z86.79 - PERSONAL HISTORY OF OTHER DISEASES OF THE CIRCULATORY SYSTEM (8) Osteomyelitis Current Visit: Yes Status: Acute Code(s): M86.9 - OSTEOMYELITIS, UNSPECIFIED (9) Paraplegia Current Visit: Yes Status: Chronic Code(s): G82.20 - PARAPLEGIA, UNSPECIFIED (10) Pneumonia Current Visit: Yes Status: Acute Code(s): J18.9 - PNEUMONIA, UNSPECIFIED ORGANISM (11) Recurrent UTI Current Visit: Yes Status: Acute Code(s): N39.0 - URINARY TRACT INFECTION, SITE NOT SPECIFIED (12) Hypokalemia Current Visit: Yes Status: Resolved Code(s): E87.6 - HYPOKALEMIA (13) Hyponatremia Current Visit: Yes Status: Resolved Assessment & Plan: (1) Sepsis Current Visit: Yes Status: Acute Assessment & Plan: -Most likely secondary to UTI - meeting criteria on admission with tachycardia, febrile, known source of infection, elevated lactate, hypotension -2L fluid bolus given on admission -LA now wnl -WBC downtrending 13.0<16.2 -Zosyn/azithromycin started -continue -CT abd/pelvis demonstrates bilateral enlarged kidneys with mild hvgtb-bagthiv-qbcdtccrp, no obstructing stones. right side acute pyelonephritis and bilateral perinephric stranding and retroperitoneal fluid tracking into right iliac. -blood culture pending -afebrile overnight -follow urine and blood cultures - urine cult pre-sanchez with gram - ID -supplemental oxygen with goal spo2 >92% - currently on RA 05/26: -no longer meeting criteria -multifactoral with UTI/OM to right heel -WBC now wnl -continue vanc/zosyn 05/27: -wound cultures with proteus miribilis/ecoli -ucult with ecoli -D/c vanc- continue zosyn 05/29-Sepsis resolved (2) Pressure ulcer of right heel, stage 3 Current Visit: Yes Status: Acute Assessment & Plan: -chronic - did receive wound therapy as op - has not had in several months - has not followed up with podiatry -podiatry consulted - reviewed note - MRI is concerning for OM - plan for bedside debridement Tuesday -vanc/zosyn 05/27-wound cultures with proteus miribilis/ecoli -continue zosyn - dc vanc 05/28- bedside debridement today with podiatry 05/29-Podiatry to continue to follow and treat Code(s): L89.613 - PRESSURE ULCER OF RIGHT HEEL, STAGE 3 (3) Vaginal yeast infection Current Visit: Yes Status: Acute Assessment & Plan: - started Diflucan PO Code(s): B37.31 - ACUTE CANDIDIASIS OF VULVA AND VAGINA (4) Acute pyelonephritis Current Visit: Yes Status: Acute Assessment & Plan: -as demonstrate on CT- see sepsis 05/29/24-Continue Zosyn antibiotic Code(s): N10 - ACUTE PYELONEPHRITIS (5) Chronic indwelling Martinez catheter Current Visit: Yes Status: Chronic Assessment & Plan: -Catheter changed in ED- monitor output closely - no obstruction noted on CT Code(s): Z97.8 - PRESENCE OF OTHER SPECIFIED DEVICES (6) History of DVT (deep vein thrombosis) Current Visit: Yes Status: Acute Assessment & Plan: 05/26 Resumed eliquis Code(s): Z86.718 - PERSONAL HISTORY OF OTHER VENOUS THROMBOSIS AND EMBOLISM (7) History of orthostatic hypotension Current Visit: Yes Status: Acute Assessment & Plan: -continue home midodrine - med held this AM since BP somewhat elevated Code(s): Z86.79 - PERSONAL HISTORY OF OTHER DISEASES OF THE CIRCULATORY SYSTEM (8) Osteomyelitis Current Visit: Yes Status: Acute Assessment & Plan: 05/27:wound cultures with proteus miribilis/ecoli -continue zosyn - dc vanc 05/28: foot debridement this AM 05/29/24- dressing re-enforced, right heel ulcer culture pending Code(s): M86.9 - OSTEOMYELITIS, UNSPECIFIED (9) Paraplegia Current Visit: Yes Status: Chronic Assessment & Plan: -noted adds complexity - chronic indwelling catheter Code(s): G82.20 - PARAPLEGIA, UNSPECIFIED (10) Pneumonia Current Visit: Yes Status: Acute Assessment & Plan: -CT Chest: IMPRESSION: 1. 8 mm calcified nodule in the apical posterior segment of left upper lobe with thick fibro atelectatic bands and posterior parietal pleural thickening in left lung, Secondary to previous infection 2. No acute pathology is noted in both lungs. -Continue zosyn/azithromycin 05/25:-abx changed to vanc/zosyn - azith d/cd due to right heel OM 05/27- Vancomycin stopped 05/28- Continue Zosyn - RA 95% Code(s): J18.9 - PNEUMONIA, UNSPECIFIED ORGANISM (11) Recurrent UTI Current Visit: Yes Status: Acute Assessment & Plan: - Complicated as has chronic indwelling martinez - has chronic UTI's - Continue Zosyn IV - UC + e-coli Code(s): N39.0 - URINARY TRACT INFECTION, SITE NOT SPECIFIED (12) Hypokalemia Current Visit: Yes Status: Resolved Assessment & Plan: - resolved Code(s): E87.6 - HYPOKALEMIA (13) Hyponatremia Current Visit: Yes Status: Resolved Assessment & Plan: - resolved VTE: Eliquis PPI: Protionix Next of KIN: Jennifer Ulloa [phone] D/C plan: per podiatry Code status: Full Code(s): E87.1 - HYPO-OSMOLALITY AND HYPONATREMIA Code(s): E87.1 - HYPO-OSMOLALITY AND HYPONATREMIA
[2024-05-29] MEDS: Protonix 20MG Tablet PO SCH (10:18)
--- NOTE | 2024-05-29 14:01 | PCM.DS ---
Discharge Summary Date of Admission: 05/25/24 05:10 Date of Discharge: 05/29/24 Admitting Physician: TEMO BIGGS MD Consults: Consults on Case 05/24/24 13:21 O [facility] Referral ONCE Primary Care Provider: KYLE CUEVA MD Allergies Allergies hydrocodone Allergy (Mild, Verified 05/24/24 13:03) Nausea and Vomiting Hospital Summary - Hospital Course Hospital Course: 05/28/24 Ms. Arzola is a 28 year old female with a pmhx of paraplegia with an indwelling catheter, recurrent UTIs/kidney stones, DVT, orthostatic hypotension (on midodrine). She presented to ED 05/24/24 with complaints of a 4-5 day history of fever (Tmax 103), cough, left sided abdominal/flank pain, nausea, vomiting, and hematuria. Patient septic on presentation with a temp of 103.9, tachycardic with HR at 115, and hypotensive with BP of 79/53. Ct of the abdomen/pelvis demonstrates bilateral enlarged kidneys with mild [id number]-qmarelbzo, no obstructing stones. right side acute pyelonephritis and bilateral perinephric stranding and retroperitoneal fluid tracking into right iliac. Lab findings remarkable for leukocytosis with WBC at 19.1, normocytic anemia with hemoglobin at 10.8, thrombocytopenia with plts at 163, hyponatremia with sodium at 128, and UA suspicious for infection. Patient given fluid bolus and Rocephin in ED. CT chest showing no acute findings. Admission for sepsis secondary to pyelonephri tis/hyponatremia. Continued zosyn IP. Right heel ulcer on exam - podiatry consulted - MRI concerning for OM. Podiatry recommendations - obtain bone biopsy and bone culture and will likely treat conservatively with bone debridement. This was performed at bedside today. Pt tolerated well with Dilaudid gave IV at time of procedure. BX x2 negative. Urine + e-coli. right heel + e-coli and proteus mirabilis. Continue Zosyn per sensitivity results. Pt had a BM yesterday but still feels constipated. Continue miralax and colace. Continue IVF. Per nursing pt having white vaginal discharge and diflucan started. 05/29/24 Pt resting in bed and has no complaints. Vital signs stable HR 73, T 97.9, BP improved 134/95. N/V and flank/abdominal pain has improved. No evidence of hematuria. WBC is 4.3 today. Podiatry treated right foot wound at bedside yesterday. Right heel culture results pending. Will continue IV antibiotics. Podiatry ok with d/c today. Will d/c with PO Levaquin for 10 days. She is to f/u OP with podiatry Tuesday. She denies any further concerns at thsi time. - Vitals & Intake/Output Vital Signs: Vital Signs Temperature 97.7 F 05/29/24 11:39 Pulse Rate 75 05/29/24 11:39 Respiratory Rate 16 05/29/24 11:39 Blood Pressure 151/98 05/29/24 11:39 O2 Sat by Pulse Oximetry 96 05/29/24 11:39 Intake & Output: Intake & Output 05/27/24 05/28/24 05/29/24 05/30/24 11:59 11:59 11:59 11:59 Intake Total 3899 4738 2400 380 Output Total 1532 6169 2800 Balance -1001 -3897 -400 380 Weight 73.1 kg - Lab Result Diagrams: 05/29/24 05:05 05/29/24 05:05 Lab Results-Last 24 Hrs: Lab Results-Last 24 Hours 05/29/24 05/29/24 Range/Units 05:05 05:05 WBC 4.3 (3.98-10.04) x10^3/uL RBC 3.35 L (3.93-5.22) x10^6/uL Hgb 9.3 L (11.2-15.7) g/dL Hct 29.1 L (34.1-44.9) % MCV 86.9 (79.4-94.8) fL MCH 27.8 (25.6-32.2) pg MCHC 32.0 L (32.2-35.5) g/dL RDW 14.4 (11.7-14.4) % Plt Count 224 (182-369) x10^3/uL MPV 10.0 (9.4-12.3) fL Segmented Neutrophils 55 (34.0-71.1) % Lymphocytes (Manual) 41 (19.3-51.7) % Monocytes (Manual) 2 L (4.7-12.5) % Eosinophils (Manual) 2 (0.7-5.8) % Platelet Estimate NORMAL (NORMAL) RBC Morphology NORMAL Sodium 138 (135-145) mmol/L Potassium 3.6 (3.5-5.1) mmol/L Chloride 102 (98-107) mmol/L Carbon Dioxide 29 (22-30) mmol/L Anion Gap 9.4 (5-15) MEQ/L BUN 6 L (7-17) mg/dL Creatinine 0.53 (0.52-1.04) mg/dL Estimated GFR 130.7 ML/MIN Glucose 89 (74-106) mg/dL Calcium 9.0 (8.4-10.2) mg/dL Total Bilirubin 0.40 (0.2-1.3) mg/dL AST 25 (14-36) U/L ALT 20 (0-35) U/L Alkaline Phosphatase 73 (38-126) U/L Serum Total Protein 6.5 (6.3-8.2) g/dL Albumin 3.2 L (3.5-5.0) g/dL Micro Results-Entire Visit: Microbiology 05/24/24 21:57 Gram Stain - Final Sputum - Expectorant Sputum Culture - Final ORGANISMS ISOLATED ARE CONSISTENT WITH NORMAL RESP JOHN MODERATE GROWTH, NO PREDOMINANT ORGANISM 05/24/24 14:21 Blood Culture - Final Blood 05/24/24 13:47 Blood Culture - Final Blood 05/25/24 12:00 Wound Culture - Final Heel - Right Escherichia Coli Proteus Mirabilis 05/24/24 14:47 Urine Culture - Final Clean Catch Midstream Escherichia Coli - Procedures and Test Procedures and Tests throughout Hospitalization: Therapy Orders & Screens 05/24/24 22:35 Respiratory Therapy Assessment DAILY Comment: Diagnosis: Sepsis UTI, acute pyelonephritis, hyponatremia Discharge Exam General Appearance: no apparent distress, alert Neurologic Exam: alert, oriented x 3, cooperative, normal mood/affect, nml cerebellar function, sensation nml, No motor deficits Eye Exam: PERRL, EOMI, eyes nml inspection Ears, Nose, Throat Exam: normal ENT inspection, pharynx normal, moist mucous membranes Neck Exam: normal inspection, non-tender, supple, full range of motion Respiratory Exam: normal breath sounds, lungs clear, No respiratory distress Cardiovascular Exam: regular rate/rhythm, normal heart sounds Gastrointestinal/Abdomen Exam: soft, No tenderness, No mass Pelvic Exam: deferred Rectal Exam: deferred Back Exam: normal inspection, normal range of motion, No CVA tenderness, No vertebral tenderness Extremity Exam: normal inspection, normal range of motion, other (RLE wrapped) Skin Exam: normal color, warm, dry Wound Assessment: Skin/Wound Assessment Wound/Incision Assessment Start: 05/24/24 18:30 Text: Status: Active Freq: Q6H Protocol: Document 05/29/24 08:00 RF (Rec: 05/29/24 11:00 RF [id number]) Wound/Incision Assessment Right Anterior Foot Wound Assessment Shift Assessment Wound Type Abrasion Wound Stage Non Pressure Wound Dressing Status Dry & Intact Drainage Amount Moderate Drainage Description Sanguineous Drainage Odor None/Absent Comment Right foot dressing remains C/ D/I- dressing changes per podiatry-remains true Right Posterior Heel Wound Assessment Shift Assessment Wound Type Pressure Ulcer Dressing Status Dry & Intact Drainage Amount Moderate Drainage Description Sanguineous Drainage Odor None/Absent Comment Right foot dressing remains C/ D/I- dressing changes per podiatry-remains true Wound Photo Photo Taken No Comment: See paper chart for photos on admission. Final Diagnosis/Problem List - Final Discharge Diagnosis/Problem (1) Sepsis Current Visit: Yes Status: Acute (2) Pressure ulcer of right heel, stage 3 Current Visit: Yes Status: Acute Code(s): L89.613 - PRESSURE ULCER OF RIGHT HEEL, STAGE 3 (3) Vaginal yeast infection Current Visit: Yes Status: Acute Code(s): B37.31 - ACUTE CANDIDIASIS OF VULVA AND VAGINA (4) Acute pyelonephritis Current Visit: Yes Status: Acute Code(s): N10 - ACUTE PYELONEPHRITIS (5) Chronic indwelling Martinez catheter Current Visit: Yes Status: Chronic Code(s): Z97.8 - PRESENCE OF OTHER SPECIFIED DEVICES (6) History of DVT (deep vein thrombosis) Current Visit: Yes Status: Acute Code(s): Z86.718 - PERSONAL HISTORY OF OTHER VENOUS THROMBOSIS AND EMBOLISM (7) History of orthostatic hypotension Current Visit: Yes Status: Acute Code(s): Z86.79 - PERSONAL HISTORY OF OTHER DISEASES OF THE CIRCULATORY SYSTEM (8) Osteomyelitis Current Visit: Yes Status: Acute Code(s): M86.9 - OSTEOMYELITIS, UNSPECIFIED (9) Paraplegia Current Visit: Yes Status: Chronic Code(s): G82.20 - PARAPLEGIA, UNSPECIFIED (10) Pneumonia Current Visit: Yes Status: Acute Code(s): J18.9 - PNEUMONIA, UNSPECIFIED ORGANISM (11) Recurrent UTI Current Visit: Yes Status: Acute Code(s): N39.0 - URINARY TRACT INFECTION, SITE NOT SPECIFIED (12) Hypokalemia Current Visit: Yes Status: Resolved Code(s): E87.6 - HYPOKALEMIA (13) Hyponatremia Current Visit: Yes Status: Resolved Assessment & Plan: (1) Sepsis Current Visit: Yes Status: Acute Assessment & Plan: -Most likely secondary to UTI - meeting criteria on admission with tachycardia, febrile, known source of infection, elevated lactate, hypotension -2L fluid bolus given on admission -LA now wnl -WBC downtrending 13.0<16.2 -Zosyn/azithromycin started -continue -CT abd/pelvis demonstrates bilateral enlarged kidneys with mild hy oma-lgzqydh-ciedtrtrk, no obstructing stones. right side acute pyelonephritis and bilateral perinephric stranding and retroperitoneal fluid tracking into right iliac. -blood culture pending -afebrile overnight -follow urine and blood cultures - urine cult pre-sanchez with gram - ID -supplemental oxygen with goal spo2 >92% - currently on RA 05/26: -no longer meeting criteria -multifactoral with UTI/OM to right heel -WBC now wnl -continue vanc/zosyn 05/27: -wound cultures with proteus miribilis/ecoli -ucult with ecoli -D/c vanc- continue zosyn 05/29-Sepsis resolved (2) Pressure ulcer of right heel, stage 3 Current Visit: Yes Status: Acute Assessment & Plan: -chronic - did receive wound therapy as op - has not had in several months - has not followed up with podiatry -podiatry consulted - reviewed note - MRI is concerning for OM - plan for bedside debridement Tuesday -vanc/zosyn 05/27-wound cultures with proteus miribilis/ecoli -continue zosyn - dc vanc 05/28- bedside debridement today with podiatry 05/29-Podiatry to continue to follow and treat OP - Pt to f/u with podiatry Tuesday - Continue Levaquin PO x10 days. Code(s): L89.613 - PRESSURE ULCER OF RIGHT HEEL, STAGE 3 (3) Vaginal yeast infection Current Visit: Yes Status: Acute Assessment & Plan: - started Diflucan PO Code(s): B37.31 - ACUTE CANDIDIASIS OF VULVA AND VAGINA (4) Acute pyelonephritis Current Visit: Yes Status: Acute Assessment & Plan: -as demonstrate on CT- see sepsis 05/29/24-Continue Zosyn antibiotic Code(s): N10 - ACUTE PYELONEPHRITIS (5) Chronic indwelling Martinez catheter Current Visit: Yes Status: Chronic Assessment & Plan: -Catheter changed in ED- monitor output closely - no obstruction noted on CT Code(s): Z97.8 - PRESENCE OF OTHER SPECIFIED DEVICES (6) History of DVT (deep vein thrombosis) Current Visit: Yes Status: Acute Assessment & Plan: 05/26 Resumed eliquis Code(s): Z86.718 - PERSONAL HISTORY OF OTHER VENOUS THROMBOSIS AND EMBOLISM (7) History of orthostatic hypotension Current Visit: Yes Status: Acute Assessment & Plan: -continue home midodrine - med held this AM since BP somewhat elevated Code(s): Z86.79 - PERSONAL HISTORY OF OTHER DISEASES OF THE CIRCULATORY SYSTEM (8) Osteomyelitis Current Visit: Yes Status: Acute Assessment & Plan: 05/27:wound cultures with proteus miribilis/ecoli -continue zosyn - dc vanc 05/28: foot debridement this AM 05/29/24- dressing re-enforced, right heel ulcer culture pending Code(s): M86.9 - OSTEOMYELITIS, UNSPECIFIED (9) Paraplegia Current Visit: Yes Status: Chronic Assessment & Plan: -noted adds complexity - chronic indwelling catheter Code(s): G82.20 - PARAPLEGIA, UNSPECIFIED (10) Pneumonia Current Visit: Yes Status: Acute Assessment & Plan: -CT Chest: IMPRESSION: 1. 8 mm calcified nodule in the apical posterior segment of left upper lobe with thick fibro atelectatic bands and posterior parietal pleural thickening in left lung, Secondary to previous infection 2. No acute pathology is noted in both lungs. -Continue zosyn/azithromycin 05/25:-abx changed to vanc/zosyn - azith d/cd due to right heel OM 05/27- Vancomycin stopped 05/28- Continue Zosyn - RA 95% Code(s): J18.9 - PNEUMONIA, UNSPECIFIED ORGANISM (11) Recurrent UTI Current Visit: Yes Status: Acute Assessment & Plan: - Complicated as has chronic indwelling martinez - has chronic UTI's - Continue Zosyn IV - UC + e-coli Code(s): N39.0 - URINARY TRACT INFECTION, SITE NOT SPECIFIED (12) Hypokalemia Current Visit: Yes Status: Resolved Assessment & Plan: - resolved Code(s): E87.6 - HYPOKALEMIA (13) Hyponatremia Current Visit: Yes Status: Resolved Assessment & Plan: - resolved Code(s): E87.1 - HYPO-OSMOLALITY AND HYPONATREMIA - Discharge Discharge Date: 05/29/24 Disposition: Home, Self-Care Condition: Stable Prescriptions: Continue Midodrine HCl 10 mg PO BID Lactobacillus Acidophilus [Acidophilus] 1 tab PO DAILY Guaifenesin [Mucinex] 1,200 mg PO BID Gabapentin 800 mg PO TID Famotidine 20 mg [Pepcid 20 MG] 20 mg pe PO BID Docusate Sodium 100 mg [Docusate Sodium 100 MG] 100 mg PO TID Apixaban [Eliquis] 5 mg PO BID ALPRAZolam [Xanax] 1 mg PO TID Polyethylene Glycol 3350 17 gm [Miralax Powder 17GM PACKET] 17 gm PO BID Sertraline HCl 100 mg PO HS Quetiapine Fumarate 50 mg PO HS Sennosides [Senna] 17.2 mg PO HS Buspirone HCl 5 mg [Buspar 5 mg] 15 mg PO TID Acetaminophen 500 mg [Tylenol Extra Strength 500 mg] 1,000 mg PO DAILY PRN PRN PRN Reason: Pain Cyanocobalamin (Vitamin B-12) [Vitamin B-12] 1,000 mg PO DAILY Hydroxyzine HCl 25 mg [Atarax 25 mg] 25 mg PO TID Ergocalciferol (Vitamin D2) [Vitamin D2] 50,000 unit PO UD Melatonin 3 mg PO QHS Lactulose 30 ml PO DAILY PRN PRN PRN Reason: Constipation Cyclobenzaprine HCl 5 mg PO TID Tramadol HCl 50 mg [Ultram 50 mg] 50 mg PO TID Follow up with: AILYN KIRBY DPM [ACTIVE STAFF] - Call for Appointment KYLE CUEVA MD [Primary Care Provider] - Office will call patient
--- NOTE | 2024-05-29 14:48 | PCM.NOTE ---
Date and Time: 05/29/241436 Subjective Assessment: resting in bed early this morning with complaints of intermittent pain to the right lower extremity. Patient denies any continued constitutional symptoms of infection. Denies any other pedal complaints at this time. Physical Exam - Narrative Narrative Physical Exam: Podiatry Physical Exam Objective Data Vital Signs: Vital Signs - 24 hr Temp Pulse Resp BP Pulse Ox 05/29/24 11:39 97.7 F 75 16 151/98 96 05/29/24 07:47 97.9 F 73 16 134/95 95 05/29/24 07:18 70 16 96 05/29/24 04:00 97.1 F 75 16 167/97 96 05/28/24 23:08 97.2 F 89 16 136/89 92 L 05/28/24 19:40 85 16 95 05/28/24 18:58 80/50 05/28/24 18:57 96.2 F 90 16 73/38 95 05/28/24 16:00 97.8 F 79 16 142/71 96 Pain Assessment - Last Documented Pain Intensity 4 Pain Scale Used 0-10 Pain Scale Intake and Output: Intake & Output 05/27/24 05/28/24 05/29/24 05/30/24 11:59 11:59 11:59 11:59 Intake Total 3899 3618 2400 380 Output Total 5960 5125 2800 Balance -1001 -8585 -400 380 Weight 73.1 kg Lab Results: Lab Results-Last 24 Hours 05/29/24 05/29/24 Range/Units 05:05 05:05 WBC 4.3 (3.98-10.04) x10^3/uL RBC 3.35 L (3.93-5.22) x10^6/uL Hgb 9.3 L (11.2-15.7) g/dL Hct 29.1 L (34.1-44.9) % MCV 86.9 (79.4-94.8) fL MCH 27.8 (25.6-32.2) pg MCHC 32.0 L (32.2-35.5) g/dL RDW 14.4 (11.7-14.4) % Plt Count 224 (182-369) x10^3/uL MPV 10.0 (9.4-12.3) fL Segmented Neutrophils 55 (34.0-71.1) % Lymphocytes (Manual) 41 (19.3-51.7) % Monocytes (Manual) 2 L (4.7-12.5) % Eosinophils (Manual) 2 (0.7-5.8) % Platelet Estimate NORMAL (NORMAL) RBC Morphology NORMAL Sodium 138 (135-145) mmol/L Potassium 3.6 (3.5-5.1) mmol/L Chloride 102 (98-107) mmol/L Carbon Dioxide 29 (22-30) mmol/L Anion Gap 9.4 (5-15) MEQ/L BUN 6 L (7-17) mg/dL Creatinine 0.53 (0.52-1.04) mg/dL Estimated GFR 130.7 ML/MIN Glucose 89 (74-106) mg/dL Calcium 9.0 (8.4-10.2) mg/dL Total Bilirubin 0.40 (0.2-1.3) mg/dL AST 25 (14-36) U/L ALT 20 (0-35) U/L Alkaline Phosphatase 73 (38-126) U/L Serum Total Protein 6.5 (6.3-8.2) g/dL Albumin 3.2 L (3.5-5.0) g/dL Multi-Disciplinary Progress Notes: Multi-Disciplinary Progress Notes 05/28/24 17:04 Nutrition Note by Tyron Centeno Dressing to right lower leg changed. Applied iodine to wound, applied adaptic, sterile 4x4 gauze over wound. Applied unna boot, fan-folded to level of tibial tuberosity. Applied ABD over heel. Wrapped foot and lower leg with kerlix to same level. Wrapped with coban with mild compression to same level. Pt tolerated well. Initialized on 05/28/24 17:04 - END OF NOTE Assessment/Plan (1) Pressure ulcer of right heel, stage 3 Current Visit: Yes Status: Acute Assessment & Plan: MRI obtained demonstrating focal area just distal to the ulceration at plantar aspect of the right calcaneus. Discussion was held regarding this finding and due to the fact this is a chronic non healing ulceration decision was made to proceed with a bedside bone debridement and bone biopsy and culture. Patient consent was obtained prior to procedure The RLE was prepped and draped in the typical sterile fashion .5 mg of dialudad was administered by nurse at this time. At this time a 10 cc block was provided to the posterior tibial and sural nerve distributions for intraoperative comfort. Following this a combination of ronguers and curettes were utilized to debride the bone in the footprint of where the MRI demonstrated some increased signal on T2 and drop out on T1. Two bone samples were taken at this time and sent for microbiological and pathological assessment. After achieving hemostasis the are was cleansed with copious amounts of sterile saline. iodine was used to flush the site. A dressing consisting of iodine adaptic 4x4 kerlix abd and harini was applied to the right lower extremity. Patient handled the procedure without significant complication. Will await bone biopsies Soft tissue cultures obtained on admission demonstrating two bacteria sensitive to levoflxacin which is also beneficial for use with patients current UTI Plan for dressing change tomorrow. Ok for d/c if medicine team agrees. Will monitor outpatient [facility] for dressing changes until follow up. Code(s): L89.613 - PRESSURE ULCER OF RIGHT HEEL, STAGE 3 (2) Acute pyelonephritis Current Visit: Yes Status: Acute Code(s): N10 - ACUTE PYELONEPHRITIS (3) Hyponatremia Current Visit: Yes Status: Resolved Code(s): E87.1 - HYPO-OSMOLALITY AND HYPONATREMIA (4) Paraplegia Current Visit: Yes Status: Chronic Code(s): G82.20 - PARAPLEGIA, UNSPECIFIED (5) Chronic indwelling [place] catheter Current Visit: Yes Status: Chronic Code(s): Z97.8 - PRESENCE OF OTHER SPECIFIED DEVICES (6) Recurrent UTI Current Visit: Yes Status: Acute Code(s): N39.0 - URINARY TRACT INFECTION, SITE NOT SPECIFIED (7) History of orthostatic hypotension Current Visit: Yes Status: Acute Code(s): Z86.79 - PERSONAL HISTORY OF OTHER DISEASES OF THE CIRCULATORY SYSTEM (8) Osteomyelitis Current Visit: Yes Status: Acute Code(s): M86.9 - OSTEOMYELITIS, UNSPECIFIED
[2024-05-29] MEDS: Hydromorphone 1 mg/ml Injection IV PRN (19:38)
[2024-05-30 05:12] LABS: Absolute Neutrophil Ct (ANC) 1.87 x10^3/uL (1.56-6.13); BASOPHIL % 1.1 % (0.1-1.2); Basophil (Absolute #) 0.05 x10^3/uL (0.01-0.08); Eosinophil % 6.7 % (0.7-5.8); Eosinophil (Absolute #) 0.31 x10^3/uL (0.04-0.36); Hematocrit 27.8 % (34.1-44.9); IMMATURE GRAN # 0.01 x10^3u/L (0.001-0.031); IMMATURE GRAN % 0.2 % (0.001-0.429); Lymphocyte (Absolute #) 2.08 x10^3/uL (1.18-3.74); Lymphocytes % 44.9 % (19.3-51.7); Mean Cell Volume 86.1 fL (79.4-94.8); Mean Corpuscular Hemoglobin 27.9 pg (25.6-32.2); Mean Corpuscular Hgb Concent. 32.4 g/dL (32.2-35.5); Mean Platelet Volume 9.8 fL (9.4-12.3); Monocyte (Absolute #) 0.31 x10^3/uL (0.24-0.86); Monocytes % 6.7 % (4.7-12.5); Neutrophil % 40.4 % (34.0-71.1); Platelet Count 242 x10^3/uL (182-369); Red Blood Count 3.23 x10^6/uL (3.93-5.22); Red Cell Distribution Width 14.4 % (11.7-14.4); White Blood Count 4.6 x10^3/uL (3.98-10.04)
[2024-05-30 05:29] LABS: ALBUMIN 3.2 g/dL (3.5-5.0); ANION GAP 9.1 MEQ/L (5-15); BILIRUBIN,TOTAL 0.3 mg/dL (0.2-1.3); Calcium 8.7 mg/dL (8.4-10.2); Creatinine 1 0.56 mg/dL (0.52-1.04); Potassium 3.4 mmol/L (3.5-5.1); Total Protein 6.4 g/dL (6.3-8.2)
[2024-05-30 07:15] VITALS: BP 149/91; RESP 16
--- NOTE | 2024-05-30 10:04 | PCM.DS ---
Discharge Summary Date of Admission: 05/25/24 05:10 Date of Discharge: 05/30/24 Admitting Physician: TEMO BIGGS MD Consults: Consults on Case 05/24/24 13:21 [facility] Referral ONCE Primary Care Provider: KYLE CUEVA MD Allergies Allergies hydrocodone Allergy (Mild, Verified 05/24/24 13:03) Nausea and Vomiting Hospital Summary - Hospital Course Hospital Course: 05/28/24 Ms. Arzola is a 28 year old female with a pmhx of paraplegia with an indwelling catheter, recurrent UTIs/kidney stones, DVT, orthostatic hypotension (on midodrine). She presented to ED 05/24/24 with complaints of a 4-5 day history of fever (Tmax 103), cough, left sided abdominal/flank pain, nausea, vomiting, and hematuria. Patient septic on presentation with a temp of 103.9, tachycardic with HR at 115, and hypotensive with BP of 79/53. Ct of the abdomen/pelvis demonstrates bilateral enlarged kidneys with mild [id number]-bdftvtajs, no obstructing stones. right side acute pyelonephritis and bilateral perinephric stranding and retroperitoneal fluid tracking into right iliac. Lab findings remarkable for leukocytosis with WBC at 19.1, normocytic anemia with hemoglobin at 10.8, thrombocytopenia with plts at 163, hyponatremia with sodium at 128, and UA suspicious for infection. Patient given fluid bolus and Rocephin in ED. CT chest showing no acute findings. Admission for sepsis secondary to pyelonephr itis/hyponatremia. Continued zosyn IP. Right heel ulcer on exam - podiatry consulted - MRI concerning for OM. Podiatry recommendations - obtain bone biopsy and bone culture and will likely treat conservatively with bone debridement. This was performed at bedside today. Pt tolerated well with Dilaudid gave IV at time of procedure. BX x2 negative. Urine + e-coli. right heel + e-coli and proteus mirabilis. Continue Zosyn per sensitivity results. Pt had a BM yesterday but still feels constipated. Continue miralax and colace. Continue IVF. Per nursing pt having white vaginal discharge and diflucan started. 05/29/24 Pt resting in bed and has no complaints. Vital signs stable HR 73, T 97.9, BP im proved 134/95. N/V and flank/abdominal pain has improved. No evidence of hematuria. WBC is 4.3 today. Podiatry treated right foot wound at bedside yesterday. Right heel culture results pending. Will continue IV antibiotics. Awaiting podiatry recs for d/c plan. 05/30/24 Pt resting in bed. She was to be discharged yesterday but stated she was unable to get into her home until today. She is asking for pain med to d/c. INSPECT reviewed and it shows she takes 1mg of Ativan TID daily. Will ask podiatry if he is willing to prescribe pain meds. Ativan is not on her current med list in the hospital. Narcan prescribed OP as she is at high risk for respiratory depression with benzos, narcotic pain meds, and gabapentin combination. She denies any further concerns at this time. Camryn sent in yesterday. F/U appointment with podiatry scheduled. - Vitals & Intake/Output Vital Signs: Vital Signs Temperature 98.2 F 05/30/24 07:14 Pulse Rate 86 05/30/24 07:14 Respiratory Rate 16 05/30/24 07:14 Blood Pressure 149/91 05/30/24 07:14 O2 Sat by Pulse Oximetry 93 L 05/30/24 07:14 Intake & Output: Intake & Output 05/27/24 05/28/24 05/29/24 05/30/24 11:59 11:59 11:59 11:59 Intake Total 3899 3618 2400 4359 Output Total 4900 5125 2800 0020 Balance -1009 -1651 -400 -5911 Weight 73.1 kg - Lab Result Diagrams: 05/30/24 05:00 05/30/24 05:00 Lab Results-Last 24 Hrs: Lab Results-Last 24 Hours 05/30/24 05/30/24 Range/Units 05:00 05:00 WBC 4.6 (3.98-10.04) x10^3/uL RBC 3.23 L (3.93-5.22) x10^6/uL Hgb 9.0 L (11.2-15.7) g/dL Hct 27.8 L (34.1-44.9) % MCV 86.1 (79.4-94.8) fL MCH 27.9 (25.6-32.2) pg MCHC 32.4 (32.2-35.5) g/dL RDW 14.4 (11.7-14.4) % Plt Count 242 (182-369) x10^3/uL MPV 9.8 (9.4-12.3) fL Gran % 40.4 (34.0-71.1) % Immature Gran % (Auto) 0.2 (0.001-0.429) % Nucleat RBC Rel Count 0.0 (0.00-0.2) % Eos # (Auto) 0.31 (0.04-0.36) x10^3/uL Immature Gran # (Auto) 0.01 (0.001-0.031) x10^3u/L Absolute Lymphs (auto) 2.08 (1.18-3.74) x10^3/uL Absolute Monos (auto) 0.31 (0.24-0.86) x10^3/uL Absolute Nucleated RBC 0.00 (0.00-0.012) x10^3u/L Lymphocytes % 44.9 (19.3-51.7) % Monocytes % 6.7 (4.7-12.5) % Eosinophils % 6.7 H (0.7-5.8) % Basophils % 1.1 (0.1-1.2) % Absolute Granulocytes 1.87 (1.56-6.13) x10^3/uL Basophils # 0.05 (0.01-0.08) x10^3/uL Sodium 135 (135-145) mmol/L Potassium 3.4 L (3.5-5.1) mmol/L Chloride 103 (98-107) mmol/L Carbon Dioxide 27 (22-30) mmol/L Anion Gap 9.1 (5-15) MEQ/L BUN 4 L (7-17) mg/dL Creatinine 0.56 (0.52-1.04) mg/dL Estimated GFR 129.0 ML/MIN Glucose 92 (74-106) mg/dL Calcium 8.7 (8.4-10.2) mg/dL Total Bilirubin 0.30 (0.2-1.3) mg/dL AST 30 (14-36) U/L ALT 18 (0-35) U/L Alkaline Phosphatase 57 (38-126) U/L Serum Total Protein 6.4 (6.3-8.2) g/dL Albumin 3.2 L (3.5-5.0) g/dL Micro Results-Entire Visit: Microbiology 05/28/24 08:00 Anaerobic Culture Result 1 - Final Heel - Right Not Reportable Anaerobic Culture Result 2 - Final Not Reportable Anaerobic Culture Result 3 - Final Not Reportable Anaerobic Culture Result 4 - Final Not Reportable Antimicrobic Susceptibility - Final Not Reportable Aerobic Culture Result 1 - Final Not Reportable Aerobic Culture Result 2 - Final Not Reportable - Final Not Reportable Aerobic Culture Result 4 - Final Not Reportable Aerobic & Anaerobic Susceptibility - Final Not Reportable 05/24/24 21:57 Gram Stain - Final Sputum - Expectorant Sputum Culture - Final ORGANISMS ISOLATED ARE CONSISTENT WITH NORMAL RESP JOHN MODERATE GROWTH, NO PREDOMINANT ORGANISM 05/24/24 14:21 Blood Culture - Final Blood 05/24/24 13:47 Blood Culture - Final Blood 05/25/24 12:00 Wound Culture - Final Heel - Right Escherichia Coli Proteus Mirabilis 05/24/24 14:47 Urine Culture - Final Clean Catch Midstream Escherichia Coli - Procedures and Test Procedures and Tests throughout Hospitalization: Therapy Orders & Screens 05/24/24 22:35 Respiratory Therapy Assessment DAILY Comment: Diagnosis: Sepsis UTI, acute pyelonephritis, hyponatremia Discharge Exam General Appearance: no apparent distress, alert Neurologic Exam: alert, oriented x 3, cooperative, normal mood/affect, nml cerebellar function, sensation nml, No motor deficits Eye Exam: PERRL, EOMI, eyes nml inspection Ears, Nose, Throat Exam: normal ENT inspection, pharynx normal, moist mucous membranes Neck Exam: normal inspection, non-tender, supple, full range of motion Respiratory Exam: normal breath sounds, lungs clear, No respiratory distress Cardiovascular Exam: regular rate/rhythm, normal heart sounds Gastrointestinal/Abdomen Exam: soft, No tenderness, No mass Pelvic Exam: deferred Rectal Exam: deferred Back Exam: normal inspection, normal range of motion, No CVA tenderness, No vertebral tenderness Extremity Exam: normal inspection, normal range of motion, other (RLE wrapped) Skin Exam: normal color, warm, dry Wound Assessment: Skin/Wound Assessment Wound/Incision Assessment Start: 05/24/24 18:30 Text: Status: Active Freq: Q6H Protocol: Document 05/30/24 02:00 MP (Rec: 05/30/24 02:37 MP [id number]) Wound/Incision Assessment Right Anterior Foot Wound Assessment Shift Assessment Wound Type Abrasion Wound Stage Non Pressure Wound Comment Dressing C/D/I- dressing changes per podiatry Right Posterior Heel Wound Assessment Shift Assessment Wound Type Pressure Ulcer Comment dressing C/D/I unable to assess wound- podiatry dressing change Wound Photo Photo Taken No Final Diagnosis/Problem List - Final Discharge Diagnosis/Problem (1) Sepsis Current Visit: Yes Status: Acute (2) Pressure ulcer of right heel, stage 3 Current Visit: Yes Status: Acute Code(s): L89.613 - PRESSURE ULCER OF RIGHT HEEL, STAGE 3 (3) Vaginal yeast infection Current Visit: Yes Status: Acute Code(s): B37.31 - ACUTE CANDIDIASIS OF VULVA AND VAGINA (4) Acute pyelonephritis Current Visit: Yes Status: Acute Code(s): N10 - ACUTE PYELONEPHRITIS (5) Chronic indwelling Martinez catheter Current Visit: Yes Status: Chronic Code(s): Z97.8 - PRESENCE OF OTHER SPECIFIED DEVICES (6) History of DVT (deep vein thrombosis) Current Visit: Yes Status: Acute Code(s): Z86.718 - PERSONAL HISTORY OF OTHER VENOUS THROMBOSIS AND EMBOLISM (7) History of orthostatic hypotension Current Visit: Yes Status: Acute Code(s): Z86.79 - PERSONAL HISTORY OF OTHER DISEASES OF THE CIRCULATORY SYSTEM (8) Osteomyelitis Current Visit: Yes Status: Acute Code(s): M86.9 - OSTEOMYELITIS, UNSPECIFIED (9) Paraplegia Current Visit: Yes Status: Chronic Code(s): G82.20 - PARAPLEGIA, UNSPECIFIED (10) Pneumonia Current Visit: Yes Status: Acute Code(s): J18.9 - PNEUMONIA, UNSPECIFIED ORGANISM (11) Recurrent UTI Current Visit: Yes Status: Acute Code(s): N39.0 - URINARY TRACT INFECTION, SITE NOT SPECIFIED (12) Hypokalemia Current Visit: Yes Status: Resolved Code(s): E87.6 - HYPOKALEMIA (13) Hyponatremia Current Visit: Yes Status: Resolved Assessment & Plan: (1) Sepsis Current Visit: Yes Status: Acute Assessment & Plan: -Most likely secondary to UTI - meeting criteria on admission with tachycardia, febrile, known source of infection, elevated lactate, hypotension -2L fluid bolus given on admission -LA now wnl -WBC downtrending 13.0<16.2 -Zosyn/azithromycin started -continue -CT abd/pelvis demonstrates bilateral enlarged kidneys with mild bgbbj-sjjbifu-lgsueziou, no obstructing stones. right side acute pyelonephritis and bilateral perinephric stranding and retroperitoneal fluid tracking into right iliac. -blood culture pending -afebrile overnight -follow urine and blood cultures - urine cult pre-sanchez with gram - ID -supplemental oxygen with goal spo2 >92% - currently on RA 05/26: -no longer meeting criteria -multifactoral with UTI/OM to right heel -WBC now wnl -continue vanc/zosyn 05/27: -wound cultures with proteus miribilis/ecoli -ucult with ecoli -D/c vanc- continue zosyn 05/29-Sepsis resolved (2) Pressure ulcer of right heel, stage 3 Current Visit: Yes Status: Acute Assessment & Plan: -chronic - did receive wound therapy as op - has not had in several months - has not followed up with podiatry -podiatry consulted - reviewed note - MRI is concerning for OM - plan for bedside debridement Tuesday -vanc/zosyn 05/27-wound cultures with proteus miribilis/ecoli -continue zosyn - dc vanc 05/28- bedside debridement today with podiatry 05/29-Podiatry to continue to follow and treat 05/30- Per podiatry continue Levaquin PO OP Code(s): L89.613 - PRESSURE ULCER OF RIGHT HEEL, STAGE 3 (3) Vaginal yeast infection Current Visit: Yes Status: Acute Assessment & Plan: - started Diflucan PO 05/30 - med completed Code(s): B37.31 - ACUTE CANDIDIASIS OF VULVA AND VAGINA (4) Acute pyelonephritis Current Visit: Yes Status: Acute Assessment & Plan: -as demonstrate on CT- see sepsis 05/29/24-Continue Zosyn antibiotic 05/30 - Continue Levaquin OP Code(s): N10 - ACUTE PYELONEPHRITIS (5) Chronic indwelling Martinez catheter Current Visit: Yes Status: Chronic Assessment & Plan: -Catheter changed in ED- monitor output closely - no obstruction noted on CT Code(s): Z97.8 - PRESENCE OF OTHER SPECIFIED DEVICES (6) History of DVT (deep vein thrombosis) Current Visit: Yes Status: Acute Assessment & Plan: 05/26 Resumed eliquis Code(s): Z86.718 - PERSONAL HISTORY OF OTHER VENOUS THROMBOSIS AND EMBOLISM (7) History of orthostatic hypotension Current Visit: Yes Status: Acute Assessment & Plan: -continue home midodrine - med held this AM since BP somewhat elevated Code(s): Z86.79 - PERSONAL HISTORY OF OTHER DISEASES OF THE CIRCULATORY SYSTEM (8) Osteomyelitis Current Visit: Yes Status: Acute Assessment & Plan: 05/27:wound cultures with proteus miribilis/ecoli -continue zosyn - dc vanc 05/28: foot debridement this AM 05/29/24- dressing re-enforced, right heel ulcer culture pending Code(s): M86.9 - OSTEOMYELITIS, UNSPECIFIED (9) Paraplegia Current Visit: Yes Status: Chronic Assessment & Plan: -noted adds complexity - chronic indwelling catheter Code(s): G82.20 - PARAPLEGIA, UNSPECIFIED (10) Pneumonia Current Visit: Yes Status: Acute Assessment & Plan: -CT Chest: IMPRESSION: 1. 8 mm calcified nodule in the apical posterior segment of left upper lobe with thick fibro atelectatic bands and posterior parietal pleural thickening in left lung, Secondary to previous infection 2. No acute pathology is noted in both lungs. -Continue zosyn/azithromycin 05/25:-abx changed to vanc/zosyn - azith d/cd due to right heel OM 05/27- Vancomycin stopped 05/28- Continue Zosyn - RA 95% Code(s): J18.9 - PNEUMONIA, UNSPECIFIED ORGANISM (11) Recurrent UTI Current Visit: Yes Status: Acute Assessment & Plan: - Complicated as has chronic indwelling martinez - has chronic UTI's - Continue Zosyn IV - UC + e-coli 05/30 - D/C with Levaquin PO Code(s): N39.0 - URINARY TRACT INFECTION, SITE NOT SPECIFIED (12) Hypokalemia Current Visit: Yes Status: Resolved Assessment & Plan: - resolved 05/30 - K+ 3.4- replaced Code(s): E87.6 - HYPOKALEMIA (13) Hyponatremia Current Visit: Yes Status: Resolved Assessment & Plan: - resolved Code(s): E87.1 - HYPO-OSMOLALITY AND HYPONATREMIA - Discharge Discharge Date: 05/30/24 Disposition: Home, Self-Care Condition: Stable Prescriptions: New Levofloxacin [Levofloxacin 500 MG Tablet] 500 mg PO DAILY 10 Days #10 tablet Naloxone HCl [Narcan] 4 mg NS DAILY PRN PRN 1 Days #1 blist PRN Reason: Respiratory Depression Continue Midodrine HCl 10 mg PO BID Lactobacillus Acidophilus [Acidophilus] 1 tab PO DAILY Guaifenesin [Mucinex] 1,200 mg PO BID Gabapentin 800 mg PO TID Famotidine 20 mg [Pepcid 20 MG] 20 mg pe PO BID Docusate Sodium 100 mg [Docusate Sodium 100 MG] 100 mg PO TID Apixaban [Eliquis] 5 mg PO BID ALPRAZolam [Xanax] 1 mg PO TID Polyethylene Glycol 3350 17 gm [Miralax Powder 17GM PACKET] 17 gm PO BID Sertraline HCl 100 mg PO HS Quetiapine Fumarate 50 mg PO HS Sennosides [Senna] 17.2 mg PO HS Buspirone HCl 5 mg [Buspar 5 mg] 15 mg PO TID Acetaminophen 500 mg [Tylenol Extra Strength 500 mg] 1,000 mg PO DAILY PRN PRN PRN Reason: Pain Cyanocobalamin (Vitamin B-12) [Vitamin B-12] 1,000 mg PO DAILY Hydroxyzine HCl 25 mg [Atarax 25 mg] 25 mg PO TID Ergocalciferol (Vitamin D2) [Vitamin D2] 50,000 unit PO UD Melatonin 3 mg PO QHS Lactulose 30 ml PO DAILY PRN PRN PRN Reason: Constipation Cyclobenzaprine HCl 5 mg PO TID Tramadol HCl 50 mg [Ultram 50 mg] 50 mg PO TID Additional Instructions: [facility] WILL [facility]UME. THEY WILL CALL YOU TO ARRANGE A TIME TO COME SEE YOU. THEIR PHONE NUMBER IS [phone] IF YOU NEED ANYTHING BEFORE THEY CONTACT YOU. [facility] WILL DO YOUR DRESSING CHANGES Follow up with: AILYN KIRBY DPM [ACTIVE STAFF] - 10/03/24 9:00 am KYLE CUEVA MD [Primary Care Provider] - Office will call patient
[2024-05-30] MEDS: Klor Con PO ONE (10:05)
[2024-05-30] MEDS: VITAMIN D2 PO SCH (10:06)
[2024-05-30 12:13] VITALS: PULSE 105; TEMP 98; O2SAT 94
== END 2024-05-30 13:55 | disposition home or self-care (01) | DRG 673 ==
LOC: ED 12:59 → MED SURG 17:59 → OBSVTOIN 05-25 05:10 → ED 05-25 12:59 → MED SURG 05-25 17:59
PROVIDERS: ADMIT Internal Medicine; ATTEND Internal Medicine
PROC: 0JBQ0ZZ Excision of Right Foot Subcutaneous Tissue and Fascia, Open Approach (ICD-10-PCS; principal; 2024-05-25)
DX: N10 Acute pyelonephritis (principal); A41.9 Sepsis, unspecified organism; J18.9 Pneumonia, unspecified organism; L89.613 Pressure ulcer of right heel, stage 3; M86.9 Osteomyelitis, unspecified; G82.20 Paraplegia, unspecified; E87.1 Hypo-osmolality and hyponatremia; N39.0 Urinary tract infection, site not specified; Z59.811 Housing instability, housed, with risk of homelessness; Z59.82 Transportation insecurity; B37.31 Acute candidiasis of vulva and vagina; Z97.8 Presence of other specified devices; Z86.718 Personal history of other venous thrombosis and embolism; Z86.79 Personal history of other diseases of the circulatory system; E87.6 Hypokalemia; K59.00 Constipation, unspecified; B96.20 Unspecified Escherichia coli [E. coli] as the cause of diseases classified elsewhere; R50.9 Fever, unspecified; R00.0 Tachycardia, unspecified; I95.9 Hypotension, unspecified; D72.829 Elevated white blood cell count, unspecified; D64.9 Anemia, unspecified; Z79.01 Long term (current) use of anticoagulants; Z79.899 Other long term (current) drug therapy
CPT/HCPCS: 11042; 29580; 29581; 36000; 36415; 51702; 71250; 73630; 73719; 74176; 80048; 80053; 80202; 81001; 81025; 83605; 83690; 83735; 84132; 84134; 84145; 84295; 85025; 85027; 87040; 87070; 87075; 87077; 87086; 87186; 93268; 93926; 94640; 94760; 94762; 96360; 96361; 96365; 96367; 96374; 96375; 99223; 99232; 99285; G0378; Q3014; 28005; J0456; J0696; J1170; J2270; J2405; J3010; A9270-GY; J3370

== ENCOUNTER 2024-06-16 09:05 | Emergency (ER) | payer MEDICAID ==
[2024-06-16 09:16] VITALS: RESP 16; TEMP 97.4; O2SAT 97
[2024-06-16] MEDS ORDERED: Sodium Chloride 0.9% 1000 ML 1,000 ML ONE (09:29)
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
[2024-06-16 09:37] LABS: Absolute Neutrophil Ct (ANC) 5.48 x10^3/uL (1.56-6.13); BASOPHIL % 0.4 % (0.1-1.2); Basophil (Absolute #) 0.03 x10^3/uL (0.01-0.08); Eosinophil (Absolute #) 0.15 x10^3/uL (0.04-0.36); Hematocrit 33.5 % (34.1-44.9); Hemoglobin 10.9 g/dL (11.2-15.7); IMMATURE GRAN # 0.02 x10^3u/L (0.001-0.031); IMMATURE GRAN % 0.3 % (0.001-0.429); Lymphocyte (Absolute #) 1.34 x10^3/uL (1.18-3.74); Mean Cell Volume 85.5 fL (79.4-94.8); Mean Corpuscular Hemoglobin 27.8 pg (25.6-32.2); Mean Corpuscular Hgb Concent. 32.5 g/dL (32.2-35.5); Mean Platelet Volume 9.2 fL (9.4-12.3); Monocyte (Absolute #) 0.42 x10^3/uL (0.24-0.86); Monocytes % 5.6 % (4.7-12.5); Neutrophil % 73.7 % (34.0-71.1); Platelet Count 201 x10^3/uL (182-369); Red Blood Count 3.92 x10^6/uL (3.93-5.22); Red Cell Distribution Width 15.5 % (11.7-14.4); White Blood Count 7.4 x10^3/uL (3.98-10.04)
[2024-06-16 09:52] LABS: ALBUMIN 4.2 g/dL (3.5-5.0); ANION GAP 16.8 MEQ/L (5-15); BILIRUBIN,TOTAL 0.3 mg/dL (0.2-1.3); Calcium 8.8 mg/dL (8.4-10.2); Creatinine 1 0.51 mg/dL (0.52-1.04); EST GLOMERULAR FILTRATION RATE 131.9 ML/MIN; Potassium 3.7 mmol/L (3.5-5.1); Total Protein 7.6 g/dL (6.3-8.2)
[2024-06-16] MEDS: Sodium Chloride 0.9% 1000 ML 1,000 ML IV STA (10:14)
[2024-06-16 10:16] LABS: INFLUENZA A NEGATIVE (NEGATIVE); INFLUENZA B NEGATIVE (NEGATIVE); RESPIRATORY SYNCTIAL VIRUS NEGATIVE (NEGATIVE); SARS-CoV-2 Xpert Express NEGATIVE (NEGATIVE)
[2024-06-16] MEDS ORDERED: Zofran 4 MG/2 ML VIAL ONE (10:57)
[2024-06-16] MEDS: Zofran 4 MG/2 ML VIAL IV ONE (10:59)
[2024-06-16] MEDS ORDERED: Ativan 2 MG/1 ML VIAL ONE (11:42)
[2024-06-16] MEDS: Ativan 2 MG/1 ML VIAL IV ONE (11:43)
[2024-06-16 13:38] VITALS: BP 109/58; PULSE 56
== END 2024-06-16 14:00 | disposition home or self-care (01) ==
LOC: ED 09:05
DX: K52.9 Noninfective gastroenteritis and colitis, unspecified (principal); R11.2 Nausea with vomiting, unspecified; R10.13 Epigastric pain; Z79.01 Long term (current) use of anticoagulants; Z79.899 Other long term (current) drug therapy
CPT/HCPCS: 0241U; 36000; 36415; 80053; 82077; 85025; 96374; 96375; 99284; J2060; J2405

== ENCOUNTER 2024-07-29 19:17 | Emergency (ER) | payer MEDICAID ==
[2024-07-29 19:37] VITALS: TEMP 97.8
[2024-07-29] MEDS ORDERED: Zofran 4 MG/2 ML VIAL ONE (19:40)
[2024-07-29] MEDS ORDERED: MORPHINE SULFATE 2 MG INJ ONE (19:40)
[2024-07-29] MEDS: Zofran 4 MG/2 ML VIAL IV ONE (19:41)
[2024-07-29] MEDS: MORPHINE SULFATE 2 MG INJ IV ONE (19:42)
[2024-07-29 19:48] LABS: Absolute Neutrophil Ct (ANC) 4.15 x10^3/uL (1.56-6.13); BASOPHIL % 0.6 % (0.1-1.2); Basophil (Absolute #) 0.04 x10^3/uL (0.01-0.08); Eosinophil (Absolute #) 0.26 x10^3/uL (0.04-0.36); Hematocrit 30.9 % (34.1-44.9); Hemoglobin 9.9 g/dL (11.2-15.7); IMMATURE GRAN # 0.01 x10^3u/L (0.001-0.031); IMMATURE GRAN % 0.2 % (0.001-0.429); Mean Cell Volume 84.2 fL (79.4-94.8); Mean Platelet Volume 9.4 fL (9.4-12.3); Monocyte (Absolute #) 0.56 x10^3/uL (0.24-0.86); Monocytes % 8.6 % (4.7-12.5); Neutrophil % 63.6 % (34.0-71.1); Platelet Count 236 x10^3/uL (182-369); Red Blood Count 3.67 x10^6/uL (3.93-5.22); Red Cell Distribution Width 15.4 % (11.7-14.4); White Blood Count 6.5 x10^3/uL (3.98-10.04)
[2024-07-29 19:54] LABS: HCG URINE TEST NEGATIVE (NEGATIVE)
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
[2024-07-29 20:00] LABS: ALBUMIN 4.2 g/dL (3.5-5.0); ANION GAP 12.4 MEQ/L (5-15); BILIRUBIN,TOTAL 0.4 mg/dL (0.2-1.3); Calcium 9.6 mg/dL (8.4-10.2); Creatinine 1 0.55 mg/dL (0.52-1.04); EST GLOMERULAR FILTRATION RATE 129.6 ML/MIN; Total Protein 7.5 g/dL (6.3-8.2)
[2024-07-29 20:03] LABS: Appearance Clear (Clear); Bacteria None Seen /HPF (None Seen); Bilirubin Negative (Negative); Blood Negative (Negative); Epithelial Cells None Seen /HPF (None Seen); Glucose, Urine Negative (Negative); Hyaline Casts NONE SEEN /LPF (0-2); Ketones Negative (Negative); Leukocyte Esterase Trace (Negative); Nitrite Negative (Negative); Ph 7.5 (4.6-8.0); Protein,Urine Dip Negative (Negative); RBC 0-2 /HPF (0-5); Specific Gravity <=1.005 (1.005-1.030); Urobilinogen 0.2 mg/dL (0.2); WBC 0-2 /HPF (0-5)
--- NOTE | 2024-07-29 21:44 | XRAY ---
CLINICAL HISTORY: ABD PAIN COMPARISON: 07/13/2024 CT. TECHNIQUE: CT of the abdomen and pelvis was performed, with the following protocol: axial images, and reconstructed coronal and sagittal images. No intravenous contrast was administered. One of the following dose reduction techniques was utilized for this exam: Automated exposure control, adjustment of the mA and/or kV according to patient size, and use of iterative reconstruction. FINDINGS: Sections of lower thorax show thick atelectatic band in the left lower lobe. Abdomen: Liver: Normal in size, and density. No focal lesions, cysts, or masses were identified. Gallbladder and Biliary System: Few small cholesterol calculi in the gallbladder lumen. No evidence of acute cholecystitis. Pancreas: Pancreatic head, body, and tail are visualized and appear normal in size and density. No pancreatic masses or calcifications were noted. Spleen: Normal in size, shape, and density. No splenic lesions or masses were identified. Kidneys and Adrenal Glands: Both kidneys are normal in size, shape, and position. Right extrarenal pelvis. No renal calculi or hydronephrosis. Adrenal glands are unremarkable. Pelvis: Urinary Bladder: Ashford's catheter in situ. Thick-walled urinary bladder, despite suboptimal distention with perivesical fat stranding representing features of cystitis. Clinical and laboratory correlation is advised. Peritoneal and Retroperitoneal Structures: No free fluid or abnormal fluid collections were identified within the abdomen or pelvis. No lymphadenopathy was noted. Bowel: Redemonstration of perirectal fat stranding with mild circumferential mural thickening of rectum, possible proctitis. Moderate fecal loading of colon. Rest of the bowel loops appear unremarkable. Appendix appears unremarkable. Bones and Soft Tissues: Exaggeration of lumbar lordosis and mild dextroscoliosis at the thoracolumbar spine. Soft tissue thickening with an area of isoattenuation surrounding fat stranding seen overlying the ischial tuberosity on the right side, reaching up to the skin, possible infectious/inflammatory etiology. Recommended clinical examination with local ultrasound if warranted IMPRESSION: 1. Redemonstration of perirectal fat stranding with mild circumferential mural thickening of the rectum, possible proctitis. Recommended clinical correlation. Underlying inflammatory etiology/ ulcerative colitis needs to be excluded. 2. Moderate fecal loading of colon. 3. Soft tissue thickening with an area of isoattenuation surrounding fat stranding seen overlying the ischial tuberosity on the right side, reaching up to the skin, possible infectious/inflammatory etiology. Recommended clinical examination with local ultrasound if warranted. 4. Cholelithiasis, no evidence of acute cholecystitis. 5. No significant interval changes since the previous study. [facility] ER was called at [phone] at 8:38 PM LIBRARY PARAPROFESSIONAL, 07/29/2024, and Kristine (Nurse) was informed regarding the presence of important medical findings in the report. Electronically Signed by: Mariya Dimas MD. (07/29/2024 21:40:59 EST)
[2024-07-29 23:10] VITALS: BP 119/60; PULSE 51; RESP 15
[2024-08-02 16:44] VITALS: O2SAT 99
== END 2024-07-30 00:02 | disposition home or self-care (01) ==
LOC: ED 19:17
DX: K59.00 Constipation, unspecified (principal); K29.70 Gastritis, unspecified, without bleeding; R10.84 Generalized abdominal pain; R11.2 Nausea with vomiting, unspecified; R42 Dizziness and giddiness; G82.50 Quadriplegia, unspecified; S14.105S Unspecified injury at C5 level of cervical spinal cord, sequela; Z79.01 Long term (current) use of anticoagulants; Z79.891 Long term (current) use of opiate analgesic; Z79.899 Other long term (current) drug therapy; Z72.0 Tobacco use; Z99.3 Dependence on wheelchair; Z59.82 Transportation insecurity
CPT/HCPCS: 36415; 51702; 74176; 80053; 81001; 81025; 83605; 83690; 85025; 96374; 96375; 99284; J2270; J2405

== ENCOUNTER 2024-07-30 14:18 | Emergency (ER) | payer MEDICAID ==
[2024-07-30 14:37] VITALS: TEMP 97
[2024-07-30 14:53] LABS: Absolute Neutrophil Ct (ANC) 3.85 x10^3/uL (1.56-6.13); BASOPHIL % 0.5 % (0.1-1.2); Basophil (Absolute #) 0.03 x10^3/uL (0.01-0.08); Eosinophil % 2.7 % (0.7-5.8); Eosinophil (Absolute #) 0.16 x10^3/uL (0.04-0.36); Hematocrit 29.1 % (34.1-44.9); Hemoglobin 9.4 g/dL (11.2-15.7); IMMATURE GRAN # 0.02 x10^3u/L (0.001-0.031); IMMATURE GRAN % 0.3 % (0.001-0.429); Lymphocyte (Absolute #) 1.45 x10^3/uL (1.18-3.74); Lymphocytes % 24.2 % (19.3-51.7); Mean Cell Volume 84.3 fL (79.4-94.8); Mean Corpuscular Hemoglobin 27.2 pg (25.6-32.2); Mean Corpuscular Hgb Concent. 32.3 g/dL (32.2-35.5); Monocyte (Absolute #) 0.48 x10^3/uL (0.24-0.86); Neutrophil % 64.3 % (34.0-71.1); Platelet Count 242 x10^3/uL (182-369); Red Blood Count 3.45 x10^6/uL (3.93-5.22); Red Cell Distribution Width 15.6 % (11.7-14.4)
--- NOTE | 2024-07-30 15:06 | XRAY ---
Indication: Pneumonia. Comparison: July 23, 2024 Portable chest remains inflated and clear again with a few left lung calcified granulomas. Heart not enlarged with right arm PICC line unchanged in position. No new/acute findings.
[2024-07-30 15:10] LABS: ALBUMIN 3.9 g/dL (3.5-5.0); ANION GAP 13.8 MEQ/L (5-15); BILIRUBIN,TOTAL 0.3 mg/dL (0.2-1.3); Calcium 9.2 mg/dL (8.4-10.2); Creatinine 1 0.58 mg/dL (0.52-1.04); EST GLOMERULAR FILTRATION RATE 127.9 ML/MIN; Potassium 3.7 mmol/L (3.5-5.1); Total Protein 6.8 g/dL (6.3-8.2)
[2024-07-30 15:29] LABS: INFLUENZA A NEGATIVE (NEGATIVE); INFLUENZA B NEGATIVE (NEGATIVE); RESPIRATORY SYNCTIAL VIRUS NEGATIVE (NEGATIVE); SARS-CoV-2 Xpert Express NEGATIVE (NEGATIVE)
[2024-07-30 15:30] LABS: NT PRO BNPII 92.8 pg/mL (<300); TROPONIN < 0.012 ng/mL (0.000-0.033)
[2024-07-30 15:34] VITALS: PULSE 78; RESP 18
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
[2024-07-30 16:38] VITALS: BP 87/39
[2024-07-30 17:11] VITALS: O2SAT 96
[2024-07-30] MEDS ORDERED: PERCOCET TABLET 5/325MG ONE (18:32)
[2024-07-30] MEDS: PERCOCET TABLET 5/325MG PO ONE (18:34)
== END 2024-07-30 19:25 | disposition home or self-care (01) ==
LOC: ED 14:18
DX: R06.02 Shortness of breath (principal); G82.50 Quadriplegia, unspecified; S14.105S Unspecified injury at C5 level of cervical spinal cord, sequela; Z79.01 Long term (current) use of anticoagulants; Z79.891 Long term (current) use of opiate analgesic; Z79.899 Other long term (current) drug therapy; Z72.0 Tobacco use; Z99.3 Dependence on wheelchair; Z59.82 Transportation insecurity
CPT/HCPCS: 0241U; 36415; 71045; 80053; 82077; 83880; 84484; 85025; 93005; 99284; 99283; A9270-GY

== ENCOUNTER 2024-08-15 01:29 | Emergency (ER) | payer MEDICAID ==
[2024-08-15 01:45] VITALS: TEMP 96.8
[2024-08-15 02:05] LABS: Absolute Neutrophil Ct (ANC) 4.01 x10^3/uL (1.56-6.13); BASOPHIL % 0.4 % (0.1-1.2); Basophil (Absolute #) 0.03 x10^3/uL (0.01-0.08); Eosinophil % 4.5 % (0.7-5.8); Eosinophil (Absolute #) 0.31 x10^3/uL (0.04-0.36); Hematocrit 36.7 % (34.1-44.9); Hemoglobin 11.4 g/dL (11.2-15.7); IMMATURE GRAN # 0.01 x10^3u/L (0.001-0.031); IMMATURE GRAN % 0.1 % (0.001-0.429); Lymphocyte (Absolute #) 1.97 x10^3/uL (1.18-3.74); Lymphocytes % 28.8 % (19.3-51.7); Mean Cell Volume 82.8 fL (79.4-94.8); Mean Corpuscular Hemoglobin 25.7 pg (25.6-32.2); Mean Corpuscular Hgb Concent. 31.1 g/dL (32.2-35.5); Mean Platelet Volume 9.8 fL (9.4-12.3); Monocyte (Absolute #) 0.51 x10^3/uL (0.24-0.86); Monocytes % 7.5 % (4.7-12.5); Neutrophil % 58.7 % (34.0-71.1); Platelet Count 206 x10^3/uL (182-369); Red Blood Count 4.43 x10^6/uL (3.93-5.22); Red Cell Distribution Width 15.1 % (11.7-14.4); White Blood Count 6.8 x10^3/uL (3.98-10.04)
[2024-08-15 02:17] LABS: ANION GAP 16.6 MEQ/L (5-15); BILIRUBIN,TOTAL 0.5 mg/dL (0.2-1.3); Calcium 9.7 mg/dL (8.4-10.2); Creatinine 1 0.52 mg/dL (0.52-1.04); EST GLOMERULAR FILTRATION RATE 130.5 ML/MIN; Potassium 4.2 mmol/L (3.5-5.1); Total Protein 9.3 g/dL (6.3-8.2)
[2024-08-15] MEDS ORDERED: TYLENOL EXTRA STRENGTH 500 MG ONE (02:57)
[2024-08-15] MEDS: TYLENOL EXTRA STRENGTH 500 MG PO STA (02:58)
[2024-08-15] MEDS ORDERED: Zofran 4 MG/2 ML VIAL ONE (03:18)
[2024-08-15] MEDS: Zofran 4 MG/2 ML VIAL IV ONE (03:21)
[2024-08-15 03:25] LABS: INFLUENZA A NEGATIVE (NEGATIVE); INFLUENZA B NEGATIVE (NEGATIVE); RESPIRATORY SYNCTIAL VIRUS NEGATIVE (NEGATIVE); SARS-CoV-2 Xpert Express NEGATIVE (NEGATIVE)
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
--- NOTE | 2024-08-15 05:10 | XRAY ---
CLINICAL HISTORY: sob COMPARISON: Prior scan dated May,. TECHNIQUE: Contiguous axial images were obtained from the neck base through the upper abdomen following intravenous administration of contrast material. If IV contrast material had not been administered, the likelihood of detecting abnormalities relevant to the patient's condition would have been substantially decreased. In addition, sagittal and coronal reconstructions were performed. CT scan was performed according to ALARA (as low as reasonable achievable). FINDINGS: The lungs demonstrate few fibrotic bands in the left lower lobe. A calcified nodule is noted in the apicoposterior segment of left upper lobe with surrounding fibrotic bands. No other focal areas of consolidation. The central airways are patent. There are no pleural effusions. No pneumothorax is seen. No axillary, hilar, or mediastinal adenopathy is identified. Bovine configuration of the aortic arch is noted. The heart and pulmonary arteries are of normal size and configuration. No pericardial effusion is identified. Mild dextroconvex lower thoracic scoliosis is noted. Imaged portions of the upper abdomen are unremarkable. No aggressive appearing osseous lesions are identified. IMPRESSION: 1. Stable calcified nodule in left upper lobe with surrounding fibrotic bands, unchanged from prior study. Electronically Signed by: Donis Szymanski MD. (08/15/2024 05:06:22 EST)
[2024-08-15 06:00] LABS: TROPONIN 0.34 ng/mL (0.000-0.033)
[2024-08-15] MEDS ORDERED: BABY ASPIRIN 81 MG CHEW ONE (06:08)
[2024-08-15] MEDS: BABY ASPIRIN 81 MG CHEW PO ONE (06:10)
[2024-08-15] MEDS: Sodium Chloride 0.9% 500 ML 500 ML IV SCH (06:17)
[2024-08-15] MEDS ORDERED: Sodium Chloride 0.9% 500 ML 500 ML IV ONE (06:17)
[2024-08-15 06:49] VITALS: RESP 18
[2024-08-15 07:02] VITALS: BP 110/86; PULSE 103
[2024-08-15 07:36] LABS: Appearance Cloudy (Clear); Bacteria Rare /HPF (None Seen); Bilirubin Negative (Negative); Blood Large (Negative); Epithelial Cells Rare /HPF (None Seen); Glucose, Urine Negative (Negative); Ketones Negative (Negative); Leukocyte Esterase Small (Negative); Nitrite Negative (Negative); Ph 8.5 (4.6-8.0); Protein,Urine Dip 100 (Negative); RBC >100 /HPF (0-5); Specific Gravity >=1.030 (1.005-1.030); Urobilinogen 0.2 mg/dL (0.2); WBC 21-50 /HPF (0-5)
[2024-08-15 07:38] VITALS: O2SAT 98
== END 2024-08-15 07:43 | disposition short-term general hospital (02) ==
LOC: ED 01:29
DX: I21.4 Non-ST elevation (NSTEMI) myocardial infarction (principal); R06.02 Shortness of breath; R05.9 Cough, unspecified; G82.20 Paraplegia, unspecified; Z79.01 Long term (current) use of anticoagulants; R79.89 Other specified abnormal findings of blood chemistry
CPT/HCPCS: 0241U; 36415; 51702; 71260; 80053; 81001; 83605; 83880; 84484; 85025; 85379; 87086; 93005; 96374; 99285; J2405; A9270-GY

== ENCOUNTER 2024-08-28 06:24 | Emergency (ER) | payer MEDICAID ==
[2024-08-28 06:40] VITALS: TEMP 97.3
[2024-08-28 07:56] LABS: Absolute Neutrophil Ct (ANC) 3.36 x10^3/uL (1.56-6.13); BASOPHIL % 0.6 % (0.1-1.2); Basophil (Absolute #) 0.03 x10^3/uL (0.01-0.08); Eosinophil (Absolute #) 0.16 x10^3/uL (0.04-0.36); Hematocrit 31.4 % (34.1-44.9); IMMATURE GRAN # 0.01 x10^3u/L (0.001-0.031); IMMATURE GRAN % 0.2 % (0.001-0.429); Lymphocyte (Absolute #) 1.27 x10^3/uL (1.18-3.74); Lymphocytes % 24.1 % (19.3-51.7); Mean Corpuscular Hemoglobin 26.1 pg (25.6-32.2); Mean Corpuscular Hgb Concent. 31.8 g/dL (32.2-35.5); Mean Platelet Volume 9.8 fL (9.4-12.3); Monocyte (Absolute #) 0.43 x10^3/uL (0.24-0.86); Monocytes % 8.2 % (4.7-12.5); Neutrophil % 63.9 % (34.0-71.1); Platelet Count 289 x10^3/uL (182-369); Red Blood Count 3.83 x10^6/uL (3.93-5.22); Red Cell Distribution Width 17.7 % (11.7-14.4); White Blood Count 5.3 x10^3/uL (3.98-10.04)
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
[2024-08-28 08:19] LABS: ALBUMIN 4.6 g/dL (3.5-5.0); ANION GAP 13.7 MEQ/L (5-15); BILIRUBIN,TOTAL 0.4 mg/dL (0.2-1.3); Calcium 9.3 mg/dL (8.4-10.2); Creatinine 1 0.62 mg/dL (0.52-1.04); EST GLOMERULAR FILTRATION RATE 125.1 ML/MIN; NT PRO BNPII 37.3 pg/mL (<300); Total Protein 8.3 g/dL (6.3-8.2)
[2024-08-28] MEDS ORDERED: BABY ASPIRIN 81 MG CHEW ONE (08:21)
[2024-08-28] MEDS: BABY ASPIRIN 81 MG CHEW PO ONE (08:22)
--- NOTE | 2024-08-28 08:41 | XRAY ---
Indication: Pain. Short of breath. Comparison: July 30, 2024 Portable apical lordotic chest again hyperinflated and clear with a few incidental left lung calcified granulomas. Heart not enlarged with interval PICC line removal. Bony thorax intact again with marked dextroscoliosis and incompletely visualized lower cervical fusion hardware. Impression: Continued nonacute chest with chronic features.
[2024-08-28 10:47] VITALS: RESP 22
[2024-08-28 11:55] VITALS: BP 165/98; PULSE 78; O2SAT 100
== END 2024-08-28 13:24 | disposition home or self-care (01) ==
LOC: ED 06:24
DX: R07.9 Chest pain, unspecified (principal); R06.02 Shortness of breath; G82.50 Quadriplegia, unspecified; Z79.01 Long term (current) use of anticoagulants; Z59.82 Transportation insecurity
CPT/HCPCS: 36415; 51702; 71045; 80053; 83880; 84484; 85025; 85379; 93005; 93041; 94760; 99284; 99285; A9270-GY

== ENCOUNTER 2024-10-02 03:57 | Observation (INO) | payer MEDICAID ==
[2024-10-02] MEDS ORDERED: Zofran 4 MG/2 ML VIAL ONE (04:41)
[2024-10-02] MEDS: Zofran 4 MG/2 ML VIAL IV ONE (04:43)
[2024-10-02 04:56] LABS: Absolute Neutrophil Ct (ANC) 3.35 x10^3/uL (1.56-6.13); BASOPHIL % 0.6 % (0.1-1.2); Basophil (Absolute #) 0.03 x10^3/uL (0.01-0.08); Eosinophil % 0.6 % (0.7-5.8); Eosinophil (Absolute #) 0.03 x10^3/uL (0.04-0.36); Hematocrit 33.8 % (34.1-44.9); Hemoglobin 10.9 g/dL (11.2-15.7); IMMATURE GRAN # 0.02 x10^3u/L (0.001-0.031); IMMATURE GRAN % 0.4 % (0.001-0.429); Lymphocyte (Absolute #) 1.26 x10^3/uL (1.18-3.74); Lymphocytes % 26.1 % (19.3-51.7); Mean Cell Volume 77.3 fL (79.4-94.8); Mean Corpuscular Hemoglobin 24.9 pg (25.6-32.2); Mean Corpuscular Hgb Concent. 32.2 g/dL (32.2-35.5); Mean Platelet Volume 9.7 fL (9.4-12.3); Monocyte (Absolute #) 0.13 x10^3/uL (0.24-0.86); Monocytes % 2.7 % (4.7-12.5); Neutrophil % 69.6 % (34.0-71.1); Platelet Count 243 x10^3/uL (182-369); Red Blood Count 4.37 x10^6/uL (3.93-5.22); Red Cell Distribution Width 16.5 % (11.7-14.4); White Blood Count 4.8 x10^3/uL (3.98-10.04)
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
[2024-10-02] MEDS ORDERED: Sodium Chloride 0.9% 1000 ML 1,000 ML ONE (05:06)
[2024-10-02] MEDS: Sodium Chloride 0.9% 1000 ML 1,000 ML IV SCH ×2 (05:07→11:24)
[2024-10-02 05:10] LABS: ALBUMIN 4.7 g/dL (3.5-5.0); ANION GAP 15.3 MEQ/L (5-15); BILIRUBIN,TOTAL 0.7 mg/dL (0.2-1.3); Calcium 9.3 mg/dL (8.4-10.2); Creatinine 1 0.37 mg/dL (0.52-1.04); EST GLOMERULAR FILTRATION RATE 141.7 ML/MIN; Potassium 3.9 mmol/L (3.5-5.1); Total Protein 8.3 g/dL (6.3-8.2)
[2024-10-02 05:35] LABS: INFLUENZA A NEGATIVE (NEGATIVE); INFLUENZA B NEGATIVE (NEGATIVE); RESPIRATORY SYNCTIAL VIRUS NEGATIVE (NEGATIVE); SARS-CoV-2 Xpert Express NEGATIVE (NEGATIVE)
--- NOTE | 2024-10-02 06:34 | XRAY ---
CLINICAL HISTORY: abd pain/vomiting COMPARISON: Comparison is made with previous imaging dated 08/15/2024. TECHNIQUE: Non-contrast CT of the abdomen and pelvis was performed, with the following protocol: axial images, and reconstructed coronal and sagittal images. One of the following dose reduction techniques was utilized for this exam: Automated exposure control, adjustment of the mA and/or kV according to patient size, and use of iterative reconstruction. FINDINGS: Abdomen: Liver: Normal in size, and density. No focal lesions, cysts, or masses were identified. Gallbladder and Biliary System: Few small calculi in the gallbladder lumen. No evidence of acute cholecystitis. Pancreas: Pancreatic head, body, and tail are visualized and appear normal in size and density. No pancreatic masses or calcifications were noted. Spleen: Normal in size, shape, and density. No splenic lesions or masses were identified. Kidneys and Adrenal Glands: Both kidneys are normal in size, shape, and position. Right extrarenal pelvis. No renal calculi or hydronephrosis. Adrenal glands are unremarkable. Pelvis: Urinary Bladder: In the jamie-superior aspect of the bladder is elongated anterosuperiorly in the midline, giving the possibility of a vesicourachal diverticulum. Peritoneal and Retroperitoneal Structures: No free fluid or abnormal fluid collections were identified within the abdomen or pelvis. No lymphadenopathy was noted. Bowel: Redemonstration of perirectal fat stranding with mild circumferential mural thickening of rectum, possible proctitis. Moderate fecal loading of colon. The rest of the bowel loops appear unremarkable. Appendix appears unremarkable. Uterus: Normal in size and contour. No masses or abnormal thickening. Ovaries: Not well visualized but no gross abnormalities noted. Bones and Soft Tissues: Exaggeration of lumbar lordosis and mild dextroscoliosis at the thoracolumbar spine. Soft tissue thickening with an area of isoattenuation surrounding fat stranding is seen overlying the ischial tuberosity on the right side, reaching up to the skin, possible infectious/inflammatory etiology. IMPRESSION: 1. Redemonstration of perirectal fat stranding with mild circumferential mural thickening of the rectum, possible proctitis. Showing mild interval improvement. 2. Stable Soft tissue thickening with an area of isoattenuation surrounding fat stranding seen overlying the right ischial tuberosity, reaching up to the skin, possible infectious/inflammatory etiology. 4. Stable Cholelithiasis, no evidence of acute cholecystitis. 5. The jamie-superior aspect of the bladder is elongated anterosuperiorly in the midline, giving the possibility of a vesicourachal diverticulum, stable. Recommend scanning with a full bladder. Electronically Signed by: Mariya Dimas MD. (10/02/2024 06:30:51 EST)
[2024-10-02] MEDS ORDERED: Reglan 10 MG/2 ML ONE (06:52)
[2024-10-02] MEDS: Reglan 10 MG/2 ML IV ONE (06:54)
[2024-10-02 06:57] LABS: Appearance Clear (Clear); Bacteria None Seen /HPF (None Seen); Bilirubin Negative (Negative); Blood Trace (Negative); Epithelial Cells Rare /HPF (None Seen); Glucose, Urine Negative (Negative); Ketones >=160 (Negative); Leukocyte Esterase Small (Negative); Nitrite Negative (Negative); Protein,Urine Dip 100 (Negative); RBC 21-50 /HPF (0-5); Specific Gravity 1.025 (1.005-1.030); Urobilinogen 0.2 mg/dL (0.2); WBC 21-50 /HPF (0-5)
[2024-10-02] MEDS ORDERED: PROVENTIL 2.5 MG/3 ML NEB IH ONE (07:56)
[2024-10-02] MEDS: PROVENTIL 2.5 MG/3 ML NEB IH ONE (07:57)
[2024-10-02] MEDS ORDERED: Zofran 4 MG/2 ML VIAL IV PRN (09:09)
[2024-10-02] MEDS: Compazine 10 MG/2 ML IV PRN (09:38)
[2024-10-02] MEDS ORDERED: NON-FORMULARY ITEM (Naloxone Hcl [Narcan] 4 MG Spray) NS PRN (10:40)
[2024-10-02] MEDS ORDERED: TYLENOL EXTRA STRENGTH 500 MG PO PRN (10:40)
[2024-10-02] MEDS ORDERED: ZOFRAN ODT 4 MG PO PRN (10:40)
[2024-10-02] MEDS: ELIQUIS 2.5 MG TABLET PO SCH (11:25)
[2024-10-02] MEDS: Acidophilus TABLET PO SCH (11:25)
[2024-10-02] MEDS: Klor Con PO SCH (11:25)
[2024-10-02] MEDS: XANAX 1 MG PO SCH (11:25)
[2024-10-02] MEDS: BUSPAR 5 MG PO SCH (11:25)
[2024-10-02] MEDS: Neurontin PO SCH (11:25)
[2024-10-02] MEDS: Cyclobenzaprine 10 MG PO SCH (11:25)
[2024-10-02] MEDS: Docusate Sodium 100 MG PO SCH (11:26)
[2024-10-02] MEDS: ULTRAM 50 MG PO SCH (11:26)
[2024-10-02] MEDS: Pepcid 20 MG PO SCH (11:26)
[2024-10-02] MEDS: ATARAX 25 MG PO SCH (11:26)
[2024-10-02] MEDS: Vitamin B-12 500 MCG PO SCH (11:26)
[2024-10-02] MEDS: Protonix 40MG Tablet PO SCH (11:26)
[2024-10-02] MEDS: PROAMATINE PO SCH (11:29)
[2024-10-02] MEDS ORDERED: MEDICATION INTERVENTION MC SCH (11:30)
[2024-10-02] MEDS: Zofran 4 MG/2 ML VIAL IV PRN (11:50)
[2024-10-02] MEDS: Miralax Powder 17GM PACKET PO SCH (14:20)
--- NOTE | 2024-10-02 14:39 | XRAY ---
Indication: Abnormal CT exam. Targeted ultrasound urinary bladder was performed after clamping Ashford balloon catheter. Mildly distended urinary bladder demonstrates balloon tip in the bladder lumen. Anterior urinary bladder wall demonstrates linear hyperechogenicity with posterior comet tail artifact suggesting air. No focal bladder wall mass or diverticulum. Impression: Anterior urinary bladder linear hyperechogenicity with posterior comet tail artifact suggesting air. I believe this corresponds to linear intraluminal air collection seen in near empty urinary bladder performed earlier in the day. This is intraluminal air is much smaller compared to July 29, 2024 and presumed iatrogenic. Gas-forming infection certainly not completely excluded in right clinical setting.
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
[2024-10-02] MEDS: MELATONIN PO SCH (21:56)
[2024-10-02] MEDS: ZOLOFT 50 MG TABLET PO SCH (21:58)
[2024-10-02] MEDS: SENOKOT 8.6 MG PO SCH (21:58)
[2024-10-03 06:32] LABS: Hematocrit 27.9 % (34.1-44.9); Hemoglobin 8.6 g/dL (11.2-15.7); Mean Cell Volume 79.9 fL (79.4-94.8); Mean Corpuscular Hemoglobin 24.6 pg (25.6-32.2); Mean Corpuscular Hgb Concent. 30.8 g/dL (32.2-35.5); Mean Platelet Volume 9.5 fL (9.4-12.3); Platelet Count 162 x10^3/uL (182-369); Red Blood Count 3.49 x10^6/uL (3.93-5.22); Red Cell Distribution Width 17.4 % (11.7-14.4); White Blood Count 3.7 x10^3/uL (3.98-10.04)
[2024-10-03 06:59] LABS: ALBUMIN 3.8 g/dL (3.5-5.0); ANION GAP 11.5 MEQ/L (5-15); BILIRUBIN,TOTAL 0.4 mg/dL (0.2-1.3); Calcium 8.4 mg/dL (8.4-10.2); Creatinine 1 0.55 mg/dL (0.52-1.04); EST GLOMERULAR FILTRATION RATE 128.8 ML/MIN; Potassium 3.9 mmol/L (3.5-5.1); Total Protein 6.7 g/dL (6.3-8.2)
[2024-10-03 07:44] VITALS: RESP 16
[2024-10-03] MEDS: KEFLEX 500 MG PO SCH (14:52)
[2024-10-03] MEDS: VITAMIN D2 PO SCH (14:54)
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
[2024-10-04 05:21] LABS: Hematocrit 29.7 % (34.1-44.9); Hemoglobin 9.5 g/dL (11.2-15.7); Mean Cell Volume 80.1 fL (79.4-94.8); Mean Corpuscular Hemoglobin 25.6 pg (25.6-32.2); Mean Platelet Volume 10.1 fL (9.4-12.3); Platelet Count 180 x10^3/uL (182-369); Red Blood Count 3.71 x10^6/uL (3.93-5.22); Red Cell Distribution Width 17.4 % (11.7-14.4); White Blood Count 3.7 x10^3/uL (3.98-10.04)
[2024-10-04 05:30] LABS: ANION GAP 10.6 MEQ/L (5-15); Calcium 8.8 mg/dL (8.4-10.2); Creatinine 1 0.53 mg/dL (0.52-1.04); EST GLOMERULAR FILTRATION RATE 129.9 ML/MIN
[2024-10-04 08:15] VITALS: O2SAT 96
[2024-10-04 11:57] VITALS: BP 129/79; PULSE 80; TEMP 97.6
[2024-10-04] MEDS: Cipro 500 MG PO SCH (12:51)
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
== END 2024-10-04 14:19 | disposition home health service (06) ==
LOC: ED 03:57 → MED SURG 08:22
PROVIDERS: ADMIT Internal Medicine; ATTEND Internal Medicine
DX: R10.31 Right lower quadrant pain (principal); R11.2 Nausea with vomiting, unspecified; K59.00 Constipation, unspecified; E87.1 Hypo-osmolality and hyponatremia; K62.89 Other specified diseases of anus and rectum; R74.01 Elevation of levels of liver transaminase levels; E86.0 Dehydration; L97.519 Non-pressure chronic ulcer of other part of right foot with unspecified severity; G82.20 Paraplegia, unspecified; Z79.899 Other long term (current) drug therapy; Z97.8 Presence of other specified devices; Z79.01 Long term (current) use of anticoagulants; F41.9 Anxiety disorder, unspecified; F32.A Depression, unspecified; D64.9 Anemia, unspecified
CPT/HCPCS: 0241U; 11042; 29580; 36415; 51702; 74176; 76705; 80048; 80053; 81001; 83690; 85025; 85027; 87040; 87077; 87086; 87186; 93268; 94640; 94760; 96360; 96361; 96374; 96375; 99223; 99285; G0378; P9612; Q3014; J2405; J7609; A9270-GY

== ENCOUNTER 2024-10-07 20:51 | Emergency (ER) | payer MEDICAID ==
[2024-10-07 21:16] VITALS: TEMP 98.1
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
[2024-10-07] MEDS ORDERED: BABY ASPIRIN 81 MG CHEW ONE (21:51)
[2024-10-07 21:53] LABS: Absolute Neutrophil Ct (ANC) 3.48 x10^3/uL (1.56-6.13); BASOPHIL % 0.6 % (0.1-1.2); Basophil (Absolute #) 0.04 x10^3/uL (0.01-0.08); Eosinophil % 2.6 % (0.7-5.8); Eosinophil (Absolute #) 0.18 x10^3/uL (0.04-0.36); Hematocrit 32.1 % (34.1-44.9); Hemoglobin 10.5 g/dL (11.2-15.7); IMMATURE GRAN # 0.01 x10^3u/L (0.001-0.031); IMMATURE GRAN % 0.1 % (0.001-0.429); Lymphocyte (Absolute #) 2.33 x10^3/uL (1.18-3.74); Lymphocytes % 34.2 % (19.3-51.7); Mean Cell Volume 76.8 fL (79.4-94.8); Mean Corpuscular Hemoglobin 25.1 pg (25.6-32.2); Mean Corpuscular Hgb Concent. 32.7 g/dL (32.2-35.5); Mean Platelet Volume 10.6 fL (9.4-12.3); Monocyte (Absolute #) 0.78 x10^3/uL (0.24-0.86); Monocytes % 11.4 % (4.7-12.5); Neutrophil % 51.1 % (34.0-71.1); Platelet Count 230 x10^3/uL (182-369); Red Blood Count 4.18 x10^6/uL (3.93-5.22); Red Cell Distribution Width 17.3 % (11.7-14.4); White Blood Count 6.8 x10^3/uL (3.98-10.04)
[2024-10-07] MEDS: Ativan 0.5 MG PO ONE (21:55)
[2024-10-07] MEDS: BABY ASPIRIN 81 MG CHEW PO ONE (21:56)
[2024-10-07 22:10] LABS: ALBUMIN 4.6 g/dL (3.5-5.0); ANION GAP 16.5 MEQ/L (5-15); BILIRUBIN,TOTAL 0.5 mg/dL (0.2-1.3); Calcium 9.2 mg/dL (8.4-10.2); Creatinine 1 0.5 mg/dL (0.52-1.04); EST GLOMERULAR FILTRATION RATE 131.8 ML/MIN; Potassium 3.8 mmol/L (3.5-5.1); Total Protein 7.8 g/dL (6.3-8.2)
[2024-10-07 22:25] LABS: Amphetamine,Urine NEGATIVE (NEGATIVE); Barbiturate,Urine NEGATIVE (NEGATIVE); Benzodiazepine,Urine POSITIVE (NEGATIVE); Cocaine,Urine NEGATIVE (NEGATIVE); Methadone,Urine NEGATIVE (NEGATIVE); Opiate,Urine NEGATIVE (NEGATIVE); PCP,Urine NEGATIVE (NEGATIVE); THC,Urine NEGATIVE (NEGATIVE)
[2024-10-07 22:26] LABS: HCG SERUM TEST NEGATIVE (NEGATIVE)
[2024-10-07 22:44] VITALS: PULSE 73; RESP 16
[2024-10-07 23:13] VITALS: O2SAT 99
[2024-10-08 03:47] VITALS: BP 89/57
--- NOTE | 2024-10-08 08:45 | XRAY ---
Indication: Chest pain. Comparison: August 28, 2024 Portable apical lordotic chest again demonstrates normal heart and lungs with incidental left lung calcified granuloma. Bony thorax intact again with marked dextroscoliosis and lower cervical fusion hardware. No new/acute findings.
== END 2024-10-08 04:58 | disposition home or self-care (01) ==
LOC: ED 20:51
DX: R07.9 Chest pain, unspecified (principal); Z79.01 Long term (current) use of anticoagulants; Z79.899 Other long term (current) drug therapy
CPT/HCPCS: 36415; 71045; 80053; 80307; 83880; 84484; 84703; 85025; 93005; 99284; 99285; A9270-GY

== ENCOUNTER 2024-11-02 00:56 | Emergency (ER) | payer MEDICAID ==
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
[2024-11-02] MEDS ORDERED: Sodium Chloride 0.9% 1000 ML 1,000 ML ONE (01:26)
[2024-11-02] MEDS ORDERED: SUBLIMAZE 100 MCG/2 ML ONE (01:26)
[2024-11-02] MEDS ORDERED: Zofran 4 MG/2 ML VIAL ONE (01:26)
[2024-11-02] MEDS: Zofran 4 MG/2 ML VIAL IV ONE (01:28)
[2024-11-02] MEDS: Sodium Chloride 0.9% 1000 ML 1,000 ML IV STA (01:28)
[2024-11-02] MEDS: SUBLIMAZE 100 MCG/2 ML IV ONE (01:29)
[2024-11-02 01:35] LABS: Absolute Neutrophil Ct (ANC) 2.95 x10^3/uL (1.56-6.13); BASOPHIL % 0.6 % (0.1-1.2); Basophil (Absolute #) 0.03 x10^3/uL (0.01-0.08); Eosinophil % 1.9 % (0.7-5.8); Hemoglobin 10.4 g/dL (11.2-15.7); IMMATURE GRAN # 0.01 x10^3u/L (0.001-0.031); IMMATURE GRAN % 0.2 % (0.001-0.429); Lymphocyte (Absolute #) 1.67 x10^3/uL (1.18-3.74); Lymphocytes % 32.4 % (19.3-51.7); Mean Cell Volume 78.6 fL (79.4-94.8); Mean Corpuscular Hemoglobin 24.8 pg (25.6-32.2); Mean Corpuscular Hgb Concent. 31.5 g/dL (32.2-35.5); Mean Platelet Volume 10.3 fL (9.4-12.3); Monocytes % 7.8 % (4.7-12.5); Neutrophil % 57.1 % (34.0-71.1); Platelet Count 173 x10^3/uL (182-369); Red Cell Distribution Width 17.5 % (11.7-14.4); White Blood Count 5.2 x10^3/uL (3.98-10.04)
[2024-11-02 01:45] VITALS: TEMP 98.2
[2024-11-02 01:46] LABS: ALBUMIN 4.6 g/dL (3.5-5.0); ANION GAP 14.3 MEQ/L (5-15); BILIRUBIN,TOTAL 0.5 mg/dL (0.2-1.3); Calcium 9.3 mg/dL (8.4-10.2); Creatinine 1 0.6 mg/dL (0.52-1.04); EST GLOMERULAR FILTRATION RATE 126.1 ML/MIN; MAGNESIUM 2.1 mg/dL (1.6-2.3); Potassium 3.6 mmol/L (3.5-5.1); Total Protein 7.9 g/dL (6.3-8.2)
[2024-11-02 02:19] LABS: INFLUENZA A NEGATIVE (NEGATIVE); INFLUENZA B NEGATIVE (NEGATIVE); RESPIRATORY SYNCTIAL VIRUS NEGATIVE (NEGATIVE); SARS-CoV-2 Xpert Express NEGATIVE (NEGATIVE)
[2024-11-02 02:59] LABS: Appearance Cloudy (Clear); Bilirubin Negative (Negative); Blood Large (Negative); Epithelial Cells Few /HPF (None Seen); Glucose, Urine Negative (Negative); Ketones 80 (Negative); Leukocyte Esterase Small (Negative); Nitrite Negative (Negative); Ph 6.5 (4.6-8.0); Protein,Urine Dip 300 (Negative); RBC >100 /HPF (0-5); Specific Gravity 1.025 (1.005-1.030)
[2024-11-02 03:12] LABS: Bacteria Few /HPF (None Seen)
[2024-11-02 03:25] LABS: 027 TOX PROD PRESUMPTIVE NEGATIVE (NEGATIVE); TOXIGENIC C. DIFF ORG NEGATIVE (NEGATIVE)
[2024-11-02 04:15] VITALS: RESP 20
[2024-11-02 05:47] VITALS: BP 99/65; PULSE 76; O2SAT 98
== END 2024-11-02 05:48 | disposition home or self-care (01) ==
LOC: ED 00:56
DX: R10.9 Unspecified abdominal pain (principal); R11.0 Nausea; M79.10 Myalgia, unspecified site; R42 Dizziness and giddiness; G82.50 Quadriplegia, unspecified; S14.105S Unspecified injury at C5 level of cervical spinal cord, sequela; Z79.01 Long term (current) use of anticoagulants; Z79.891 Long term (current) use of opiate analgesic; Z79.899 Other long term (current) drug therapy
CPT/HCPCS: 0241U; 36415; 51702; 80053; 81001; 83690; 83735; 85025; 87040; 87086; 87493; 96361; 96374; 96375; 99284; J2405; J3010

== ENCOUNTER 2024-11-22 10:40 | Day surgery (SDC) | payer MEDICAID ==
[2024-11-22] MEDS: Lactated Ringers 1,000 ML IV SCH (10:00)
[2024-11-22] MEDS ORDERED: Lactated Ringers 1,000 ML IV ONE (10:44)
[2024-11-22] MEDS ORDERED: CEFAZOLIN 2 GM/100 ML NaCl 2 GM/100 ML IVPB IV ONE (10:46)
[2024-11-22] MEDS ORDERED: Transderm Scop 1.5MG Patch ONE (10:46)
[2024-11-22] MEDS ORDERED: TYLENOL EXTRA STRENGTH 500 MG ONE (10:46)
[2024-11-22] MEDS ORDERED: celeBREX 100 MG ONE (10:47)
[2024-11-22] MEDS ORDERED: Decadron 4 MG ONE (10:47)
[2024-11-22] MEDS: Transderm Scop 1.5MG Patch TOP PRN (11:00)
[2024-11-22] MEDS: celeBREX 100 MG PO ONE (11:00)
[2024-11-22] MEDS: Decadron 4 MG PO ONE (11:00)
[2024-11-22] MEDS: TYLENOL EXTRA STRENGTH 500 MG PO ONE (11:00)
[2024-11-22] MEDS ORDERED: CEFAZOLIN 2 GM/100 ML NaCl 2 GM/100 ML IVPB IV SCH (11:00)
[2024-11-22 11:36] VITALS: RESP 16
[2024-11-22 11:39] LABS: Absolute Neutrophil Ct (ANC) 2.31 x10^3/uL (1.56-6.13); BASOPHIL % 0.9 % (0.1-1.2); Basophil (Absolute #) 0.04 x10^3/uL (0.01-0.08); Eosinophil % 2.8 % (0.7-5.8); Eosinophil (Absolute #) 0.13 x10^3/uL (0.04-0.36); Hematocrit 33.1 % (34.1-44.9); Hemoglobin 10.9 g/dL (11.2-15.7); Lymphocyte (Absolute #) 1.73 x10^3/uL (1.18-3.74); Lymphocytes % 37.7 % (19.3-51.7); Mean Cell Volume 78.8 fL (79.4-94.8); Mean Corpuscular Hgb Concent. 32.9 g/dL (32.2-35.5); Mean Platelet Volume 9.6 fL (9.4-12.3); Monocyte (Absolute #) 0.38 x10^3/uL (0.24-0.86); Monocytes % 8.3 % (4.7-12.5); Neutrophil % 50.3 % (34.0-71.1); Platelet Count 257 x10^3/uL (182-369); Red Cell Distribution Width 18.1 % (11.7-14.4); White Blood Count 4.6 x10^3/uL (3.98-10.04)
[2024-11-22 11:42] LABS: HCG URINE TEST NEGATIVE (NEGATIVE)
[2024-11-22 11:45] LABS: ALBUMIN 4.3 g/dL (3.5-5.0); ANION GAP 15.8 MEQ/L (5-15); BILIRUBIN,TOTAL 0.6 mg/dL (0.2-1.3); Creatinine 1 0.55 mg/dL (0.52-1.04); EST GLOMERULAR FILTRATION RATE 128.8 ML/MIN; Potassium 3.8 mmol/L (3.5-5.1); Total Protein 7.7 g/dL (6.3-8.2)
[2024-11-22] MEDS ORDERED: Versed 2 MG/2 ML Injection ONE (12:52)
[2024-11-22] MEDS ORDERED: Zofran 4 MG/2 ML VIAL ONE (12:58)
[2024-11-22] MEDS ORDERED: ROCURONIUM BROMIDE IV ONE (12:58)
[2024-11-22] MEDS ORDERED: propofoL IV ONE (12:58)
[2024-11-22] MEDS ORDERED: BRIDION 200MG/2ML IV ONE (12:58)
[2024-11-22] MEDS ORDERED: Xylocaine-Mpf 2% 5 Ml Vial ONE (12:58)
[2024-11-22] MEDS: Versed 2 MG/2 ML Injection IV ONE (12:59)
[2024-11-22] MEDS ORDERED: SUBLIMAZE 100 MCG/2 ML ONE ×2 (12:59→16:11)
[2024-11-22] MEDS ORDERED: Xylocaine 1% Vial 30 ML PF IJ ONE (13:47)
[2024-11-22] MEDS ORDERED: Thrombin-JMI 5000 UNITS TP ONE (13:47)
[2024-11-22] MEDS ORDERED: XYLOCAINE 1%/Epi 1:100000 MDV 20 ML ONE (13:47)
[2024-11-22] MEDS ORDERED: Marcaine Mpf 0.5% Vial 30 Ml ONE (13:47)
[2024-11-22] MEDS ORDERED: MINERAL OIL LIGHT 10 ML FOR SURGERY ONE (13:47)
--- NOTE | 2024-11-22 15:09 | XRAY ---
Indication: Right foot hardware removal. Intraoperative fluoroscopy provided for 1 minute 57 seconds. 3 digital spot images submitted for interpretation demonstrates removal of 2 of 4 mid foot arthrodesis screws. Correlate with intraoperative findings/report.
--- NOTE | 2024-11-22 15:35 | XRAY ---
One minute and 57 seconds of fluoroscopy was used in surgery for a right foot hardware removal.
[2024-11-22] MEDS ORDERED: TORAdol 30 mg Injection ONE (15:55)
[2024-11-22 17:31] VITALS: BP 134/75; PULSE 79; TEMP 97.3; O2SAT 93
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
== END 2024-11-22 17:47 | disposition home or self-care (01) ==
LOC: SDC 10:40
PROVIDERS: ATTEND Podiatrist Foot & Ankle Surgery
DX: L89.614 Pressure ulcer of right heel, stage 4 (principal); M79.671 Pain in right foot; G82.20 Paraplegia, unspecified; T84.84XA Pain due to internal orthopedic prosthetic devices, implants and grafts, initial encounter; M86.9 Osteomyelitis, unspecified; M76.61 Achilles tendinitis, right leg
CPT/HCPCS: 73630; 76000; 80053; 81025; 85025; A2007; J0690; J1885; J2250; J2405; J2704; J3010; A9270-GY

== ENCOUNTER 2025-06-16 17:34 | Observation (INO) | payer MEDICAID ==
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
[2025-06-16 18:27] LABS: BASOPHIL % 0.6 % (0.1-1.2); Basophil (Absolute #) 0.04 x10^3/uL (0.01-0.08); Eosinophil (Absolute #) 0.16 x10^3/uL (0.04-0.36); Hematocrit 37.5 % (34.1-44.9); Hemoglobin 12.9 g/dL (11.2-15.7); IMMATURE GRAN # 0.02 x10^3u/L (0.001-0.031); IMMATURE GRAN % 0.3 % (0.001-0.429); Lymphocyte (Absolute #) 2.03 x10^3/uL (1.18-3.74); Mean Corpuscular Hemoglobin 32.6 pg (25.6-32.2); Mean Corpuscular Hgb Concent. 34.4 g/dL (32.2-35.5); Monocyte (Absolute #) 0.54 x10^3/uL (0.24-0.86); NUCLEATED RBC # 0.00 x10^3u/L (0.00-0.012); NUCLEATED RBC % 0.0 % (0.00-0.2); Platelet Count 217 x10^3/uL (182-369); Red Blood Count 3.96 x10^6/uL (3.93-5.22); White Blood Count 7.0 x10^3/uL (3.98-10.04)
[2025-06-16 18:33] LABS: Calcium 8.8 mg/dL (8.4-10.2); Carbon Dioxide 25.0 mmol/L (22-30); Creatinine 1 0.54 mg/dL (0.52-1.04); EST GLOMERULAR FILTRATION RATE 129.3 ML/MIN; Glucose 131.0 mg/dL (74-106); Potassium 3.4 mmol/L (3.5-5.1); SGOT/AST 40.0 U/L (14-36); SGPT/ALT 53.0 U/L (0-35); Total Protein 7.6 g/dL (6.3-8.2)
[2025-06-16] MEDS ORDERED: LEVOFLOXACIN 750MG/150ML D5W 750 MG/150 ML BAG IV ONE (18:48)
[2025-06-16] MEDS ORDERED: Inapsine 5 MG/2 ML ONE (18:48)
[2025-06-16] MEDS: Inapsine 5 MG/2 ML IV ONE (18:53)
[2025-06-16] MEDS: LEVOFLOXACIN 750MG/150ML D5W 750 MG/150 ML BAG IV STA (18:54)
[2025-06-16 19:37] LABS: Glucose, Urine Negative (Negative); Protein,Urine Dip 300 (Negative); RBC >100 /HPF (0-5); WBC >100 /HPF (0-5)
[2025-06-16] MEDS ORDERED: Pepcid 20 MG VIAL IV ONE ×2 (19:44→23:10)
[2025-06-16] MEDS ORDERED: Sterile H2O 10 ml IJ ONE ×3 (19:44→23:12)
[2025-06-16] MEDS ORDERED: BENADRYL 50 MG/ML ONE ×2 (19:44→23:10)
[2025-06-16] MEDS: solu-MEDROL 40 MG, Sterile H2O 10 ml 1 ML IV STA (19:45)
[2025-06-16] MEDS: Pepcid 20 MG VIAL IV ONE ×2 (19:45→23:17)
[2025-06-16] MEDS: BENADRYL 50 MG/ML IV ONE ×2 (19:45→23:17)
--- NOTE | 2025-06-16 19:56 | XRAY ---
CLINICAL HISTORY: abd pain COMPARISON: 03/19/2025 CT. TECHNIQUE: Non-contrast CT of the abdomen and pelvis was performed using the following protocol: axial images and reconstructed coronal and sagittal images. No intravenous contrast was administered. One of the following dose reduction techniques was utilized for this exam: automated exposure control, adjustment of mA and/or kV according to patient size, and use of iterative reconstruction. FINDINGS: Abdomen: Liver: The liver is normal in size, shape, and density. No focal lesions, cysts, or masses are identified. Gallbladder and Biliary System: Multiple small gallstones are present within the gallbladder, which are hypoattenuating relative to the surrounding bile. The gallbladder is normal in size and shape. No wall thickening or pericholecystic fluid is identified. Pancreas: The pancreatic head, body, and tail are visualized and appear normal in size and density. No pancreatic masses or calcifications are noted. Spleen: The spleen is normal in size, shape, and density. No splenic lesions or masses are identified. Kidneys and Adrenal Glands: Resolving right-sided perinephric fatty stranding of the infection process is noted. Both kidneys are normal in size, shape, and position. Cortical thickness is within normal limits. No renal calculi or hydronephrosis is present. The adrenal glands are unremarkable. Appendix: The appendix is normal in size without cary-appendiceal fat stranding and without an appendicolith. No evidence of appendiceal abscess or perforation. Pelvis: Urinary bladder: The urinary bladder is empty over a Ashford catheter, hindering proper examination. However, it shows mild circumferential wall thickening. Uterus: The uterus is normal in size and contour. No masses or abnormal thickening are observed. Ovaries: There is regression in the size of the right ovarian cyst, now measuring 3 cm compared to 3.5 cm. Newly developed few vaginal air foci are noted. Peritoneal and Retroperitoneal Structures: No free fluid or abnormal fluid collections are identified within the abdomen or pelvis. No lymphadenopathy is noted. Bowel: Stable, multiple, scattered, diffuse fecal loading is seen, with resolution of the large one in the rectum. Newly found fecal loading within the sigmoid colon is causing mild impaction. Stable, mild perirectal fatty stranding with mild circumferential mural thickening is present. The visualized bowel loops are normal in caliber and appearance. No evidence of bowel obstruction. Bones and Soft Tissues: The pelvic bones and soft tissues are unremarkable. No fractures or abnormal masses are identified. Stable, mild dextroscoliosis is noted. Stable bilateral basal lung fibroatelectatic bands are present. IMPRESSION: 1. The multiple small gallstones are currently hypoattenuating relative to the surrounding bile, likely fatty-containing stones. Advise ultrasound correlation. 2. Regression in the size of the right ovarian cyst. 3. Stable, multiple, scattered, diffuse fecal loading, with resolution of the large one in the rectum and newly found within the sigmoid colon, causing mild impaction. Advise clinical correlation. 4. Stable, mild perirectal fatty stranding with mild circumferential mural thickening. Advise clinical correlation. 5. Resolving right-sided perinephric fatty stranding of the infection process. 6. The urinary bladder is empty over a Ashford catheter, hindering proper examination. However, it shows mild circumferential wall thickening, which could denote cystitis. Advise clinical and urine analysis correlation. 7. Newly developed few vaginal air foci. Advise clinical correlation. 8. No other interval changes. Electronically Signed by: Lonnie Marshall MD. (06/16/2025 19:56:26 EDT)
[2025-06-16] MEDS ORDERED: MAXIPIME 1 GM ONE (20:06)
[2025-06-16] MEDS: MAXIPIME 1 GM** 1 G in Sodium Chloride 0.9% 100 ML IV STA (20:07)
[2025-06-16] MEDS ORDERED: Diflucan 100 MG ONE (20:52)
[2025-06-16] MEDS: Diflucan/Saline 0.2G/100ML PREMIX*** 100 ML IV SCH (20:52)
[2025-06-16] MEDS ORDERED: VANCOMYCIN 1 GRAM/200 ML BAG 1 GM/200 ML PIGGYBACK IV ONE (20:58)
[2025-06-16] MEDS: Diflucan 100 MG PO STA (21:14)
[2025-06-16] MEDS: DIFLUCAN PO ONE (21:17)
[2025-06-16] MEDS: VANCOMYCIN 1 GRAM/200 ML BAG 1 GM/200 ML PIGGYBACK IV ONE (21:26)
[2025-06-16] MEDS: VANCOCIN INJECTION*** 1 GM in Sodium Chloride 0.9% 250 ML 250 ML IV SCH (21:26)
[2025-06-16] MEDS: solu-MEDROL 80 MG, Sterile H2O 10 ml 1 ML IV STA (23:11)
[2025-06-16] MEDS: SENOKOT 8.6 MG PO STA (23:57)
[2025-06-16] MEDS: Docusate Sodium 100 MG PO STA (23:57)
[2025-06-16] MEDS: ELIQUIS 2.5 MG TABLET PO STA (23:57)
[2025-06-17] MEDS ORDERED: xanAX 0.5 MG ONE (01:46)
[2025-06-17] MEDS: xanAX 0.5 MG PO ONE (01:47)
[2025-06-17] MEDS: MELATONIN PO ONE (01:54)
[2025-06-17] MEDS ORDERED: Zofran 4 MG/2 ML VIAL ONE (04:08)
[2025-06-17] MEDS: Zofran 4 MG/2 ML VIAL IV ONE (04:08)
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
[2025-06-17] MEDS ORDERED: NON-FORMULARY ITEM (Potassium Chloride [Potassium Chloride] 20 MEQ Tablet.Er) PO SCH (11:19)
[2025-06-17] MEDS ORDERED: NON-FORMULARY ITEM (Naloxone Hcl [Narcan] 4 MG Spray) NS PRN (11:19)
[2025-06-17] MEDS ORDERED: ZOFRAN ODT 4 MG PO PRN (11:19)
[2025-06-17 11:41] LABS: BASOPHIL % 0.0 % (0.1-1.2); Basophil (Absolute #) 0 x10^3/uL (0.01-0.08); Eosinophil (Absolute #) 0 x10^3/uL (0.04-0.36); Hematocrit 36.7 % (34.1-44.9); Hemoglobin 12.3 g/dL (11.2-15.7); IMMATURE GRAN # 0.03 x10^3u/L (0.001-0.031); IMMATURE GRAN % 0.4 % (0.001-0.429); Lymphocyte (Absolute #) 1.40 x10^3/uL (1.18-3.74); Mean Corpuscular Hemoglobin 31.9 pg (25.6-32.2); Mean Corpuscular Hgb Concent. 33.5 g/dL (32.2-35.5); Monocyte (Absolute #) 0.30 x10^3/uL (0.24-0.86); NUCLEATED RBC # 0.00 x10^3u/L (0.00-0.012); NUCLEATED RBC % 0.0 % (0.00-0.2); Platelet Count 212 x10^3/uL (182-369); Red Blood Count 3.85 x10^6/uL (3.93-5.22); White Blood Count 6.9 x10^3/uL (3.98-10.04)
[2025-06-17 11:53] LABS: Calcium 9.3 mg/dL (8.4-10.2); Carbon Dioxide 22.0 mmol/L (22-30); Creatinine 1 0.38 mg/dL (0.52-1.04); EST GLOMERULAR FILTRATION RATE 140.8 ML/MIN; Glucose 129.0 mg/dL (74-106); Potassium 3.9 mmol/L (3.5-5.1); SGOT/AST 33.0 U/L (14-36); SGPT/ALT 48.0 U/L (0-35); Total Protein 8.0 g/dL (6.3-8.2)
[2025-06-17] MEDS ORDERED: NARCAN 2 MG/2 ML IV PRN (12:04)
[2025-06-17] MEDS: XANAX 1 MG PO SCH (12:19)
[2025-06-17] MEDS: Maxipime 2 GM** 2 G in Sodium Chloride 0.9% 100 ML IV SCH (12:20)
[2025-06-17] MEDS: VENTOLIN COMMON CANISTER IH PRN (12:38)
[2025-06-17] MEDS: TYLENOL 325 MG PO PRN (14:25)
[2025-06-17] MEDS: Docusate Sodium 100 MG PO SCH (14:25)
[2025-06-17] MEDS: ATARAX 25 MG PO SCH (14:25)
[2025-06-17] MEDS: BUSPAR 5 MG PO SCH (14:25)
[2025-06-17] MEDS: Cyclobenzaprine 10 MG PO SCH (14:26)
[2025-06-17] MEDS ORDERED: NON-FORMULARY ITEM (Gabapentin [Gabapentin] 800 MG Tablet) PO SCH (15:00)
[2025-06-17] MEDS ORDERED: NON-FORMULARY ITEM (Cyclobenzaprine Hcl [Cyclobenzaprine Hcl] 5 MG Tablet) PO SCH (15:00)
[2025-06-17] MEDS: TORAdol 30 mg Injection IV ONE (16:24)
[2025-06-17] MEDS: PERCOCET TABLET 5/325MG PO PRN (18:27)
[2025-06-17] MEDS ORDERED: NON-FORMULARY ITEM (Sertraline Hcl [Sertraline Hcl] 100 MG Tablet) PO SCH (22:00)
[2025-06-17] MEDS ORDERED: NON-FORMULARY ITEM (Apixaban [Eliquis] 5 MG Tablet) PO SCH (22:00)
[2025-06-17] MEDS ORDERED: NON-FORMULARY ITEM (Midodrine Hcl [Midodrine Hcl] 10 MG Tablet) PO SCH (22:00)
[2025-06-17] MEDS: ZOLOFT 50 MG TABLET PO SCH (22:11)
[2025-06-17] MEDS: MELATONIN PO SCH (22:11)
[2025-06-17] MEDS: Pepcid 20 MG PO SCH (22:12)
[2025-06-17] MEDS: SENOKOT 8.6 MG PO SCH (22:12)
[2025-06-17] MEDS: PROAMATINE PO SCH (22:12)
[2025-06-17] MEDS: Klor Con PO SCH (22:12)
[2025-06-17] MEDS: ELIQUIS 2.5 MG TABLET PO SCH (22:13)
[2025-06-18 03:40] VITALS: RESP 16
[2025-06-18] MEDS ORDERED: OXYCODONE-ACETAMINOPHEN 10-325 ONE (03:42)
[2025-06-18 04:37] LABS: BASOPHIL % 0.5 % (0.1-1.2); Basophil (Absolute #) 0.03 x10^3/uL (0.01-0.08); Eosinophil (Absolute #) 0.07 x10^3/uL (0.04-0.36); Hematocrit 31.7 % (34.1-44.9); Hemoglobin 10.6 g/dL (11.2-15.7); IMMATURE GRAN # 0.01 x10^3u/L (0.001-0.031); IMMATURE GRAN % 0.2 % (0.001-0.429); Lymphocyte (Absolute #) 2.65 x10^3/uL (1.18-3.74); Mean Corpuscular Hemoglobin 31.9 pg (25.6-32.2); Mean Corpuscular Hgb Concent. 33.4 g/dL (32.2-35.5); Monocyte (Absolute #) 0.52 x10^3/uL (0.24-0.86); NUCLEATED RBC # 0.00 x10^3u/L (0.00-0.012); NUCLEATED RBC % 0.0 % (0.00-0.2); Platelet Count 169 x10^3/uL (182-369); Red Blood Count 3.32 x10^6/uL (3.93-5.22); White Blood Count 6.4 x10^3/uL (3.98-10.04)
[2025-06-18 05:04] LABS: Calcium 8.7 mg/dL (8.4-10.2); Carbon Dioxide 24.0 mmol/L (22-30); Creatinine 1 0.73 mg/dL (0.52-1.04); EST GLOMERULAR FILTRATION RATE 115.5 ML/MIN; Glucose 90.0 mg/dL (74-106); Potassium 4.2 mmol/L (3.5-5.1); SGOT/AST 24.0 U/L (14-36); SGPT/ALT 34.0 U/L (0-35); Total Protein 6.7 g/dL (6.3-8.2)
[2025-06-18] MEDS: PROAMATINE PO SCH (08:18)
--- NOTE | 2025-06-18 08:42 | XRAY ---
Indication: Pain. Multiple contiguous axial images obtained through the thoracic spine. Sagittal and coronal reformatted images obtained. Comparison: CT chest August 15, 2024 Again beam artifact from cervicothoracic junction fusion hardware. Axial images negative for acute fracture, suspicious bony lesions, or spinal canal stenosis. Sagittal and coronal reformatted images again demonstrates normal thoracic kyphosis with moderate elongated thoracolumbar dextroscoliosis centered at T11. Vertebral body heights/disc spaces maintained. Visualized noncontrasted soft tissues again demonstrates tiny left hilar/small left midlung calcified granulomas. Impression: Again dextroscoliosis, beam artifact from cervicothoracic fusion hardware, and old granulomatous disease. Remaining CT thoracic spine negative.
--- NOTE | 2025-06-18 08:44 | XRAY ---
Indication: Pain. Multiple contiguous axial images obtained through the lumbar spine. Sagittal and coronal reformatted images obtained. Comparison: CT abdomen/pelvis 1 day earlier. Axial images again negative for acute fracture, suspicious bony lesions, or spinal canal stenosis. Facets are symmetric. Sagittal and coronal reformatted images again demonstrates normal lumbar lordosis with moderate elongated thoracolumbar dextroscoliosis centered at T11. Vertebral body heights/disc spaces maintained. Visualized noncontrasted soft tissues again demonstrates moderate diffuse colonic fecal debris and several tiny cholesterol gallstones. Impression: No change compared to yesterday exam. Again dextroscoliosis, diffuse colonic fecal stasis, and cholesterol gallstones. No new/acute findings.
[2025-06-18] MEDS: ECOTRIN 81 MG PO SCH (09:21)
[2025-06-18] MEDS: FEOSOL 325 MG PO SCH (09:22)
[2025-06-18] MEDS: Acidophilus TABLET PO SCH (09:22)
[2025-06-18] MEDS: Protonix 40MG Tablet PO SCH (09:22)
[2025-06-18] MEDS: Vitamin B-12 500 MCG PO SCH (09:22)
[2025-06-18] MEDS: FOLATE 1 MG PO SCH (09:22)
--- NOTE | 2025-06-18 09:22 | PCM.DS ---
Discharge Summary Date of Admission: 06/17/25 09:35 Date of Discharge: 06/18/25 Admitting Physician: TEMO BIGGS MD Primary Care Provider: RENETTA SHANE MD Allergies Allergies levofloxacin [From Levaquin] Allergy (Intermediate, Verified 06/17/25 13:38) TONGUE SWELLING GIVEN AT SAME TIME DROPERIDOL, UNSURE WHICH CAUSED REACTION droperidol Allergy (Verified 06/17/25 13:38) TONGUE SWELLING GIVEN AT SAME TIME LEVAQUIN, UNSURE WHICH CAUSED REACTION hydrocodone Adverse Reaction (Mild, Verified 06/16/25 17:37) Nausea and Vomiting Hospital Summary - Hospital Course Hospital Course: Ms. Arzola is a 29 year old female with a history of C5C7 complete quadriplegia, chronic indwelling Ashford catheter, prior myocardial infarction, and chronic pain on multiple sedating agents (Xanax, gabapentin, and Flexeril) who was admitted for evaluation and management of urinary tract infection. On presentation, the patient was afebrile and hemodynamically stable, with no acute distress. Patient also reported thoracic and lumbar back pain which is chronic but increased. CT of the thoracic and lumbar spine showed no acute findings. CT abdomen/pelvis demonstrated mild bladder wall thickening consistent with cystitis, mild fecal loading, and cholelithiasis without evidence of cholecystitis. The Ashford catheter was replaced in the ED. During hospitalization, the patient was treated empirically with cefepime, with plans to complete the course as oral cefpodoxime at discharge. Her symptoms and vitals improved, and she remained clinically stable for discharge home.Laboratory evaluation on 06/18 revealed WBC 6.4 and CMP within normal limits, including stable renal and hepatic function. Urinalysis was positive for infection, and urine culture later speciated Klebsiella sensitive to cefpodoxime. Patient requesting opiodid analgesics for her chronic back pain. Given her extensive sedating medication regimen and baseline hypotension requiring midodrine, the risks of opioid prescribing were discussed in detail. Due to the high risk for respiratory depression, sedation, and hypotensive events with concurrent benzodiazepine, gabapentin, and muscle relaxant use, opioid analgesics (e.g., Percocet) were not prescribed. The patient was counseled regarding opioid safety, advised on alternative pain management strategies, and will follow up with her primary care provider within one week for reassessment and potential outpatient pain management referral. Discharge Note New Diagnosis: UTI New Medications: Cefpodoxime Follow Up: PCP I spent 35 minutes [id number] with the patient on the day of discharge performing discharge exam, discussing hospital stay and discharge instructions with patient and caregivers, preparation of discharge records, prescriptions & referral forms and addressing any questions/concerns the patient had as documented above. - Vitals & Intake/Output Vital Signs: Vital Signs Temperature 97.9 F 06/18/25 07:00 Pulse Rate 75 06/18/25 07:00 Respiratory Rate 16 06/18/25 07:00 Blood Pressure 93/47 06/18/25 07:00 O2 Sat by Pulse Oximetry 99 06/18/25 07:00 Intake & Output: Intake & Output 06/15/25 06/16/25 06/17/25 06/18/25 11:59 11:59 11:59 11:59 Intake Total 960 Output Total 1575 Balance -615 Weight 81 kg 73.8 kg - Lab Result Diagrams: 06/18/25 04:13 06/18/25 04:13 Lab Results-Last 24 Hrs: Lab Results-Last 24 Hours 06/17/25 06/17/25 06/17/25 Range/Units 11:38 11:38 11:38 WBC 6.9 (3.98-10.04) x10^3/uL RBC 3.85 L (3.93-5.22) x10^6/uL Hgb 12.3 (11.2-15.7) g/dL Hct 36.7 (34.1-44.9) % MCV 95.3 H (79.4-94.8) fL MCH 31.9 (25.6-32.2) pg MCHC 33.5 (32.2-35.5) g/dL RDW 12.8 (11.7-14.4) % Plt Count 212 (182-369) x10^3/uL MPV 9.2 L (9.4-12.3) fL Gran % 75.0 H (34.0-71.1) % Immature Gran % (Auto) 0.4 (0.001-0.429) % Nucleat RBC Rel Count 0.0 (0.00-0.2) % Eos # (Auto) 0 L (0.04-0.36) x10^3/uL Immature Gran # (Auto) 0.03 (0.001-0.031) x10^3u/L Absolute Lymphs (auto) 1.40 (1.18-3.74) x10^3/uL Absolute Monos (auto) 0.30 (0.24-0.86) x10^3/uL Absolute Nucleated RBC 0.00 (0.00-0.012) x10^3u/L Lymphocytes % 20.3 (19.3-51.7) % Monocytes % 4.3 L (4.7-12.5) % Eosinophils % 0.0 L (0.7-5.8) % Basophils % 0.0 L (0.1-1.2) % Absolute Granulocytes 5.17 (1.56-6.13) x10^3/uL Basophils # 0 L (0.01-0.08) x10^3/uL Sodium 136 (135-145) mmol/L Potassium 3.9 (3.5-5.1) mmol/L Chloride 105 (98-107) mmol/L Carbon Dioxide 22 (22-30) mmol/L Anion Gap 13.0 (5-15) MEQ/L BUN 7 (7-17) mg/dL Creatinine 0.38 L (0.52-1.04) mg/dL Estimated GFR 140.8 ML/MIN Glucose 129 H (74-106) mg/dL Calcium 9.3 (8.4-10.2) mg/dL Total Bilirubin 0.50 (0.2-1.3) mg/dL AST 33 (14-36) U/L ALT 48 H (0-35) U/L Alkaline Phosphatase 58 (38-126) U/L Serum Total Protein 8.0 (6.3-8.2) g/dL Albumin 4.4 (3.5-5.0) g/dL Prealbumin 11.81 L (17.6-36.0) mg/dL 06/18/25 06/18/25 Range/Units 04:13 04:13 WBC 6.4 (3.98-10.04) x10^3/uL RBC 3.32 L (3.93-5.22) x10^6/uL Hgb 10.6 L (11.2-15.7) g/dL Hct 31.7 L (34.1-44.9) % MCV 95.5 H (79.4-94.8) fL MCH 31.9 (25.6-32.2) pg MCHC 33.4 (32.2-35.5) g/dL RDW 13.4 (11.7-14.4) % Plt Count 169 L (182-369) x10^3/uL MPV 9.9 (9.4-12.3) fL Gran % 48.9 (34.0-71.1) % Immature Gran % (Auto) 0.2 (0.001-0.429) % Nucleat RBC Rel Count 0.0 (0.00-0.2) % Eos # (Auto) 0.07 (0.04-0.36) x10^3/uL Immature Gran # (Auto) 0.01 (0.001-0.031) x10^3u/L Absolute Lymphs (auto) 2.65 (1.18-3.74) x10^3/uL Absolute Monos (auto) 0.52 (0.24-0.86) x10^3/uL Absolute Nucleated RBC 0.00 (0.00-0.012) x10^3u/L Lymphocytes % 41.2 (19.3-51.7) % Monocytes % 8.1 (4.7-12.5) % Eosinophils % 1.1 (0.7-5.8) % Basophils % 0.5 (0.1-1.2) % Absolute Granulocytes 3.15 (1.56-6.13) x10^3/uL Basophils # 0.03 (0.01-0.08) x10^3/uL Sodium 136 (135-145) mmol/L Potassium 4.2 (3.5-5.1) mmol/L Chloride 106 (98-107) mmol/L Carbon Dioxide 24 (22-30) mmol/L Anion Gap 10.7 (5-15) MEQ/L BUN 16 (7-17) mg/dL Creatinine 0.73 (0.52-1.04) mg/dL Estimated GFR 115.5 ML/MIN Glucose 90 (74-106) mg/dL Calcium 8.7 (8.4-10.2) mg/dL Total Bilirubin 0.10 L (0.2-1.3) mg/dL AST 24 (14-36) U/L ALT 34 (0-35) U/L Alkaline Phosphatase 52 (38-126) U/L Serum Total Protein 6.7 (6.3-8.2) g/dL Albumin 3.8 (3.5-5.0) g/dL Prealbumin (17.6-36.0) mg/dL Micro Results-Entire Visit: Microbiology 06/16/25 19:11 Urine Culture - Final Catherized Klebsiella Pneumoniae - Radiology Exams Ordered Rad Exams-Entire Visit: Radiology Procedures Category Date Time Status ABDOMEN AND PELVIS W/0 CONTRAS [CT] Stat Exams 06/16/25 18:38 Completed LUMBAR SPINE W/O [CT] Urgent Exams 06/17/25 18:15 Completed THORACIC SPINE W/O CONTRAST [CT] Urgent Exams 06/17/25 18:15 Completed - Procedures and Test Procedures and Tests throughout Hospitalization: Therapy Orders & Screens 06/17/25 11:23 Respiratory Therapy Consult ONCE Comment: Reason For Exam: Diagnosis: UTI 06/17/25 12:39 Respiratory Therapy Assessment DAILY Comment: Diagnosis: UTI Discharge Exam General Appearance: no apparent distress Neurologic Exam: alert, oriented x 3, cooperative Eye Exam: PERRL Ears, Nose, Throat Exam: normal ENT inspection Neck Exam: normal inspection Respiratory Exam: normal breath sounds, lungs clear Cardiovascular Exam: regular rate/rhythm, normal heart sounds Gastrointestinal/Abdomen Exam: soft, normal bowel sounds Pelvic Exam: deferred Rectal Exam: deferred Back Exam: normal inspection Extremity Exam: paralysis Skin Exam: normal color Final Diagnosis/Problem List - Final Discharge Diagnosis/Problem (1) Complicated UTI (urinary tract infection) Current Visit: Yes Status: Acute Assessment & Plan: -Urinalysis positive; culture grew Klebsiella pneumoniae sensitive to cefpodoxime. -CT abdomen/pelvis showed mild bladder wall thickening consistent with cystitis. -Completed inpatient cefepime; discharge on cefpodoxime to complete antibiotic course. -Ashford catheter replaced in ED; continue routine catheter care. -Encourage oral hydration; monitor for fever, dysuria, or suprapubic pain. -Follow-up: PCP in 1 week for symptom reassessment and repeat urinalysis if indicated. Code(s): N39.0 - URINARY TRACT INFECTION, SITE NOT SPECIFIED (2) Transaminitis Current Visit: Yes Status: Acute Assessment & Plan: Resolved Likely reactive and improved; no further inpatient workup indicated. Code(s): R74.01 - ELEVATION OF LEVELS OF LIVER TRANSAMINASE LEVELS (3) Hypokalemia Current Visit: Yes Status: Acute Assessment & Plan: Corrected with oral potassium per protocol during admission. continue home potassium Code(s): E87.6 - HYPOKALEMIA (4) Constipation Current Visit: Yes Status: Acute Assessment & Plan: CT demonstrated fecal loading and mild sigmoid impaction Bowel regimen initiated with polyethylene glycol and senna; continue at home Code(s): K59.00 - CONSTIPATION, UNSPECIFIED (5) Cholelithiasis Current Visit: Yes Status: Acute Assessment & Plan: CT abdomen showed multiple small gallstones without signs of acute cholecystitis. No intervention indicated at this time. Recommend outpatient RUQ ultrasound if symptoms develop. (6) Quadriplegia, C5-C7 complete Current Visit: Yes Status: Acute Assessment & Plan: Continue pressure ulcer prevention, skin integrity monitoring, and regular repositioning. Maintain bowel and bladder regimen. Code(s): G82.53 - QUADRIPLEGIA, C5-C7 COMPLETE (7) Chronic indwelling Ashford catheter Current Visit: Yes Status: Acute Assessment & Plan: Ashford replaced during admission for infection source control. Continue proper catheter hygiene and drainage maintenance at home. Code(s): Z97.8 - PRESENCE OF OTHER SPECIFIED DEVICES (8) History of NH (myocardial infarction) Current Visit: Yes Status: Acute Assessment & Plan: Stable throughout admission. Continue secondary prevention regimen per outpatient cardiology plan. Code(s): I25.2 - OLD MYOCARDIAL INFARCTION - Discharge Discharge Date: 06/18/25 Disposition: Home, Self-Care Condition: Stable Prescriptions: New Cefpodoxime Proxetil 200 mg [Vantin 200 mg] 200 mg PO BID PRN 10 Days #20 tablet Continue Midodrine HCl 10 mg PO BID Lactobacillus Acidophilus [Acidophilus] 1 tab PO DAILY Gabapentin 800 mg PO TID Famotidine 20 mg [Pepcid 20 MG] 20 mg PO BID Docusate Sodium 100 mg [Docusate Sodium 100 MG] 100 mg PO TID Apixaban [Eliquis] 5 mg PO BID ALPRAZolam [Xanax] 1 mg PO QID Sertraline HCl 100 mg PO HS Sennosides [Senna] 17.2 mg PO HS Buspirone HCl 5 mg [Buspar 5 mg] 15 mg PO TID Cyanocobalamin (Vitamin B-12) [Vitamin B-12] 1,000 mg PO DAILY Hydroxyzine HCl 25 mg [Atarax 25 mg] 25 mg PO TID Ergocalciferol (Vitamin D2) [Vitamin D2] 50,000 unit PO UD Melatonin 3 mg PO QHS Cyclobenzaprine HCl 5 mg PO TID Naloxone HCl [Narcan] 4 mg NS DAILY PRN PRN 1 Days #1 blist PRN Reason: Respiratory Depression Potassium Chloride 20 meq PO BID 3 Days #6 tablet Ondansetron ODT 4 MG [Zofran Odt 4 mg] 4 mg PO Q6H PRN PRN #10 tablet PRN Reason: Nausea PANTOPRAZOLE 40 mg Tablet [Protonix 40MG Tablet] 40 mg PO QAM #30 tab Folic Acid 1 mg [Folate 1 mg] 1 mg PO DAILY Ferrous Sulfate 325 mg [Feosol 325 mg] 325 mg PO DAILY Aspirin EC 81 mg [Ecotrin 81 mg] 81 mg PO DAILY Albuterol Sulfate [Albuterol Sulfate Hfa] 1 - 2 puffs PO QID PRN Follow up with: RENETTA SHANE MD [Primary Care Provider, [facility]]
[2025-06-18] MEDS ORDERED: LACTOBACILLUS ACIDOPHILUS PO SCH (10:00)
[2025-06-18] MEDS ORDERED: NON-FORMULARY ITEM (Cyanocobalamin (Vitamin B-12) [Vitamin B-12] 1,000 MCG Tablet) PO SCH (10:00)
[2025-06-18 15:46] VITALS: BP 91/52; PULSE 84; TEMP 98.2; O2SAT 97
[2025-06-19] MEDS ORDERED: VITAMIN D2 PO SCH (10:00)
== END 2025-06-18 18:30 | disposition home or self-care (01) ==
LOC: ED 17:34 → MED SURG 06-17 09:35
PROVIDERS: ADMIT Internal Medicine; ATTEND Internal Medicine
DX: N39.0 Urinary tract infection, site not specified (principal); G82.50 Quadriplegia, unspecified; I25.2 Old myocardial infarction; B96.1 Klebsiella pneumoniae [K. pneumoniae] as the cause of diseases classified elsewhere; R74.01 Elevation of levels of liver transaminase levels; E87.6 Hypokalemia; K59.00 Constipation, unspecified; K80.20 Calculus of gallbladder without cholecystitis without obstruction; Z79.899 Other long term (current) drug therapy; Z97.8 Presence of other specified devices; Z79.01 Long term (current) use of anticoagulants